=== PATIENT | female | born 1955 | race Caucasian/White ===

== ENCOUNTER → 2017-10-23 | Outpatient (CLI) | payer OTHER | LOC: CIMAGING 08:07 | PROVIDERS: ATTEND Internal Medicine Hematology & Oncology | DX: R63.4 Abnormal weight loss (principal); D64.9 Anemia, unspecified | CPT/HCPCS: 71020-PO; 76700-PO ==

== ENCOUNTER 2017-11-22 13:10 | Inpatient (IN) | payer OTHER ==
--- NOTE | 2017-11-22 13:22 | EDPHY ---
H & P Time Seen by Provider: 11/22/17 13:11 HPI/ROS: CHIEF COMPLAINT: Dizziness, vertigo, weight loss, bladder pain HISTORY OF PRESENT ILLNESS: Patient developed Lyme disease 4 years ago in [place]. She then moved into a house in [place] and felt like she got exposed to something in the air and has been sick since. Patient was diagnosed with anemia by Dr. Powell in January and referred to Dr. Jorge from [facility]. The patient is recently had ultrasound of her abdomen and chest x-ray and a CT scan 2 weeks ago that apparently showed some small intestine mass and she is supposed to get an MRCP for follow-up. She developed bladder pain over the past week but had a negative urinalysis at her primary care physician's office this past Monday. Today she presents with severe vertigo which started 4 days ago. She describes it as like "a ceiling fan "which is worse with movement and turning her head and better when she lies still in closes her eyes. It is not associated with headache or neck pain. Today she was having tachycardia and difficulty walking and severe vertigo so presents to the ED for evaluation. REVIEW OF SYSTEMS: Eye: no change in vision or double vision ENT: no sore throat Cardiac: no chest pain or syncope Pulmonary: Persistent cough but no hemoptysis Abdomen: Decreased oral intake but no vomiting or diarrhea, abdominal bloating. Musculoskeletal: no back pain or neck pain Skin: no rash Neuro: no headache Constitutional: Patient has had night sweats and 30 lb weight loss over the past year. She had TB testing a year and half ago which was negative. : no urinary symptoms A comprehensive 10 point review of systems is otherwise negative aside from elements mentioned in the history of present illness. PAST MEDICAL HISTORY: Anemia for which she saw Dr. Jorge recently Social history: , has been to [facility], no drugs General Appearance: Alert and conversant, cooperative. She is quite thin. Eyes: No scleral icterus. Pupils equal round reactive and extraocular motions intact. ENT, Mouth: Normal mucous membranes. Respiratory: Normal respiratory effort, breath sounds equal, lungs are clear to auscultation. Cardiovascular: Regular rate and rhythm. Gastrointestinal: Abdomen is soft and non tender. Neurological: Alert, face symmetric, normal motor and sensory in extremities. Normal [id number]-wert bilaterally and no pronator drift, speech is symmetric. Skin: Warm and dry, no rashes. Musculoskeletal: No peripheral edema. Psychiatric: Not agitated. Emergency Department course/MDM: Meclizine 25 mg, labs, discussion with [facility]. Admission for complicated patient with multiple worsening severe symptoms and vertigo which is disabling because she has trouble walking today secondary to symptoms. Appears to be peripheral vertigo, no headache, no neck pain, normal neurologic examination, extinguishes at rest. Chest x-ray and ultrasound reports dated October 23 show normal chest x-ray and possible gallstone. Discussed Viv Garcia who will consult, possibly continue Luisito's outpatient workup as inpatient. Constitutional: Initial Vital Signs Temperature (C) 37.2 C 11/22/17 13:19 Heart Rate 117 H 11/22/17 13:19 Respiratory Rate 16 11/22/17 13:19 Blood Pressure 126/84 H 11/22/17 13:19 O2 Sat (%) 96 11/22/17 13:19 O2 Delivery Mode Room Air Allergies/Adverse Reactions: Penicillins Allergy (Verified 11/22/17 13:19) Sulfa (Sulfonamide Antibiotics) Allergy (Verified 11/22/17 13:18) Home Medications: Medication Instructions Recorded NK [No Known Home Meds] 11/22/17 Medical Decision Making - Diagnostics EKG Interpretation: 12-lead EKG interpreted by me; official reading is in trace master. My interpretation is sinus tachycardia otherwise normal, normal intervals. Differential Diagnosis: Differential diagnosis considered for dizziness including but not limited to peripheral and central causes of vertigo, orthostatic causes including dehydration, and blood loss. Consult/Admit Bed Type: [facility], Viv Garcia for [place] [id number] - Data Points Laboratory Results: Laboratory Results 11/22/17 13:25 11/22/17 13:25 Medications Given: Ertapenem (Invanz) 1 gm IVP DAILY NETTIE PRN Reason: Protocol Stop: 12/22/17 20:59 Last Admin: 11/22/17 22:42 Dose: 1 gm Lactated Ringer's (Lr) 1,000 mls @ 100 mls/hr IV CONT NETTIE Stop: 05/21/18 15:29 Last Admin: 11/22/17 16:24 Dose: 1,000 mls Discontinued Medications Acetaminophen (Tylenol) 1,000 mg PO ONCE ONE Stop: 11/22/17 17:42 Last Admin: 11/23/17 04:11 Dose: Not Given Diphenhydramine HCl (Benadryl) 50 mg PO ONCE ONE Stop: 11/22/17 17:43 Last Admin: 11/23/17 00:57 Dose: 25 mg Levofloxacin (Levaquin) 750 mg PO DAILY AT 10AM NETTIE PRN Reason: Protocol Stop: 12/22/17 15:14 Last Admin: 11/23/17 04:11 Dose: Not Given Levofloxacin (Levaquin) 500 mg PO DAILY AT 10AM NETTIE PRN Reason: Protocol Stop: 12/22/17 15:14 Last Admin: 11/22/17 15:13 Dose: 500 mg Meclizine HCl (Meclizine Hcl) 25 mg PO EDNOW ONE Stop: 11/22/17 13:53 Last Admin: 11/22/17 14:11 Dose: 25 mg Departure - Departure Disposition: [facility] Acute Clinical Impression: Vertigo Anemia Qualifiers: Anemia type: unspecified type Qualified Code(s): D64.9 - Anemia, unspecified Condition: Good
[2017-11-22 13:42] LABS: PLATELET COUNT 492 10^3/uL (150-400)
[2017-11-22] MEDS ORDERED: MECLIZINE HCL 25 MG TAB PO ONE (13:52)
--- NOTE | 2017-11-22 14:42 | CPEKG ---
Heart Rate: 111 RR Interval: 541 P-R Interval: 136 QRSD Interval: 68 QT Interval: 340 QTC Interval: 462 P Roxbury: 59 QRS Roxbury: 12 T Wave Roxbury: 56 EKG Severity - OTHERWISE NORMAL ECG - EKG Impression: SINUS TACHYCARDIA Electronically Signed By: Barry Tavarez 22-Nov-2017 14:42:13
[2017-11-22] MEDS ORDERED: MECLIZINE HCL 25 MG TAB PO PRN (15:05)
[2017-11-22] MEDS ORDERED: levOFLOXACIN 500 MG/DEXTROSE/100 ML BAG IV ONE (15:05)
[2017-11-22] MEDS ORDERED: ONDANSETRON 4 MG/2 ML VIAL IVP PRN (15:25)
[2017-11-22] MEDS ORDERED: ACETAMINOPHEN 325 MG TAB PO PRN (15:25)
[2017-11-22] MEDS ORDERED: ONDANSETRON DISINTEGRATING 4 MG TAB PO PRN (15:25)
[2017-11-22] MEDS ORDERED: LR 1,000 ML IV SCH (15:30)
--- NOTE | 2017-11-22 16:07 | GHP ---
[f rep st] HISTORY AND PHYSICAL DATE OF ADMISSION: 11/22/2017 CHIEF COMPLAINT: Vertigo. HISTORY OF PRESENT ILLNESS: A 62-year-old female with a complicated recent history, presents with about 4 days of vertigo. Described as a sensation of the room spinning. She has felt nauseous, has had no vomiting, has not fallen, but has come close. This has been associated with some tachycardia. She does not have any real chest pain either. She has never had an episode of vertigo before. She has had a few episodes of tachycardia associated with hypotension, the last about 3 months ago when she was on an airplane. She has not fallen or had syncope, though she felt as though she were close. She has not had any significant workup for that. She has recently been seeing Dr. Jorge for workup of an intestinal mass. She had a CT scan done at [facility], which I reviewed with Dr. 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 She has leukocytosis, anemia, and significant thrombocytosis. She has an elevated alk phos, with a low LDH. She is quite iron deficient anemia, has received IV iron in Dr. Jorge's office. She also describes foul-smelling urine with a sense of dysuria and frequency. This has been going on for some time. She reports a negative urinalysis. She has not had any vomiting or nausea. She has had very strange bowel movements, which she describes as mucousy, nonbloody, nonbilious. They are mostly gas. She also notes that her abdomen has become more distended. She has lost 30 pounds over the last year unintentionally. She has had night sweats, which have been profound for about the last year. PAST MEDICAL/SURGICAL HISTORY: 1. Reported Lyme disease. 2. 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 MEDICATIONS: None. ALLERGIES: Penicillin and sulfa. FAMILY HISTORY: Reviewed and noncontributory. 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 REVIEW OF SYSTEMS: A 10-point review of systems is conducted, and is negative, except per HPI. PHYSICAL EXAM: VITAL SIGNS: Blood pressure 123/71, heart rate 112, respiration rate 18, saturating 97% on room air. Temperature is 37.2. GENERAL : The patient is a very pleasant female, who appears somewhat uncomfortable, in no acute distress. HEENT: Shows to be normocephalic, atraumatic. CARDIOVASCULAR: Shows a regular rate and rhythm. No murmurs, rubs, or gallops. PULMONARY: Shows lungs clear to auscultation bilaterally. ABDOMEN: Soft. She has mildly distended and somewhat tympanic. She is tender to palpation, somewhat diffusely. SKIN: Shows no rash. : Shows no Croft. NEUROLOGIC: Shows her to be alert and oriented x3. She is moving all extremities. PSYCHIATRIC: Shows normal mood and affect. LABS: White count 15.4, hemoglobin 8.4, platelets are 492. Sodium 132. Urinalysis shows 50-182 whites. There is 1+ bacteria. Some blood protein. DATA: 1. I discussed this with Dr. Walker. We will admit to med/surg. 2. I reviewed this with Dr. Gu. Summarized per HPI. 3. I personally viewed and interpreted her EKG, this shows sinus tachycardia. Nothing acutely ischemic. IMPRESSION AND PLAN: 1. 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 Garcia for some advice on further workup. The patient reports an MRCP had been ordered, though I am unsure exactly how this will help , I will hold off on ordering that for now. May be difficult to get to endoscopically. We will place further orders after discussing with Dr. Garcia. 2. Vertigo: Concerning in the setting of possible small bowel lymphoma. I have ordered a CT head, consider MRI. 3. Leukocytosis, anemia, thrombocytosis: Due to underlying process. She declined a bone marrow biopsy, this would be indicated. 4. Elevated alkaline phosphatase: No bone involvement seen on CT scan. I do note that she had a possible polyp on an ultrasound, with a recommended 6 month followup. 5. Iron deficiency anemia: She has received IV iron. She is still anemic, however, this has improved. 6. Code status: She would like to be full code, but would not want to be kept along in a prolonged fashion on machines. ADDENDUM: discussed with Lucy Garcia and Yue Plan: - MR enterography to help localize tumor - possible EGD/EUS with biopsy - check Lyme PCR as it can be associated with lymphoma - treat UTI /[id number]/MODL MTDD
[2017-11-22] MEDS ORDERED: ACETAMINOPHEN 500 MG TAB PO ONE (17:41)
[2017-11-22] MEDS ORDERED: diphenhydrAMINE 25 MG CAP PO ONE (17:42)
--- NOTE | 2017-11-22 20:29 | GCON ---
[f rep st] CONSULTATION NEW PATIENT CONSULT DATE OF CONSULTATION: 11/22/2017 REFERRING PHYSICIAN: Juan Antonio Frias MD REASON FOR CONSULTATION: Patient known to Dr. Jorge with ongoing workup of iron-deficiency anemia, presents with worsening symptoms including night sweats and vertigo. HISTORY OF PRESENT ILLNESS: The patient is a 62-year-old woman with microcytic anemia and thrombocytosis. She initially met with Dr. Jorge in January of 2016 for a diagnosis of microcytic, normochromic anemia. She reports she has had chronic health problems since 2013. She was initially diagnosed with Lyme disease and was being treated by an herbalist named Dr. Walker in [place]. She did not take any antibiotic therapy. She was also coincidentally diagnosed with babesiosis, also a tick-borne disease. She did a variety of complementary therapies, including liver cleanse and castor oil treatments. She lost about 30 pounds over this time. She has only received homeopathic regimens for Lyme disease and babesiosis. She was evaluated for celiac disease, but it appears her serologic testing has been negative. She did respond to 2 iron infusions and had evidence of iron deficiency anemia. She had 2 doses of Feraheme, and hemoglobin came up. Unfortunately, she states she did not tolerate this treatment well. She does take a minimal amount of oral iron but is unsure how much elemental iron she is actually getting on a day-to-day basis. She has had a colonoscopy in December [address] Jorge had recommended upper endoscopy and further evaluation, but patient has refused, fearing that she could not tolerate diagnostic test. For several months now, she continues to have weight loss, fatigue, and night sweats. Anemia continues to still be an issue. More recent iron studies show iron deficiency as well as chronic inflammation. Finally, patient was convinced to get a CT November 07. The CT scan was done at [facility], which was reviewed with Dr. 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 She has a very large mass in the center of her abdomen, and no other associated lymphadenopathy was described. Patient has had some leukocytosis, anemia, and significant thrombocytosis, some of which may be reactive. She has had an elevated alkaline phosphatase, but low LDH. She has not really had any further workup and presents acutely with vertigo over the past couple days. Notably, she has also had an ultrasound of the abdomen, 10/23/2017. Showed a nonmobile structure in the gallbladder measuring 1.5 cm, likely representing a stone, given subtle shadowing and nonpolypoid in shape. Polyp is felt to be much less likely. She showed hepatic steatosis and probably gallbladder sludge. She had a recent chest x-ray that showed no acute cardiopulmonary abnormality. REVIEW OF SYSTEMS: As per HPI. Otherwise, 14-point review of systems negative. She has multiple complaints. She denies any skin lesions, other than some macular-papular rash on her face, but no skin nodules. Denies nausea or vomiting, but poor p.o. intake. She has had more liquidy stools and some dysuria. PAST MEDICAL HISTORY: 1. Reported Lyme disease as well as babesiosis, neither of which were treated with antibiotics; rather, homeopathic regimens. 2. 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 MEDICATIONS: None. ALLERGIES: To penicillin and sulfa. FAMILY HISTORY: Noncontributory. 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 No smoking, alcohol, tobacco. PHYSICAL EXAM: VITAL SIGNS: Today show blood pressure 113/75, heart rate 115. She is saturating 97% on room air. Temp 37.2. GENERAL: She is a very pale, cachectic, chronically ill woman, not in acute distress HEENT: Anicteric. Oropharynx is clear, but mucous membranes are dry. NECK: Supple. No JVD. No cervical or supraclavicular lymphadenopathy. HEART: Tachycardic. LUNGS: Clear to auscultation bilaterally. ABDOMEN: She has some distention and very tender to palpation. I do feel a large midline mass. SKIN: Macular-papular changes on face, otherwise no changes. NEUROLOGIC: Alert and oriented x3. Moving all extremities. LABS: Today show a white blood cell count of 15.4, hemoglobin 8.4, hematocrit 27.1, MCV is 82, platelet count of 492,000, neutrophil percentage 80, lymphocytes 9, monos 8.5, eos 0.5, basos 0.5. BMP shows a sodium 132, glucose of 109, creatinine of 0.6, calcium of 8.6. Urine is 2+ blood, 3+ leukocyte esterase, 50-180 WBCs, 1+ bacteria. Culture is pending. ASSESSMENT AND PLAN: 62-year-old woman with the above-mentioned past medical history, who presents with vertigo, dizziness, anemia, and evidence of a large mass, possibly associated with the small bowel. 1. Vertigo could be multifactorial, but certainly agree with CT head. Possibly related to anemia or central nervous system involvement of something associated with the abdominal mass. Will follow up imaging. Hydrate. 2. Anemia. Iron studies more recently demonstrated a mixed picture. She had previous history of iron deficiency anemia with some response to Feraheme. TIBC is still low, suggesting some chronic inflammation. I think she would benefit clinically from 2 units of packed red blood cells, which will be given today. Patient agrees. She will be typed and crossed, and will follow. I think her thrombocytosis is partially reactive. Leukocytosis is less clear, but cultures are pending. 3. Leukocytosis. I think sending stool and urine for culture appropriate. I also feel that a history of Lyme disease and babesiosis needs to be further clarified with possible Infectious Disease consult, as she was never treated with antibiotics, and I have no idea if she has cleared these infections, and may be related to her underlying presentation. 4. Abnormality on CT demonstrating a large mass, possibly related to lymphoma. We will consult Dr. Turner for possible MR enterography + EGD with EUS. EGD would be indicated to evaluate a possible source of iron deficiency anemia, and possibly gain pathology for definitive diagnosis. Certainly a concern for lymphoma. Usually Lyme disease presents with a cutaneous lymphoma. I am unclear the species of Lyme that she was diagnosed with. She has no other autoimmune disease that I am aware of. Her LDH was actually low. We are sending immunoglobulins as well as SPEP and uric acid today to complete her workup. Further diagnostic tests will be driven by the results of pathology. She may also warrant further imaging. 5. Dysuria as well as diarrhea. Urine culture and stool culture appropriate to complete infectious workup, given leukocytosis. She is currently not on any antibiotics and does not appear to be septic. Over 45 minutes was spent with patient, more than 50% of time counseling and coordinating care. Case was discussed with Dr. Frias and patient. I reviewed her imaging and labs myself. /[id number]/MODL MTDD
[2017-11-22] MEDS: ERTAPENEM 1 GM VIAL IVP SCH (22:42)
[2017-11-23] MEDS ORDERED: diphenhydrAMINE 25 MG CAP PO ONE (00:54)
[2017-11-23] MEDS ORDERED: GADOBUTROL 10 ML VIAL IVP ONE (08:19)
[2017-11-23] MEDS ORDERED: GLUCAGON HCL 0.3 MG in SYRINGE 0.3 ML IVP ONE (08:30)
[2017-11-23] MEDS ORDERED: ENOXAPARIN 40 MG/0.4 ML SYR SC SCH (09:00)
[2017-11-23] MEDS: ERTAPENEM 1 GM VIAL IVP SCH (10:46)
[2017-11-23 11:27] LABS: PLATELET COUNT 401 10^3/uL (150-400)
--- NOTE | 2017-11-23 12:12 | ASMTCASEMG ---
Living Arrangements What is your living Answers: With Spouse arrangement? Who do you live with? Type Of Residence What kind of residence do Answers: House you live in? Discharge Plan Comments Coordination Status Comments Notes: Pt is a 62 y/o female admitted for vertigo. Pt will most likely d/c independent when medically stable. No therapies ordered at this time. CM available for changes. Plan: Independent Date Signed: 11/23/2017 12:11 PM Electronically Signed By:LEIGH Das
[2017-11-23] MEDS ORDERED: IOPAMIDOL (ISOVUE 370) 100 ML BTL IV ONE (13:32)
--- NOTE | 2017-11-23 14:28 | SOAPPROG ---
SOAP Progress Note Assessment/Plan: Assessment/Plan: 1. 62 yo woman w iron deficiency anemia admitted for vertigo, weakness, and B Sx w outpt imaging suggestive abnormality of small bowel (distal ileum) 1. Abnormality of small bowel - pronounced wall thickening of of distal ileum w associated mesenteric adenopathy workup has been delayed since 2016 due to pt preference Concern for lymphoma (MALT, NHL, etc) vs adenoca; other DDx includes GIST, neuroendocrine tumor (which I think are less likely) MR enterography confirms distal ileum abnormality may need repeat colonoscopy to reach for path vs EGD - GI aware LDH is low (120) uric acid ok SPEP, quant immunoglobins pending 2. WILDA - anemia multifactorial but definitely component of previous iron deficiency likely related to #1 Feraheme in past 2units of pRBCs overnight, Hgb improved 3. Vertigo - CT head negative Sx improved w blood 4. Low grade fever - may be related to #1 or UTI on Ertapenem Cx pending 5. Hx of Lyme Dz? - serologies pending Lyme associated w MALT lymphoma but usually cutaneous 6. tachycardia - elevated D-dimer CTA pending 7. Hepatic cysts - seen on imaging and unclear etiology pt not aware of cysts in past certainly concerned may be related to process #1 and may need further imaging to clarify 11/23/17 14:30 Subjective: Still weak and fatigued but vertigo better since blood Objective: Vital Signs Temp Pulse Resp BP Pulse Ox 36.6 C 115 H 20 107/82 H 93 11/23/17 08:00 11/23/17 08:30 11/23/17 08:00 11/23/17 08:00 11/23/17 08:00 Laboratory Results 11/23/17 11:00 Gen - thin appearing, fatigued, NAD HEENT - anicteric CV - tachy Resp - clear anteriorly Abd - TTP mid abdomen, exam limited by pain but feel a mass there Ext - no edema Neuro - nonfocal ICD10 Worksheet Patient Problems: Problems Problem Status Onset Anemia Acute Vertigo Acute
--- NOTE | 2017-11-23 15:58 | ECHO ---
[email or web address] [address] Main: [phone] Fax: [email or web address] Echocardiogram Name: HERMES SOTO MR#: [id number] Study Date: 11/23/2017 Study Time: 10:18 AM Date of : 1955 Age: 62 year(s) Height: 165.1 cm (65 in.) Weight: 42.64 kg (94 lb.) BSA: 1.44 m2 Gender: Female Examination: Echo Indication: tachycardia Image Quality: Contrast: Requested by: Juan Antonio Frias BP: 107 mmHg/82 mmHg Heart Rate: Rhythm: Indication: tachycardia Procedure Staff Properties Supervisor: Bri Anguiano Reading Physician: Devin Hleler Requesting Provider: Conclusions: Normal size left ventricle. No LV hypertrophy. Normal global systolic LV function. EF is 58 %. No regional wall motion abnormality. Normal size right ventricle. Mild mitral valve regurgitation is present. Mild tricuspid regurgitation is present. Measurements: Chambers Valvular Assessment AV/MV Valvular Assessment TV/PV Normal Normal Normal Name Value Range Name Value Range Name Value Range Ao Cydney (MM): 3.3 cm (2.2 cm-3.7 AV Vmax: 1.04 m/s (1 m/s-1.7 TR Vmax: 2.37 mm/s ( - ) cm) m/s) TR PGmax: 22 mmHg ( - ) IVSd (2D): 0.6 cm (0.6 cm-1.1 AV maxP mmHg ( - ) syst. PAP: 27 mmHg ( - ) cm) MV E Vmax: 0.46 m/s ( - ) LVDd (2D): 4.5 cm (3.9 cm-5.3 MV A Vmax: 0.76 m/s ( - ) cm) MV E/A: 0.61 ( - ) LVDs (2D): 3.2 cm (2.1 cm-4 cm) LVPWd (2D): 0.5 cm ( - ) LVEF (MOD4): 58 % (>=55 %) Continued Measurements: Chambers Valvular Assessment AV/MV Valvular Assessment TV/PV Name Value Name Value Name Value LADs: 2.9 cm MV E' Septal: 0.07 m/s CVP (est.): 5 mmHg Patient: HERMES SOTO Study Date: 11/23/2017 Page 1 of 2 10:18 AM LADs Lon.4 cm MV E/E' Septal: 7.10 LA Area: 9.3 cm2 MV E/E' Lateral: 5.60 Additional Vessels Name Value Ao Ascendin.3 cm Findings: Left Ventricle: Normal size left ventricle. No LV hypertrophy. Normal global systolic LV function. EF is 58 %. No regional wall motion abnormality. Right Ventricle: Normal size right ventricle. Left Atrium: The left atrium is normal in size. Right Atrium: The right atrium is normal in size. Mitral Valve: The mitral valve is normal in appearance and function. Mild mitral valve regurgitation is present. Aortic Valve: The aortic valve is normal in appearance and function. Tricuspid Valve: The tricuspid valve is normal in appearance and function. Mild tricuspid regurgitation is present. The pulmonary artery pressure is normal. Pulmonic Valve: The pulmonic valve is normal in appearance and function. Aorta: The aorta is normal. Normal size aortic root measuring 3.3 cm. Normal size ascending aorta measuring 3.3 cm. Pericardium: No pericardial effusion. (No Signature Object) Patient: HERMES SOTO Study Date: 11/23/2017 Page 2 of 2 10:18 AM [id number]
[2017-11-23] MEDS ORDERED: HEPARIN 10,000 UNIT/10 ML MDV (1,000 UNIT/ML) IVP PRN (16:49)
[2017-11-23] MEDS ORDERED: HEPARIN 10,000 UNIT/10 ML MDV (1,000 UNIT/ML) IVP ONE (16:49)
[2017-11-23] MEDS ORDERED: HEPARIN/DEXTROSE 500 ML IV SCH (17:00)
[2017-11-23 17:48] LABS: PLATELET COUNT 386 10^3/uL (150-400)
[2017-11-23 18:04] LABS: INR 1.1 (0.83-1.16); PROTIME(PATIENT) 14.4 SEC (12.0-15.0)
--- NOTE | 2017-11-23 18:08 | HOSPPROG ---
Hospitalist Progress Note Assessment/Plan: * SB thickening -differential SB lymphoma vs. SMA syndrome with chronic ischemia vs. infection -30 lb unintentional weight loss and night sweats for 2 years -check CTA abd in am -d/w Dr. Turner - attempt enteroscopy to reach distal ileum for biopsy -stool + Ecoli Shiga like toxin - unclear significance * Acute PE -IV heparin * Iron deficient anemia -s/p 2 units PRBC * UTI -Ertapenem * Protein calorie malnutrition BMI 16 -dietary consult * Reported h/o lyme and babesiosis s/p naturopathic tx Subjective: Extreme tachycardia up to > 200 when she gets out of bed. CTA showed acute PE. Objective: Vital Signs Temp Pulse Resp BP Pulse Ox 35.9 C L 107 H 17 104/70 100 11/23/17 15:30 11/23/17 15:30 11/23/17 15:30 11/23/17 15:30 11/23/17 15:30 Microbiology 11/23/17 15:35 Gastrointestinal Tract Panel (PCR) - Final Stool E.coli Shiga-Like Toxin Pos 11/22/17 11/23/17 11/24/17 05:59 05:59 05:59 Output Total 300 Balance -300 d/w Dr. Turner and Dr. Garcia regarding biopsy approach MRI enterography - SB abnormality same as recent CT Laboratory Tests 11/23/17 11/23/17 11/23/17 11:00 11:00 11:00 WBC 23.54 H D Hct 34.9 L Plt Count 401 H D D-Dimer 2.78 H VBG Lactic Acid 1.2 - Physical Exam Constitutional: no apparent distress, appears nourished, not in pain Cardiovascular: regular rate and rhythym, no murmur, rub, or gallop Respiratory: no respiratory distress, no rales or rhonchi, clear to auscultation Gastrointestinal: normoactive bowel sounds, soft, non-tender abdomen, no palpable masses Skin: no rashes or abrasions, no fluctuance, no induration Neurologic: AAOx3, sensation intact bilaterally Psychiatric: interacting appropriately, not anxious, not encephalopathic, thought process linear ICD10 Worksheet Patient Problems: Problems Problem Status Onset Anemia Acute Vertigo Acute
[2017-11-23] MEDS ORDERED: PEG 3350/NA SULF,BICARB,CL/KCL (GAVILYTE-G) 4000 ML BTL PO ONE ×2 (18:12→18:13)
--- NOTE | 2017-11-24 00:20 | GCON ---
[f rep st] CONSULTATION DATE OF CONSULTATION: 11/23/2017 REFERRING PHYSICIAN: Juan Antonio Frias MD REASON FOR CONSULTATION: Abnormal imaging. CHIEF COMPLAINT: Weight loss/anemia/abnormal imaging. HISTORY OF PRESENT ILLNESS: The patient is a 62-year-old female with history of Lyme disease, anemia of chronic disease/iron deficiency anemia, who presents to [facility] with complaints of dizziness/vertigo. The patient has had significant complaints of weakness as well as anemia of chronic disease for approximately 9 months. She had an extensive workup including imaging studies by Dr. Jorge at [facility] which did reveal a mass lesion in her small bowel. The patient has had significant complaints of having a very low appetite as well as weight loss. She has lost approximately 30 pounds in the last year. She also complains of significant fatigue. She does complain of night sweats at night and has developed a chronic cough. She denies any exacerbating or alleviating factors to her symptoms. During her workup, she had a CT scan and MRI enterography which does reveal a mass lesion in the distal ileum, suggestive of a possible lymphoma. She did have a colonoscopy done earlier this year. I am being asked by Dr. Frias to evaluate the patient in regard to her small bowel mass. PAST MEDICAL HISTORY: 1. Lyme disease. 2. Anemia of chronic disease. PAST SURGICAL HISTORY: Hernia repair. MEDICATIONS: None. ALLERGIES: Penicillin, sulfa, and NSAIDs. SOCIAL HISTORY: . No significant alcohol or tobacco use. FAMILY HISTORY: Two brothers with hemochromatosis. A sister with celiac disease. REVIEW OF SYSTEMS: A 12-point comprehensive review of systems was asked. Pertinent positives and negatives per HPI. PHYSICAL EXAM: VITAL SIGNS: Blood pressure 104/70, heart rate 107, temperature 35.9. GENERAL: Thin. In no acute distress. Awake and alert. HEENT: Anicteric sclerae, moist mucosa. NECK: No JVD. CARDIOVASCULAR: Regular rhythm. Positive S1 , S2. No murmurs or gallops are appreciated. LUNGS: Clear to auscultation bilaterally. No wheezes, rales or rhonchi. ABDOMEN: Soft, tender in the periumbilical area. Slight distention. No guarding or rebound. Positive bowel sounds. EXTREMITIES: No edema. NEUROLOGIC: 2 through 12 grossly intact. PSYCHIATRIC: Normal affect. SKIN: Nonicteric. Has a reddish rash on her cheek. MUSCULOSKELETAL: No joint effusions. BLOOD WORK: WBCs 11.01, hemoglobin 10.5, hematocrit 31.7. INR 1.1. TSH 3.7. Sodium 136, potassium 4.4, chloride 104, bicarb 21, BUN 10, creatinine 0.6, AST 15, ALT 28, alkaline phosphatase 199. IMAGING: MRI enterography with thickening/mass in the distal small bowel. ASSESSMENT AND PLAN: 1. Abnormal imaging- with weight loss and anemia of chronic disease/iron deficiency anemia. . Does have complaints of night sweats. Unsure what this mass lesion is? Crohn disease versus lymphoma versus other? At this time, I recommend to proceed with colonoscopy with intubation of the terminal ileum with possible biopsies of this area as well as EGD. The risks, benefits, and alternatives of the procedure were discussed in great detail with the patient. The risk of infection, bleeding, perforation, sedation were discussed. All questions answered. Informed consent obtained. If we cannot, reach the mass on colonoscopy may need surgical intervention. 2. History of Lyme disease. 3. History of anemia of chronic disease. Thank you very much for this consultation. /[id number]/MODL MTDD
[2017-11-24 04:43] LABS: PLATELET COUNT 375 10^3/uL (150-400)
--- NOTE | 2017-11-24 07:10 | PDMN ---
Medical Necessity Medical necessity: Pt meets INPT criteria per MD as of 11/23/17 and MCG M-290 Pulmonary Embolism (acute PE on CTA with extreme tachycardia - HR > 200 when gets out of bed, req. IV heparin; anemia s/p 2 units pRBCs, small bowel thickening req. further w/u, UTI req. IVABx).
[2017-11-24 07:24] LABS: HIV TYPE 1 AND 2 NEGATIVE (NEGATIVE)
[2017-11-24] MEDS: ERTAPENEM 1 GM VIAL IVP SCH (08:06)
[2017-11-24] MEDS ORDERED: LR 1,000 ML IV ONE (10:30)
[2017-11-24] MEDS ORDERED: PROPOFOL/EMULSION 500 MG/50 ML BOTTLE IV ONE (10:53)
--- NOTE | 2017-11-24 11:13 | PDANEPAE ---
ANE Past Medical History - Cardiovascular History Hx Hypertension: No Hx Arrhythmias: No Hx Chest Pain: No Hx Coronary Artery / Peripheral Vascular Disease: No Hx CHF / Valvular Disease: No Hx Palpitations: No - Pulmonary History Hx COPD: No Hx Asthma/Reactive Airway Disease: No Hx Recent Upper Respiratory Infection: No Hx Oxygen in Use at Home: No Hx Sleep Apnea: No Sleep Apnea Screening Result - Last Documented: Negative - Endocrine History Hx Diabetes: No Hypothyroid: No Hyperthyroid: No Obesity: no - GI History Gastrointestinal History Comment: recent CT revealed small bowel mass - Chronic Pain History Chronic Pain: No ANE Review of Systems Review of Systems: - Exercise capacity METS (RN): 4 METS - Systems Constitutional: Reports: weakness, weight loss Gastrointestinal: Reports: no symptoms ANE Patient History - Allergies Allergies/Adverse Reactions: Penicillins Allergy (Verified 11/23/17 16:08) Hives Sulfa (Sulfonamide Antibiotics) Allergy (Verified 11/23/17 16:08) Other-Enter Comments - Home Medications Home Medications: NK [No Known Home Meds] 11/22/17 [Last Taken Unknown] - NPO status NPO Since - Liquids (Date): 11/24/17 NPO Since - Liquids (Time): 00:00 NPO Since - Solids (Date): 11/24/17 NPO Since - Solids (Time): 00:00 - Anes Hx Anes Hx: no prior problems - Smoking Hx Smoking Status: Never smoked - Family Anes Hx Family Anes Hx: none ANE Labs/Vital Signs - Labs Result Diagrams: 11/24/17 03:26 11/24/17 03:26 - Vital Signs Blood Pressure: 102/60 Heart Rate: 93 Respiratory Rate: 20 O2 Sat (%): 94 Height: 165.1 cm Weight: 44.6 kg ANE Physical Exam - Airway Neck exam: FROM Mallampati Score: Class 2 Mouth exam: normal dental/mouth exam - Pulmonary Pulmonary: no respiratory distress, no rales or rhonchi, clear to auscultation - Cardiovascular Cardiovascular: regular rate and rhythym - ASA Status ASA Status: II ANE Anesthesia Plan Anesthesia Plan: MAC Total IV Anesthesia: Yes
[2017-11-24] MEDS ORDERED: LR 500 ML IV PRN (11:16)
[2017-11-24] MEDS ORDERED: ONDANSETRON 4 MG/2 ML VIAL IVP PRN (11:16)
[2017-11-24] MEDS ORDERED: NALOXONE HCL 0.4 MG/ML INJ IVP PRN ×2 (11:16→23:11)
[2017-11-24] MEDS ORDERED: ACETAMINOPHEN 500 MG TAB PO PRN (11:16)
--- NOTE | 2017-11-24 12:05 | POSTANESTH ---
Post Anesthetic Evaluation Cardiovascular Status: Normal, Stable Respiratory Status: Normal, Stable Level of Consciousness/Mental Status: Can Participate in Eval Pain Control: Adequate, Prn Tx Ordered Nausea/Vomiting Control: Adequate, Prn Tx Ordered Complications Possibly Related to Anesthesia: None Noted
--- NOTE | 2017-11-24 12:24 | SOAPPROG ---
SOAP Progress Note Assessment/Plan: Assessment/Plan: 1. 62 yo woman w iron deficiency anemia admitted for vertigo, weakness, and B Sx w outpt imaging suggestive abnormality of small bowel 1. Abnormality of small bowel - pronounced wall thickening of of distal ileum w associated mesenteric adenopathy workup has been delayed since 2016 due to pt preference Concern for lymphoma (MALT, NHL, etc) vs adenoca; other DDx includes GIST, neuroendocrine tumor (which I think are less likely) MR enterography confirmed distal ileum abnormality LDH is low uric acid nml, SPEP, quant immunoglobins not suggestive of heme malignancy Pt went for EGD/colonoscopy today - reviewed images w Dr Turner myself - shows large walled off perforation w associated exophytic mass in jejunum procedure was aborted and surgical consult called in to evaluate Recommend pt have surgical eval for resection; also a concern this has already spread but given perforation, surgery is recommended final plan will plan on pathology 2. WILDA - anemia multifactorial but definitely component of previous iron deficiency likely related to #1 2units of pRBCs this admission, Hgb improved 3. Vertigo - CT head negative Sx improved w blood 4. Low grade fever - may be related to #1 or UTI or on Ertapenem GI PCR w E. Coli Shiga toxin + blood cultures pending but NGTD 5. Hx of Lyme Dz? - serologies negative 6. Pulmonary embolus - on heparin gtt 7. Hepatic cysts - appear benign 11/24/17 12:25 11/24/17 12:27 Subjective: Saw pt while in endoscopy Objective: Vital Signs Temp Pulse Resp BP Pulse Ox 36.4 C 93 20 102/60 94 11/24/17 11:58 11/24/17 11:16 11/24/17 11:16 11/24/17 11:16 11/24/17 11:16 Microbiology 11/23/17 15:35 Gastrointestinal Tract Panel (PCR) - Final Stool E.coli Shiga-Like Toxin Pos Laboratory Results 11/24/17 03:26 11/24/17 03:26 11/23/17 11/24/17 11/25/17 05:59 05:59 05:59 Intake Total 200 Output Total 300 Balance -100 PT 14.4 SEC (12.0-15.0) 11/23/17 15:25 INR 1.10 (0.83-1.16) 11/23/17 15:25 Gen - sedated for procedure ICD10 Worksheet Patient Problems: Problems Problem Status Onset Anemia Acute Vertigo Acute
[2017-11-24] MEDS ORDERED: BUPIVACAINE 0.5% 30 ML SDV ONE ×2 (12:37→19:12)
--- NOTE | 2017-11-24 13:16 | SOAPPROG ---
SOAP Progress Note Assessment/Plan: Assessment: Plan: 11/24/17 13:14 GI S/p Enteroscopy and colonoscopy. See dictated enteroscopy note for details. Large exophytic mass in mid jejunum seen. A 2-3cm opening was seen in the bowel wall consistent with a contained perforation. Biopsies taken. Discussed case with surgery and oncology. Objective: Vital Signs Temp Pulse Resp BP Pulse Ox 36.2 C 72 15 104/59 L 98 11/24/17 13:00 11/24/17 13:00 11/24/17 13:00 11/24/17 13:00 11/24/17 13:00 Microbiology 11/23/17 15:35 Gastrointestinal Tract Panel (PCR) - Final Stool E.coli Shiga-Like Toxin Pos Laboratory Results 11/24/17 03:26 11/24/17 03:26 11/23/17 11/24/17 11/25/17 05:59 05:59 05:59 Intake Total 200 800 Output Total 300 3 Balance -100 797 PT 14.4 SEC (12.0-15.0) 11/23/17 15:25 INR 1.10 (0.83-1.16) 11/23/17 15:25 ICD10 Worksheet Patient Problems: Problems Problem Status Onset Vertigo Acute Anemia Acute
--- NOTE | 2017-11-24 13:27 | GPN ---
[f rep st] PROCEDURE NOTE DATE OF PROCEDURE: 11/24/2017 PROCEDURE: Enteroscopy/EGD COMMENT: An EGD was performed initially, but after the mass lesion could not be reached with colonoscopy with ileum intubation a enteroscopy was then performed. INDICATION: The patient is a 62-year-old female who presents for evaluation of iron deficiency anemia as well abnormal imaging where a mass was seen in the distal small bowel. She presents for further evaluation. CONSENT: Risks, benefits, and alternatives of the procedure were discussed in great detail with the patient. Risks of infection, bleeding, perforation, and sedation were discussed. All questions answered. Informed consent obtained. MEDICATIONS: Propofol. ESOPHAGOGASTRODUODENOSCOPY/ENTEROSCOPY: The proximal, mid, and distal esophagus were normal in appearance. The stomach was entered and closely examined. A hiatal hernia was noted. The duodenal bulb and 2nd and 3rd portion of the duodenum were normal in appearance. Biopsies were taken to rule out celiac sprue due to her anemia. After colonoscopic evaluation was done with intubation of the terminal ileum and advanced into the mid ileum with no mass found. A pediatric colonoscope was then introduced into the mouth and advanced to the mid/distal jejunum. It was advanced approximately 100 cm past the pylorus. A large exophytic ulcerated mass was seen in the suspected area of the midjejunum. There was a significant "defect"/opening in the mass lesion consistent with a contained perforation. The opening was at least 2-3 cms. Multiple biopsies were taken of the mass lesion. Biopsies were also taken for flow cytometry. Due to the size of this suspected contained perforation, it was suspected that she would need surgical evaluation. RECOMMENDATIONS: 1. Await biopsy results. 2. Surgical consultation. 3. Case discussed with surgery/oncology. /[id number]/MODL MTDD
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
[2017-11-24] MEDS ORDERED: HYDROmorphONE/DILAUDID 1 MG/ML INJ IVP PRN (18:03)
[2017-11-24] MEDS ORDERED: HYDROmorphONE/DILAUDID 2 MG TAB PO PRN (18:03)
[2017-11-24] MEDS ORDERED: BISACODYL 10 MG SUPP PR PRN (18:04)
[2017-11-24] MEDS ORDERED: LACTULOSE 20 GM/30 ML UDCUP PO PRN (18:04)
[2017-11-24] MEDS ORDERED: POLYETHYLENE GLYCOL 3350 17 GM PKT PO PRN (18:04)
[2017-11-24] MEDS ORDERED: MAGNESIUM HYDROXIDE 30 ML UDCUP PO PRN (18:04)
--- NOTE | 2017-11-24 18:09 | HOSPPROG ---
Hospitalist Progress Note Assessment/Plan: Assessment: 62-year-old female presents with a new diagnosis small-bowel mass complicated by small bowel perforation Plan: 1. Small bowel mass. 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 Toñito Turner, he reports biopsies taken, he has consulted with Dr. Rosen for consideration of surgery -discussed with Dr. Rosen, he plans to take the patient to the operating room for an open procedure, evaluation of whether the mass can actually be resected -IV and oral pain medications ordered, bowel regiment postoperatively, incentive spirometer -pathology is currently pending -discussed with Dr. Yvette Garcia, oncology ongoing consultation appreciated 2. Small bowel perforation. Acute, new problem this provider, further workup indicated. Most likely present on admission, the area was identified during the upper endoscopy but was not the result of the procedure, the 2-3 cm perforation was most likely encased in the tumor outlined above and is most likely the result of the tumor growth -continue IV antibiotics -OR emergently 3. Acute pulmonary embolism. Present on admission, identified by CT angiogram bilat lower lobes, most likely secondary to active malignancy -IV heparin drip given OR procedure, will discuss Lovenox with patient and surgery team following successful procedure 4. Iron deficient anemia. Chronic, status post 2 U of packed red blood cells, continue monitor hemoglobin level 5. Severe protein calorie malnutrition. Evidenced by low BMI of 16, evidence of proximal muscle wasting and general cachexia, most likely secondary to ongoing malignancy -get dietary consultation -Ensure supplements with meals once able to tolerate oral intake 6. Urinary tract infection. Evidenced by active urinary symptoms on presentation, potentially positive urinalysis, urine cultures currently no growth -continue IV antibiotics, primarily being used for perforated small bowel above 7. 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 It is unclear what methods patient's natural path used to make this diagnosis, her laboratory tests are negative -I suspect that the patient's current malignant condition has been misinterpreted as a chronic infection by these organisms, which is recognized in the literature to not be an actual chronic infection but rather misdiagnosis -appreciate Infectious Disease assistance with suggesting confirmatory methods to rule out these infections 8. Pulmonary nodule. Present on CT (personally interpreted), unclear if e/o extrapulm disease of above Diet. NPO Prophylaxis. High risk patient, SCDs, holding heparin drip Code. Full Disposition. Anticipated discharge uncertain, patient remains severely ill, requiring further workup as outlined above. Subjective: Patient reports urinary symptoms have significantly improved with antibiotics Objective: Vital Signs Temp Pulse Resp BP Pulse Ox 37.1 C 87 14 115/78 98 11/24/17 15:30 11/24/17 15:30 11/24/17 15:30 11/24/17 15:30 11/24/17 15:30 Microbiology 11/23/17 15:35 Gastrointestinal Tract Panel (PCR) - Final Stool E.coli Shiga-Like Toxin Pos Laboratory Results 11/24/17 03:26 11/24/17 03:26 11/23/17 11/24/17 11/25/17 05:59 05:59 05:59 Intake Total 200 800 Output Total 300 3 Balance -100 797 PT 14.4 SEC (12.0-15.0) 11/23/17 15:25 INR 1.10 (0.83-1.16) 11/23/17 15:25 - Physical Exam Constitutional: no apparent distress, chronically ill appearing, uncomfortable, cachectic Cardiovascular: regular rate and rhythym, no murmur, rub, or gallop, No edema Respiratory: other (Poor inspiratory effort), No expiratory wheeze, No inspiratory crackles, No bronchial breath sounds, No respiratory distress Gastrointestinal: normoactive bowel sounds, tenderness (Moderate to mild palpation), distension, No no palpable masses (Palpable mass from midline to left lower quadrant), No guarding Skin: other (Erythematous patches on bilateral cheeks) Musculoskeletal: other (Proximal muscle wasting) Neurologic: AAOx3, sensation intact bilaterally, No facial droop Psychiatric: interacting appropriately, not anxious, not encephalopathic, thought process linear ICD10 Worksheet Patient Problems: Problems Problem Status Onset Anemia Acute Vertigo Acute
--- NOTE | 2017-11-24 19:33 | PDANEPAE ---
ANE History of Present Illness Patient presents for Ex Lap, bowel resection ANE Past Medical History - Cardiovascular History Hx Hypertension: No Hx Arrhythmias: No Hx Chest Pain: No Hx Coronary Artery / Peripheral Vascular Disease: No Hx CHF / Valvular Disease: No Hx Palpitations: No - Pulmonary History Hx COPD: No Hx Asthma/Reactive Airway Disease: No Hx Recent Upper Respiratory Infection: No Hx Oxygen in Use at Home: No Hx Sleep Apnea: No Sleep Apnea Screening Result - Last Documented: Negative - Endocrine History Hx Diabetes: No Hypothyroid: No Hyperthyroid: No Obesity: no - GI History Gastrointestinal History Comment: recent CT revealed small bowel mass - Chronic Pain History Chronic Pain: No ANE Review of Systems Review of Systems: - Exercise capacity METS (RN): 4 METS ANE Patient History - Allergies Allergies/Adverse Reactions: Penicillins Allergy (Verified 11/23/17 16:08) Hives Sulfa (Sulfonamide Antibiotics) Allergy (Verified 11/23/17 16:08) Other-Enter Comments - Home Medications Home medications: home medication list seen and reviewed Home Medications: NK [No Known Home Meds] 11/22/17 [Last Taken Unknown] - NPO status NPO Status: no food or drink >8 hours NPO Since - Liquids (Date): 11/24/17 NPO Since - Liquids (Time): 00:00 NPO Since - Solids (Date): 11/24/17 NPO Since - Solids (Time): 00:00 - Smoking Hx Smoking Status: Never smoked ANE Labs/Vital Signs - Labs Result Diagrams: 11/24/17 03:26 11/24/17 03:26 - Vital Signs Blood Pressure: 115/78 Heart Rate: 87 Respiratory Rate: 14 O2 Sat (%): 98 Height: 165.1 cm Weight: 44.6 kg ANE Physical Exam - Airway Neck exam: FROM Mallampati Score: Class 2 Mouth exam: normal dental/mouth exam, small mouth opening - Pulmonary Pulmonary: no respiratory distress - Cardiovascular Cardiovascular: regular rate and rhythym - ASA Status ASA Status: III, E ANE Anesthesia Plan Anesthesia Plan: general endotracheal anesthesia (RBA discussed)
[2017-11-24] MEDS ORDERED: PROPOFOL 200 MG/20 ML VIAL ONE (19:36)
[2017-11-24] MEDS ORDERED: fentaNYL 100 MCG/2 ML INJ ONE (19:36)
[2017-11-24] MEDS ORDERED: SUCCINYLCHOLINE CHLORIDE 200 MG/10 ML SYR IVP ONE (19:37)
[2017-11-24] MEDS ORDERED: LIDOCAINE 2% 5 ML SDV ONE (19:37)
[2017-11-24] MEDS ORDERED: DEXAMETHASONE 4 MG/ML VIAL ONE (19:55)
[2017-11-24] MEDS ORDERED: ROCURONIUM 50 MG/5 ML VIAL ONE ×2 (19:55→21:56)
[2017-11-24] MEDS ORDERED: ONDANSETRON 4 MG/2 ML VIAL ONE (19:55)
[2017-11-24] MEDS ORDERED: HYDROmorphONE/DILAUDID 2 MG/ML INJ ONE (20:17)
[2017-11-24 21:34] LABS: PLATELET COUNT 339 10^3/uL (150-400)
[2017-11-24] MEDS ORDERED: THROMBIN (BOVINE) 20,000 UNIT SPRAY TP ONE (21:58)
[2017-11-24] MEDS ORDERED: THROMBIN (BOVINE) 20,000 UNIT VIAL TP ONE (21:58)
[2017-11-24 22:05] LABS: INR 1.2 (0.83-1.16); PROTIME(PATIENT) 15.4 SEC (12.0-15.0)
[2017-11-24] MEDS ORDERED: ALBUMIN 5% 250 ML BOTTLE IV ONE (22:10)
--- NOTE | 2017-11-24 22:55 | POSTOPPROG ---
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
[2017-11-24] MEDS ORDERED: SUGAMMADEX SODIUM 200 MG/2 ML VIAL IVP ONE (23:04)
[2017-11-24] MEDS ORDERED: HYDROmorphONE/DILAUDID 6 MG/30 ML PCA IV PRN (23:11)
--- NOTE | 2017-11-24 23:39 | POSTANESTH ---
Post Anesthetic Evaluation Cardiovascular Status: Similar to Pre-Op Cond Respiratory Status: Similar to Pre-op Cond. Level of Consciousness/Mental Status: Alert and Oriented Pain Control: Adequate, Prn Tx Ordered Nausea/Vomiting Control: Adequate, Prn Tx Ordered Complications Possibly Related to Anesthesia: None Noted
[2017-11-24] MEDS: D5W 1/2 NS W/ 20 KCl/L 1,000 ML IV SCH (23:42)
[2017-11-25] MEDS: SENNOSIDES/DOCUSATE SODIUM TAB PO SCH ×2 (00:29→11:15)
[2017-11-25 05:10] LABS: PLATELET COUNT 294 10^3/uL (150-400)
[2017-11-25] MEDS: D5W 1/2 NS W/ 20 KCl/L 1,000 ML IV SCH ×2 (07:51→15:43)
[2017-11-25] MEDS: ERTAPENEM 1 GM VIAL IVP SCH (08:31)
[2017-11-25] MEDS ORDERED: D10W 1,000 ML IV PRN (10:31)
[2017-11-25 11:03] LABS: PLATELET COUNT 280 10^3/uL (150-400)
[2017-11-25 11:13] LABS: INR 1.2 (0.83-1.16); PROTIME(PATIENT) 15.4 SEC (12.0-15.0)
--- NOTE | 2017-11-25 11:52 | SOAPPROG ---
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 OK for sips and chips - starting PPI proph - hold heparin, maybe start proph SQ tomorrow - keep ICU 11/25/17 11:50 Subjective: doing well, pain controlled. Objective: Vital Signs Temp Pulse Resp BP Pulse Ox 36 C 103 H 14 107/76 100 11/25/17 10:00 11/25/17 10:00 11/25/17 10:00 11/25/17 10:00 11/25/17 10:00 Microbiology 11/24/17 20:30 Gram Stain - Final Other - Eswab 11/24/17 20:30 Mycobacterial Smear (SOLIS) - Final Other - Eswab Mycobacterial Culture - Final Laboratory Results 11/25/17 10:50 11/25/17 10:50 11/24/17 11/25/17 11/26/17 05:59 05:59 05:59 Intake Total 200 1667 Output Total 300 353 Balance -100 1314 PT 15.4 SEC (12.0-15.0) H 11/25/17 10:50 INR 1.20 (0.83-1.16) H 11/25/17 10:50 ICD10 Worksheet Patient Problems: Problems Problem Status Onset Anemia Acute Vertigo Acute
[2017-11-25] MEDS: PANTOPRAZOLE SODIUM 40 MG VIAL IVP SCH (12:04)
[2017-11-25] MEDS ORDERED: MAGNESIUM SULF 1 GM/DEXTROSE 100 ML IV ONE (15:30)
--- NOTE | 2017-11-25 16:27 | SOAPPROG ---
SOAP Progress Note Assessment/Plan: E&M abd mass * Large jejunal mass with perforation: POD #1. Awaiting path although preliminary could be GIST. * Anemia probably due to chronic blood loss +/- chronic disease: h/h stable; when taking PO can start oral iron. Hopefully removing the tumor will help some of this as well. * PE: when cleared by surgery, restart heparin Subjective: Patient sitting in chair. with patient. No acute complaints. Objective: Vital Signs Temp Pulse Resp BP Pulse Ox 36 C 87 15 105/57 L 100 11/25/17 10:00 11/25/17 15:02 11/25/17 15:02 11/25/17 15:02 11/25/17 15:02 Microbiology 11/24/17 20:30 Gram Stain - Final Other - Eswab 11/24/17 20:30 Mycobacterial Smear (SOLIS) - Final Other - Eswab Mycobacterial Culture - Final Laboratory Results 11/25/17 10:50 11/25/17 10:50 11/24/17 11/25/17 11/26/17 05:59 05:59 05:59 Intake Total 200 1667 Output Total 300 353 Balance -100 1314 PT 15.4 SEC (12.0-15.0) H 11/25/17 10:50 INR 1.20 (0.83-1.16) H 11/25/17 10:50 Physical Exam - Physical Exam General Appearance: no apparent distress Respiratory: lungs clear Cardiac/Chest: regular rate, rhythm Abdomen: soft, No normal bowel sounds ICD10 Worksheet Patient Problems: Problems Problem Status Onset Anemia Acute Vertigo Acute
--- NOTE | 2017-11-25 16:51 | PCMIDPN ---
Assessment/Plan: Assessment/Plan: * Contained bowel perforation/abscess related to large intra-abdominal tumor with small bowel involvement: Gram stain negative for organisms. White blood cell count decreased postoperatively. Given presence of perforation, continue ertapenem. Await cultures to further define antibiotic choice and duration. * Stool PCR positive for shiga like toxin producing E coli: No preceding diarrhea/bloody diarrhea. Suspect test results may represent false positive. No findings to suggest invasive gastroenteritis related to E coli or presence of H U.S.. Doubt this is of clinical significance. * History of Lyme disease and Babesiosis diagnosed by naturopathic methods: Plan standard Lyme testing once clinically stable. 11/25/17 16:47 Subjective: Patient status post laparotomy with findings of abdominal mass (suspicious for GIST) with jejunal perforation/abscess. Objective: Vital Signs Temp Pulse Resp BP Pulse Ox 36 C 87 15 105/57 L 100 11/25/17 10:00 11/25/17 15:02 11/25/17 15:02 11/25/17 15:02 11/25/17 15:02 Microbiology 11/24/17 20:30 Gram Stain - Final Other - Eswab 11/24/17 20:30 Mycobacterial Smear (SOLIS) - Final Other - Eswab Mycobacterial Culture - Final Laboratory Results 11/25/17 10:50 11/25/17 10:50 11/24/17 11/25/17 11/26/17 05:59 05:59 05:59 Intake Total 200 1667 Output Total 300 353 Balance -100 1314 ESR 57 MM/HR (0-30) H 11/24/17 03:26 C-Reactive Protein 169.6 mg/L (<10.0) H 11/24/17 03:26 Ertapenem # 4 Operative Gram stain 2+ white blood cells, no organisms seen, culture pending - Physical Exam General Appearance: alert, no apparent distress, non-toxic EENT: No thrush, No conjunctival petechiae Respiratory: lungs clear, No respiratory distress Cardiac/Chest: regular rate, rhythm Abdomen: tender (Diffusely), other (Midline incision dressed postoperatively) ICD10 Worksheet Patient Problems: Problems Problem Status Onset Anemia Acute Vertigo Acute
[2017-11-25] MEDS ORDERED: D5W 1/2 NS 1,000 ML IV SCH (17:00)
--- NOTE | 2017-11-25 17:46 | HOSPPROG ---
Hospitalist Progress Note Assessment/Plan: Assessment: 62-year-old female presents with a new diagnosis small-bowel mass ( suspected GIST) complicated by small bowel perforation Plan: 1. Small bowel mass, suspected GIST. POD#1, d/w Dr. Rosen, there were some small areas which were unresectable, so may need further consideration by Onc for systemic tx if patient chooses to pursue further aggressive care -IV and oral pain medications ordered, bowel regiment postoperatively, incentive spirometer -pathology is currently pending -onc/surg appreciated -sips/chips 2. Small bowel perforation. Acute, most likely present on admission, the area was identified during the upper endoscopy but was not the result of the procedure, the 2-3 cm perforation was most likely encased in the tumor outlined above and is most likely the result of the tumor growth -continue IV antibiotics (invanz per Dr. Gorman), no cx data to guide additional narrowing 3. Acute pulmonary embolism. Present on admission, identified by CT angiogram bilat lower lobes, most likely secondary to active malignancy -IV heparin drip off effie/postop, plan to restart ppx Hep SC tomorrow if no bleeding 4. Iron deficient anemia and acute blood loss anemia. Initially chronic w/ chronic inflammation/slow blood loss from tumor, status post 2 U of packed red blood cells, EBL from surgery 500-1000 w/ drop in Hgb to 9.8 from 11 -hold further transfusion -holding hep -monitor Hgb 5. Severe protein calorie malnutrition. Evidenced by low BMI of 16, evidence of proximal muscle wasting and general cachexia, most likely secondary to ongoing malignancy -get dietary consultation -Ensure supplements with meals once able to tolerate oral intake -TPN per Dr. Espinoza given anticipated protracted recovery of bowel 6. Urinary tract infection. Evidenced by active urinary symptoms on presentation, potentially positive urinalysis, urine cultures currently no growth -continue IV antibiotics, primarily being used for perforated small bowel above 7. 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 It is unclear what methods patient's natural path used to make this diagnosis, her laboratory tests are negative -I suspect that the patient's current malignant condition has been misinterpreted as a chronic infection by these organisms, which is recognized in the literature to not be an actual chronic infection but rather misdiagnosis -appreciate Infectious Disease assistance with suggesting confirmatory methods to rule out these infections 8. Pulmonary nodule. Present on CT (personally interpreted), unclear if e/o extrapulm disease of above Diet. Sips/Chips Prophylaxis. High risk patient, SCDs, holding heparin drip Code. Full Disposition. Anticipated discharge uncertain, patient remains severely ill with high level of medical complexity, high risk of worsening morbidity/ mortality, requiring further workup as outlined above. Subjective: pain w/ coughing, no flatus Objective: Vital Signs Temp Pulse Resp BP Pulse Ox 36.2 C 71 16 100/60 99 11/25/17 16:00 11/25/17 16:00 11/25/17 16:00 11/25/17 16:00 11/25/17 16:00 Microbiology 11/24/17 20:30 Gram Stain - Final Other - Eswab 11/24/17 20:30 Mycobacterial Smear (SOLIS) - Final Other - Eswab Mycobacterial Culture - Final Laboratory Results 11/25/17 10:50 11/25/17 10:50 11/24/17 11/25/17 11/26/17 05:59 05:59 05:59 Intake Total 200 1667 Output Total 300 353 Balance -100 1314 PT 15.4 SEC (12.0-15.0) H 11/25/17 10:50 INR 1.20 (0.83-1.16) H 11/25/17 10:50 - Physical Exam Constitutional: no apparent distress, chronically ill appearing, uncomfortable, No not in pain (mild) Cardiovascular: systolic murmur (II/ at apex), tachycardia, No irregularly irregular, No edema Respiratory: other (poor insp effort), No expiratory wheeze, No inspiratory crackles, No bronchial breath sounds, No respiratory distress Gastrointestinal: tenderness (diffusely throughout w/ mild depth palp), distension (mild), other (central incision), No normoactive bowel sounds ( hypoactive), No guarding Skin: other (no erythema around surg site), No abrasion, No induration, No fluctuance Neurologic: AAOx3, No facial droop Psychiatric: interacting appropriately, not anxious, not encephalopathic, thought process linear ICD10 Worksheet Patient Problems: Problems Problem Status Onset Vertigo Acute Anemia Acute
--- NOTE | 2017-11-25 18:12 | ASMTCMCOM ---
CM Note CM Note Notes: Per ICU rounds, pt s/p enteroscopy and colonoscopy, large mass seen, biopsies obtained. Surgery and oncology to consult. Pt may require additional surgery. NG tube in place. Discharge plan/needs remain to be determined at this time as they await pathology reports. CM will cont to follow. Current Discharge Plan: To be determined Date Signed: 11/25/2017 06:11 PM Electronically Signed By:Mary Kay Joseph RN
[2017-11-25] MEDS: TPN 1 EA BAG IV SCH (21:00)
--- NOTE | 2017-11-25 22:04 | GCON ---
[f rep st] CONSULTATION DATE OF CONSULTATION: 11/25/2017 HISTORY OF PRESENT ILLNESS: The patient is a 62-year-old female with long-standing abdominal mass. She has been followed by Dr. Jorge in the past, but has elected for nontraditional treatment. Rec ently, she is having a large amount of abdominal pain and significant weight loss of approximately 30 pounds. I was consulted when the patient was undergoing endoscopy, which demonstrated a perforation of the proximal jejunum. This perforation was quite large. However, there was no free air or free fluid in the abdomen, appeared to be perforated into a necrotic tumor. I was asked to consult for hel p with definitive therapy. CT scans revealed a large pelvic mass involving multiple loops of bowel w ith some question of compromise of the distal SMA artery, but no evidence of any real metastatic dise ase. PAST MEDICAL HISTORY: Possibility of Lyme disease and some IBS. She has had no previous abdominal s urgery. MEDICATIONS: None. ALLERGIES: Sulfa and penicillin. FAMILY HISTORY: Noncontributory. REVIEW OF SYSTEMS: No major problems on a full 10-point review of systems, except for the 30 pound w eight loss and abdominal pain. She has had no nausea or vomiting. She does not smoke. PHYSICAL EXAMINATION: GENERAL: An alert, but slightly uncomfortable 62-year-old female, who appears to have had recent weight loss. She is afebrile. HEENT: No adenopathy, no icterus, no oral lesion s. NECK: Supple, nontender. CHEST: Clear and symmetric. COR: Regular rhythm without murmurs. A BDOMEN: Soft, slightly distended with a large palpable mass in the suprapubic area in the lower abdo men just extending up to the umbilicus. There are no obvious hernias. EXTREMITIES: Full range of mo tion, full pulses. There is no swelling. PELVIC: Reveals the labia to be not inflamed, not edemato us. RECTAL: Exam was negative for masses. IMPRESSION: A giant abdominal mass involving the small bowel mesentery. Would favor possible gastro intestinal stromal tumor, but there is a possibility of lymphoma. Her lab tests do not suggest lymph zan with a normal LDH, however. Of course, she could have a sarcoma or an adenocarcinoma as well, bu t I would recommend laparotomy with attempt for resection, but at least for biopsy and possible resec tion of the perforated segment of jejunum if the whole tumor could not be removed. Risks and options have been fully discussed with the patient and her , who wished to proceed. /[id number]/MODL
--- NOTE | 2017-11-25 23:58 | GOP ---
[f rep st] OPERATIVE REPORT DATE OF OPERATION: SURGEON: Devin Rosen MD POP SINGER: Bertram Christian PA-C. ANESTHESIOLOGIST: PREOPERATIVE DIAGNOSIS: Giant pelvic mass with perforated jejunum. POSTOPERATIVE DIAGNOSIS: Giant pelvic mass with perforated jejunum, with gastrointestinal stromal tu mor. PROCEDURE PERFORMED: Patient was taken to the operating room where she received satisfactory general endotracheal anesthesia by , placed in supine position, and prepped and draped in usua l sterile fashion. Midline abdominal incision was made and carried carefully through the linea alba with the findings of a large fixed mass in the pelvis. Incision was opened carefully above the umbil icus and down to the pubis. The mass was then carefully teased and mobilized, freeing up any adhesio ns and delineating the bowel going in and out of the tumor. The colon was identified completely sepa rately from the tumor. The proximal jejunum came down, and it was adherent to the tumor, then turned around and left with several feet of small bowel being uninvolved. The bowel then returned to the t umor and was encased in this tumorous mass, almost resulting in an internal hernia. The bowel then l eft the tumor mass for 2 or 3 feet and returned again, and then the terminal ileum exited the mass an d was intact. All these loops of bowel were freed up away from the mass. The most difficult part wa s getting the mass off the anterior abdominal wall and the dome of the bladder. Mobilizing it there, we encountered an abscess. This was cultured and irrigated clear. The abscess appeared to be withi n the necrotic tumor. The tumor was dissected off the abdominal wall and off the dome of the bladder , however leaving a small area of tumor still in the dome of the bladder. Once it was totally free from the pelvis, the entire tumor and small bowel could be elevated up, and the retroperitoneum was completely freed. At that point, we were able to delineate the anatomy as de scribed above and determined that the tumor was resectable. We had to follow the course of the super ior mesenteric artery and be sure that we could preserve the blood flow. The proximal jejunum was di vided with a SARAY stapler and then its exit from the tumor was divided with a SARAY stapler. The termin al ileum was divided with a SARAY stapler. A segment of the tumor abutting the sigmoid colon was divid ed tangentially with a SARAY stapler. A second loop of small bowel entering the tumor was also divided with a SARAY stapler proximally and distally. That allowed the tumor to be completely isolated away f rom all other loops of bowel, and the Harmonic Scalpel was then used to slowly divide the mesentery, essentially skeletonizing along the course of the superior mesenteric artery but preserving the flow to the remaining segments of the bowel. This was slowly and carefully done until the mass could be r emoved from the abdominal cavity and sent to Pathology. It should be noted that biopsies from the abscess cavity had been sent out earlier and were consisten t with a GIST tumor. After the tumor was removed, the wound was copiously irrigated. Hemostasis was assured. There were some tumor fragments adherent to the dome of the bladder and it was not felt ap propriate to resect the bladder at this point with this extensive disease, but all tissue possible wa s removed from the anterior abdominal wall and the dome of the bladder, and what was remaining was ca uterized. Hemostasis was obtained with 3-0 Vicryl suture ligatures. So, the 1st anastomosis was cre ated approximately 1 foot into the jejunum. This was done in a [id number]-bwcl manner with a SARAY staple r by cross application of the SARAY stapler. Suture lines were reinforced with interrupted 3-0 silk wi th 3-0 Vicryl sutures, and the mesentery was closed with a running 3-0 Vicryl suture. A 2nd small madi wel anastomosis was made in a similar manner. A final small bowel anastomosis was then made to the r ight colon. It was felt that the blood supply to the cecum and the appendix area was somewhat tenuou s, so the anastomosis was made to the ascending portion of the colon, again in a [id number] manner with a SARAY stapler and a cross application of the stapler for closing the insertion sites. The conne cting mesentery was divided with the Harmonic Scalpel, and the cecum and appendix were removed as a s eparate specimen. Suture line was reinforced with 3-0 silk interrupted sutures. Attention was then turned to the area of the sigmoid colon. It was felt that that was a less than ad equate resection at that point, and the splenic flexure of the colon and the lateral reflection of th e descending colon and sigmoid colon were divided, decreasing the tension on the sigmoid colon. Then , a jgtt-uh-aoyc anastomosis was made with a SARAY stapler; cross application of the stapler was used t o resect short segment of the sigmoid colon that had previously been involved. That was removed, and that suture line, again, was reinforced in a similar manner with interrupted 3-0 silk sutures, the m esentery being closed with a running 3-0 Vicryl suture. The wound was then copiously irrigated with water to kill any remaining tumor floating cells in the area and then irrigated thoroughly with salin e, as well. Abdomen was then closed using a #1 PDS suture for the linea alba and skin monica for th e skin. performed a tap block for postoperative pain relief. She tolerated the proce dure well. She was taken to the recovery room in satisfactory condition. FINDINGS: Patient was found to have a volley-ball size mass in the pelvis involving multiple loops o f small bowel as well as a portion of the sigmoid colon. It was affixed to the anterior abdominal wa ll and the dome of the bladder in the pelvis, but no evidence of any metastatic disease. There were multiple cyst in the liver but no other separate masses. ESTIMATED BLOOD LOSS: Approximately 600 cc. There were no complications. She was taken to the recovery room in good condition. DESCRIPTION OF PROCEDURE: /[id number]/MODL
[2017-11-26 05:09] LABS: PLATELET COUNT 219 10^3/uL (150-400)
[2017-11-26 05:23] LABS: INR 1.1 (0.83-1.16); PROTIME(PATIENT) 14.4 SEC (12.0-15.0)
[2017-11-26] MEDS: SENNOSIDES/DOCUSATE SODIUM TAB PO SCH ×3 (05:28→21:00)
[2017-11-26] MEDS ORDERED: ALBUMIN 5% 500 ML IV ONE (07:55)
--- NOTE | 2017-11-26 09:36 | SOAPPROG ---
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 On TPN anticipating prolonged ileus. Final path pending - UOP has been marginal, will see how she responds to gentle fluid bolus. Has some pink tinge to it from tumor debulking off bladder, leave morfin at least 5 days 2/2 this - Hb stable, holding heparin at least until tomorrow and then will start SQ. Will wait at least another 2-3 days before restarting hep gtt given large surgery, blood loss and high risk for bleeding given large tumor debulking - Dispo: ok to Tx out of ICU, dc a-line. OOBTC, ambulate 11/25/17 11:50 11/26/17 09:33 Subjective: pain controlled, very worried she is going to hurt her abdominal sutures with activity Objective: Vital Signs Temp Pulse Resp BP Pulse Ox 35.6 C L 83 14 116/59 L 99 11/26/17 08:00 11/26/17 09:11 11/26/17 09:11 11/26/17 09:11 11/26/17 09:11 Microbiology 11/24/17 20:30 Gram Stain - Final Other - Eswab Laboratory Results 11/26/17 05:00 11/26/17 05:00 11/25/17 11/26/17 11/27/17 05:59 05:59 05:59 Intake Total 1667 2729 Output Total 353 600 Balance 1314 2129 PT 14.4 SEC (12.0-15.0) 11/26/17 05:00 INR 1.10 (0.83-1.16) 11/26/17 05:00 ICD10 Worksheet Patient Problems: Problems Problem Status Onset Anemia Acute Vertigo Acute
[2017-11-26] MEDS: PANTOPRAZOLE SODIUM 40 MG VIAL IVP SCH (10:10)
[2017-11-26] MEDS: ERTAPENEM 1 GM VIAL IVP SCH (10:10)
--- NOTE | 2017-11-26 10:36 | PCMIDPN ---
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 Preliminary suggestive of streptococcal species although Enterococcus also consideration. Given clinical improvement/debility, will continue with ertapenem pending formal identification. * Stool PCR positive for shiga like toxin producing E coli: See prior discussion. Doubt related to current clinical presentation or of ongoing clinical significance. * History of Lyme disease and Babesiosis diagnosed by naturopathic methods: Plan standard Lyme testing once clinically stable. 11/26/17 10:33 Subjective: Patient complains of postoperative abdominal pain. Overall however feels improved. Objective: Vital Signs Temp Pulse Resp BP Pulse Ox 35.6 C L 83 14 116/59 L 99 11/26/17 08:00 11/26/17 09:11 11/26/17 09:11 11/26/17 09:11 11/26/17 09:11 Microbiology 11/24/17 20:30 Gram Stain - Final Other - Eswab Laboratory Results 11/26/17 05:00 11/26/17 05:00 11/25/17 11/26/17 11/27/17 05:59 05:59 05:59 Intake Total 1667 2729 Output Total 353 600 Balance 1314 2129 ESR 57 MM/HR (0-30) H 11/24/17 03:26 C-Reactive Protein 169.6 mg/L (<10.0) H 11/24/17 03:26 Ertapenem # 5 Operative culture with growth of gram-positive cocci pending identification - Physical Exam General Appearance: alert, no apparent distress EENT: NG Tube, No thrush Respiratory: lungs clear (Anterolaterally), No respiratory distress Cardiac/Chest: regular rate, rhythm, systolic murmur (2/6 left upper sternal border) Abdomen: tender (Diffusely with postoperative dressing in place) Skin: rash (Facial rash without change) ICD10 Worksheet Patient Problems: Problems Problem Status Onset Anemia Acute Vertigo Acute
--- NOTE | 2017-11-26 13:28 | PDINTPN ---
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 On Invanz. WBC down. PE: Incidental on CT at admission. Anticoagulation currently held due to post- operative state. Lung nodule: Small, indeterminate. Anemia: H/H down a bit. Vertigo: Resolved. Plan: Check US legs. Hopefully resume anticoagulation tomorrow. Will need CT Chest in 6 months to F/U nodule. Follow H/H. 11/26/17 13:24 Subjective: Vertigo resolved, has some lightheadedness when sitting up/standing. Abdominal pain fairly well controlled. Objective: Vital Signs Temp Pulse Resp BP Pulse Ox 35.8 C L 80 17 119/64 98 11/26/17 10:00 11/26/17 11:24 11/26/17 11:24 11/26/17 11:24 11/26/17 11:24 Microbiology 11/24/17 20:30 Gram Stain - Final Other - Eswab Laboratory Results 11/26/17 05:00 11/26/17 05:00 11/25/17 11/26/17 11/27/17 05:59 05:59 05:59 Intake Total 1667 2729 500 Output Total 353 600 Balance 1314 2129 500 PT 14.4 SEC (12.0-15.0) 11/26/17 05:00 INR 1.10 (0.83-1.16) 11/26/17 05:00 Physical Exam - Physical Exam General Appearance: alert, no apparent distress EENT: normal ENT inspection Neck: normal inspection Respiratory: lungs clear, normal breath sounds Cardiac/Chest: normal peripheral pulses, regular rate, rhythm Abdomen: soft, No normal bowel sounds (absent), No non-tender (tender to soft palpation) Skin: normal color, warm/dry Extremities: normal inspection Neuro/Psych: alert, normal mood/affect, oriented x 3 ICD10 Worksheet Patient Problems: Problems Problem Status Onset Anemia Acute Vertigo Acute
--- NOTE | 2017-11-26 14:12 | GCON ---
[f rep st] CONSULTATION PULMONARY/CRITICAL CARE CONSULTATION DATE OF CONSULTATION: 11/25/2017 REFERRING PHYSICIAN: Rc Abrams MD REASON FOR REFERRAL: Evaluation and management of pulmonary embolism, lung nodule, and anemia, statu s post laparotomy. HISTORY: The patient is a 62-year-old woman with a longstanding history of abdominal mass. She was followed by Dr. Jorge, but has elected nontraditional treatment. She had been having increasing a bdominal pain and weight loss, which in conjunction with vertigo prompted hospital admission on . She was seen by Gastroenterology, who performed an endoscopy, which demonstrated an abdomina l perforation. She also had a CT scan of the chest, which showed pulmonary emboli and a small pulmon debbie nodule. She underwent a laparotomy, which demonstrated a perforated large GIST tumor involving m ultiple loops of small bowel, as well as an abscess. She went for extensive resection with a partial left sigmoid colectomy and partial right colectomy. There was some residual tumor. Estimated blood loss was 500 to 1000 cc. She currently reports that she has significant abdominal pain, but it is f airly well controlled. Her vertigo has resolved, but she does feel a bit lightheaded when she tries to stand. She denies shortness of breath, but does have abdominal pain with coughing. PAST MEDICAL HISTORY: Lyme disease and babesiosis, diagnosed by naturopaths. MEDICATIONS: At the time of admission: None. Here in the hospital, she is on ertapenem, meclizine, and pantoprazole. ALLERGIES: Penicillin and sulfa. 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 Denies smoking. FAMILY HISTORY: Family history is unremarkable. REVIEW OF SYSTEMS: A 10-point review of systems adds nothing to the history of present illness. PHYSICAL EXAMINATION: GENERAL: The patient is alert and oriented. She is somewhat uncomfortable du e to pain when she tries to move, but is comfortable at rest, albeit weak. VITAL SIGNS: Blood press ure is 100/60, with a heart rate of 71. She is afebrile. Oxygen saturations are 99% on room air. H EENT: Normocephalic and atraumatic. No icterus. NECK: No adenopathy. Trachea is midline. CHEST: She has decreased breath sounds in the bases. CARDIAC: Regular rate and rhythm without murmur. A BDOMEN: Flat and tender to light palpation. Bowel sounds are absent. EXTREMITIES: No clubbing, cy anosis, or edema. LABORATORY: A chemistry group is remarkable for a carbon dioxide of 19. The anion gap is 9. Glucos e is 179. An arterial blood gas yesterday shows a pH of 7.26, with a pO2 of 249, a CO2 of 50, and a bicarbonate of 22. A hemoglobin is 9.6, down from 11.3 at admission. Her MCV is 86.3. Her platelet count is 280. She has 25% bands, with a white blood count of 12.4. An INR is 1.2. Urinalysis show s greater than 50 red blood cells and greater than 50 white blood cells. serologies are n egative. HIV is negative. A CT scan of the chest shows small bilateral pulmonary emboli. There is a 4 mm nodule near the left lateral pleural surface. It is indeterminate. Images reviewed by me. ASSESSMENT: 1. Status post a for a large gastrointestinal stromal tumor. The patient is hemodynamica lly stable and is recovering as expected after the surgery. There was also apparently an abscess, an d she is being treated with ertapenem. 2. Pulmonary embolism. These are small in size and are unlikely to be causing significant hemodynam ic compromise. She is currently off anticoagulation due to her postoperative state. 3. Pulmonary nodule. This is small. The patient does not have a smoking history. This is likely b enign, although given her history of extensive GIST abdominal tumor should be followed. 4. Anemia. Her hemoglobin level has drifted down a bit since surgery as expected. RECOMMENDATIONS: 1. Check ultrasound of the lower extremities to ensure there are no significant DVTs. 2. Repeat CT scan of the chest in 6 months to follow a nodule. /[id number]/MODL
[2017-11-26] MEDS ORDERED: HEPARIN 10,000 UNIT/10 ML MDV (1,000 UNIT/ML) IVP PRN (15:15)
[2017-11-26] MEDS: HEPARIN/DEXTROSE 500 ML IV SCH (16:00)
--- NOTE | 2017-11-26 16:46 | HOSPPROG ---
Hospitalist Progress Note Assessment/Plan: Assessment: 62-year-old female presents with a new diagnosis small-bowel mass ( suspected GIST) complicated by small bowel perforation Plan: 1. Small bowel mass, suspected GIST. POD#2, small areas which were unresectable, so may need further consideration by Onc for systemic tx if patient chooses to pursue further aggressive care -IV and oral pain medications ordered, bowel regiment postoperatively, incentive spirometer -pathology is currently pending -onc/surg appreciated -sips/chips w/ NGT 2. Small bowel perforation. Acute, most likely present on admission, the area was identified during the upper endoscopy but was not the result of the procedure, the 2-3 cm perforation was most likely encased in the tumor outlined above and is most likely the result of the tumor growth -continue IV antibiotics (invanz per Dr. Gorman), no cx data to guide additional narrowing 3. Acute pulmonary embolism and DVT. Present on admission, identified by CT angiogram bilat lower lobes, most likely secondary to active malignancy, DVT noted on subsequent US but I suspect that this was the original source of PE and was therefore present prior to admission -d/w Dr. Dimitri Kelley, he recommends restarting hep gtt today and monitoring for bleeding 4. Iron deficient anemia and acute blood loss anemia. Initially chronic w/ chronic inflammation/slow blood loss from tumor, status post 2 U of packed red blood cells, EBL from surgery 500-1000 w/ drop in Hgb to 8 from 11 -hold further transfusion -monitor Hgb 5. Severe protein calorie malnutrition. Evidenced by low BMI of 16, evidence of proximal muscle wasting and general cachexia, most likely secondary to ongoing malignancy -get dietary consultation -Ensure supplements with meals once able to tolerate oral intake -TPN per Dr. Espinoza given anticipated protracted recovery of bowel -resulting in low albumin, low oncotic pressure, lower ext edema -counseled patient that she will naturese, getting one dose albumin today to increase intravascular return 6. Urinary tract infection. Evidenced by active urinary symptoms on presentation, potentially positive urinalysis, urine cultures currently no growth -continue IV antibiotics, primarily being used for perforated small bowel above 7. 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 It is unclear what methods patient's natural path used to make this diagnosis, her laboratory tests are negative -I suspect that the patient's current malignant condition has been misinterpreted as a chronic infection by these organisms, which is recognized in the literature to not be an actual chronic infection but rather misdiagnosis -appreciate Infectious Disease assistance with suggesting confirmatory methods to rule out these infections 8. Pulmonary nodule. Present on CT, unclear if e/o extrapulm disease of above Diet. Sips/Chips Prophylaxis. High risk patient, hep gtt Code. Full Disposition. Anticipated discharge uncertain, patient remains severely ill with high level of medical complexity, high risk of worsening morbidity/ mortality, requiring further workup as outlined above. Subjective: managing pain well, no BM, tolerating ice chips Objective: Vital Signs Temp Pulse Resp BP Pulse Ox 35.8 C L 92 18 130/75 H 97 11/26/17 10:00 11/26/17 14:00 11/26/17 14:00 11/26/17 14:00 11/26/17 14:00 Microbiology 11/24/17 20:30 Gram Stain - Final Other - Eswab Laboratory Results 11/26/17 05:00 11/25/17 11/26/17 11/27/17 05:59 05:59 05:59 Intake Total 1667 2729 500 Output Total 353 600 Balance 1314 2129 500 PT 14.4 SEC (12.0-15.0) 11/26/17 05:00 INR 1.10 (0.83-1.16) 11/26/17 05:00 - Physical Exam Constitutional: no apparent distress, not in pain, chronically ill appearing, uncomfortable Ears, Nose, Mouth, Throat: other (NGT in place) Cardiovascular: regular rate and rhythym, no murmur, rub, or gallop, edema ( trace bilat LE) Respiratory: reduced air movement (bilat bases), inspiratory crackles, No expiratory wheeze, No bronchial breath sounds Gastrointestinal: tenderness (mild to mod depth palpation), distension (mild), No normoactive bowel sounds (hypoactive bowel sounds), No guarding Skin: other (no erythema around surg site) Neurologic: AAOx3, sensation intact bilaterally, weakness (motor 4/5 bilat LE) Psychiatric: interacting appropriately, not anxious, not encephalopathic, thought process linear ICD10 Worksheet Patient Problems: Problems Problem Status Onset Vertigo Acute Anemia Acute
[2017-11-26 16:52] LABS: PLATELET COUNT 217 10^3/uL (150-400)
[2017-11-26 16:59] LABS: INR 1.03 (0.83-1.16); PROTIME(PATIENT) 13.7 SEC (12.0-15.0)
[2017-11-26] MEDS: TPN 1 EA BAG IV SCH (21:39)
[2017-11-26] MEDS: D5W 1/2 NS 1,000 ML IV SCH (23:10)
[2017-11-27 05:56] LABS: PLATELET COUNT 207 10^3/uL (150-400)
[2017-11-27 06:01] LABS: INR 1.16 (0.83-1.16)
[2017-11-27] MEDS ORDERED: D50W 25 GM/50 ML SYR IVP PRN (08:22)
[2017-11-27] MEDS ORDERED: PARAMETERS MISC PRN (08:22)
[2017-11-27] MEDS: ERTAPENEM 1 GM VIAL IVP SCH (10:09)
[2017-11-27] MEDS: PANTOPRAZOLE SODIUM 40 MG VIAL IVP SCH (10:11)
[2017-11-27] MEDS: SENNOSIDES/DOCUSATE SODIUM TAB PO SCH (10:13)
[2017-11-27] MEDS: PHENAZOPYRIDINE HCL 100 MG TAB PO SCH ×2 (10:14→19:38)
[2017-11-27] MEDS: INSULIN REGULAR, HUMAN 100 UNIT/1 ML VIAL STANDARD SC SCH ×4 (10:50→23:50)
--- NOTE | 2017-11-27 10:57 | PCMIDPN ---
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 Continue ertapenem as may have component of anaerobic contribution and with ongoing abdominal cramping may not tolerate addition of metronidazole as well. Anticipate 10-14 days of therapy postoperatively. * Stool PCR positive for shiga like toxin producing E coli: See prior discussion. Doubt related to current clinical presentation or of ongoing clinical significance. * History of Lyme disease and Babesiosis diagnosed by naturopathic methods: Will check Lyme antibody. 11/27/17 10:55 Subjective: Patient complains of short duration abdominal cramping after taking pain medications. Objective: Vital Signs Temp Pulse Resp BP Pulse Ox 35.9 C L 92 18 100/60 100 11/27/17 08:00 11/27/17 08:00 11/27/17 08:00 11/27/17 08:00 11/27/17 08:00 Microbiology 11/24/17 20:30 Gram Stain - Final Other - Eswab Laboratory Results 11/27/17 05:30 11/27/17 05:30 11/26/17 11/27/17 11/28/17 05:59 05:59 05:59 Intake Total 2729 3831 Output Total 600 3825 Balance 2129 6 ESR 57 MM/HR (0-30) H 11/24/17 03:26 C-Reactive Protein 169.6 mg/L (<10.0) H 11/24/17 03:26 Ertapenem # 6 Abdominal abscess cultures with growth of Streptococcus anginosus - Physical Exam General Appearance: alert, no apparent distress, non-toxic EENT: No scleral icterus, No conjunctival petechiae Respiratory: lungs clear (Anterolaterally), No respiratory distress Cardiac/Chest: regular rate, rhythm, systolic murmur (2/6 right upper sternal border) Extremities: pedal edema Abdomen: tender (Lucy-incisional) - Line/s other Lines: other (Right IJ triple-lumen catheter), No drainage, No erythema ICD10 Worksheet Patient Problems: Problems Problem Status Onset Anemia Acute Vertigo Acute
[2017-11-27] MEDS: POTASSIUM Cl (KCl) 20 MEQ in NS 50 ML IV SCH ×2 (11:33→13:30)
--- NOTE | 2017-11-27 12:38 | SOAPPROG ---
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 PE on admit, now documented DVTs. Acute post op blood loss anemia. H&H trending down. Consider pRBCs. D/w'ed Jeannine and she would like input from heme/onc. Discussed with Dr. Prakash. Ileus and multiple bowel resections. Continue NGT and TPN. HUMANITIES COORDINATOR for pain control. PE, DVT. Slow titration of heparin gtt (without bolus). Poor effort on IS. Decreased BSs at base, per IM. CXR today. Encourage deep breathing. Seen and discussed on ICU rounds today. S: pain controlled. Some dizziness. no N/V. no flatus. getting tired from sitting in chair. O: alert, nad, oob in chair mmm, ng in place ctab anteriorly, no w/r/r abd hypoactive BS 11/27/17 12:29 Objective: Vital Signs Temp Pulse Resp BP Pulse Ox 35.9 C L 92 18 100/60 100 11/27/17 08:00 11/27/17 08:00 11/27/17 08:00 11/27/17 08:00 11/27/17 08:00 Microbiology 11/24/17 20:30 Gram Stain - Final Other - Eswab Laboratory Results 11/27/17 05:30 11/27/17 05:30 11/26/17 11/27/17 11/28/17 05:59 05:59 05:59 Intake Total 0349 3831 Output Total 600 3825 Balance 2129 6 PT 15.0 SEC (12.0-15.0) 11/27/17 05:30 INR 1.16 (0.83-1.16) 11/27/17 05:30 ICD10 Worksheet Patient Problems: Problems Problem Status Onset Anemia Acute Vertigo Acute
--- NOTE | 2017-11-27 14:28 | PDINTPN ---
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 On Invanz. WBC down. Being followed by Infectious Disease as well as Oncology. PE: Incidental on CT at admission. Associated with bilateral deep venous thrombosis lower extremities. On full-dose heparin anticoagulation but in light of recent extensive surgery and anemia we are going slowly with this. Lung nodule: Small, indeterminate. She will need a a repeat CT scan of the chest in 6 months. She likely will be getting surveillance CT scans anyway per oncology. Anemia: Hematocrit 22, stable. Blood may be of benefit for her as she is quite weak. Nutrition: On TPN GI prophylaxis: On pantoprazole. Vertigo: Resolved. Weakness: Multifactorial. Plan: Continue antibiotics. Continue supportive care. Increase activity as tolerated. Continue heparin intravenously and increase drip rate until she is low therapeutic. Follow laboratory. 1 U of packed red blood cells is recommended but she would like to defer the order to Oncology. 35 min of critical care time spent directly with the patient. Discussed with the patient, surgery, nursing, and the ICU multi disciplinary team. Subjective: She feels very weak. Denies significant pain. She did ambulate in the halls with a walker and assistance earlier. Objective: Vital Signs Temp Pulse Resp BP Pulse Ox 36.4 C 93 17 123/75 H 99 11/27/17 12:44 11/27/17 12:44 11/27/17 12:44 11/27/17 12:44 11/27/17 12:44 Microbiology 11/24/17 20:30 Gram Stain - Final Other - Eswab Laboratory Results 11/27/17 05:30 11/27/17 05:30 11/26/17 11/27/17 11/28/17 05:59 05:59 05:59 Intake Total 2729 3831 Output Total 600 3825 Balance 2129 6 PT 15.0 SEC (12.0-15.0) 11/27/17 05:30 INR 1.16 (0.83-1.16) 11/27/17 05:30 Physical Exam - Physical Exam General Appearance: alert, no apparent distress, thin, other (Appears weak) EENT: PERRL/EOMI, other (Nasal cannula is in place. Nasogastric tube in place to suction) Neck: normal inspection Respiratory: lungs clear (Anteriorly), decreased breath sounds (At bases), No rhonchi, No wheezing Cardiac/Chest: regular rate, rhythm Abdomen: other (Postoperative changes present, bowel sounds are present.) Pelvic Exam: other (Croft catheter in place, good urine output) Skin: warm/dry, pallor Extremities: No pedal edema Neuro/Psych: no motor/sensory deficits, No cognition abnormalities ICD10 Worksheet Patient Problems: Problems Problem Status Onset Anemia Acute Vertigo Acute
[2017-11-27] MEDS: D5W 1/2 NS 1,000 ML IV SCH (18:08)
[2017-11-27] MEDS: HEPARIN/DEXTROSE 500 ML IV SCH (18:10)
--- NOTE | 2017-11-27 18:36 | HOSPPROG ---
Hospitalist Progress Note Assessment/Plan: Assessment: 62-year-old female presents with a new diagnosis small-bowel mass ( suspected GIST) complicated by small bowel perforation and post-op ileus Plan: 1. Small bowel mass, suspected GIST. POD#3, small areas which were unresectable, so may need further consideration by Onc for systemic tx if patient chooses to pursue further aggressive care -IV and oral pain medications ordered, bowel regiment postoperatively, incentive spirometer -pathology is currently pending -onc/surg appreciated -sips/chips w/ NGT 2. Small bowel perforation. Acute, most likely present on admission, the area was identified during the upper endoscopy but was not the result of the procedure, the 2-3 cm perforation was most likely encased in the tumor outlined above and is most likely the result of the tumor growth -continue IV antibiotics (invanz per Dr. Gorman), no cx data to guide additional narrowing, so will likely require full course of invanz 3. Acute pulmonary embolism and DVT. Present on admission, identified by CT angiogram bilat lower lobes, most likely secondary to active malignancy, DVT noted on subsequent US but I suspect that this was the original source of PE and was therefore present prior to admission -restarted hep gtt 11/26 w/o bleeding, continue 4. Iron deficient anemia and acute blood loss anemia. Initially chronic w/ chronic inflammation/slow blood loss from tumor, status post 2 U of packed red blood cells pre-op, EBL from surgery 500-1000 w/ drop in Hgb to 7.4 from 11 -recommended transfusion w/ lasix, patient considering and awaiting recommendation from Onc -monitor Hgb 5. Severe protein calorie malnutrition. Evidenced by low BMI of 16, evidence of proximal muscle wasting and general cachexia, most likely secondary to ongoing malignancy -get dietary consultation -Ensure supplements with meals once able to tolerate oral intake -TPN per Dr. Espinoza given anticipated protracted recovery of bowel -resulting in low albumin (1.9) and pre-albumin (6.4), low oncotic pressure, lower ext edema 6. Urinary tract infection. Evidenced by active urinary symptoms on presentation, potentially positive urinalysis, urine cultures currently no growth -continue IV antibiotics, primarily being used for perforated small bowel above 7. 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 It is unclear what methods patient's natural path used to make this diagnosis, her laboratory tests are negative -I suspect that the patient's current malignant condition has been misinterpreted as a chronic infection by these organisms, which is recognized in the literature to not be an actual chronic infection but rather misdiagnosis -appreciate Infectious Disease assistance with suggesting confirmatory methods to rule out these infections 8. Pulmonary nodule. Present on CT, unclear if e/o extrapulm disease of above, outpt CT per Dr. Palma 9. Pleural effusion. Acute, 2/2 volume, increasing on left side per CXR ( personally interpreted) -not resulting in hypoxia (yet), patient is actively naturesing, so she wants to hold off on lasix, can be used PRN 10. Post-op ileus. No BMs as yet, large bowel surg, anticipate protracted recovery, per surg remain sips/chips only w/ ongoing NGT -check NGT placement w/ CXR, adjust PRN Diet. Sips/Chips Prophylaxis. High risk patient, hep gtt Code. Full Disposition. Anticipated discharge uncertain, patient remains severely ill with high level of medical complexity, high risk of worsening morbidity/ mortality, requiring further workup as outlined above. Subjective: patient w/ polyuria, edema and weighty legs Objective: Vital Signs Temp Pulse Resp BP Pulse Ox 36.5 C 103 H 14 126/79 H 98 11/27/17 16:06 11/27/17 16:06 11/27/17 16:06 11/27/17 16:06 11/27/17 16:06 Microbiology 11/24/17 20:30 Gram Stain - Final Other - Eswab Laboratory Results 11/27/17 05:30 11/27/17 05:30 11/26/17 11/27/17 11/28/17 05:59 05:59 05:59 Intake Total 2729 3831 1490 Output Total 600 3825 1350 Balance 2129 6 140 PT 15.0 SEC (12.0-15.0) 11/27/17 05:30 INR 1.16 (0.83-1.16) 11/27/17 05:30 - Physical Exam Constitutional: no apparent distress, not in pain, chronically ill appearing, uncomfortable Cardiovascular: systolic murmur (I/ at apex), tachycardia, edema (trace bilat LE), No irregularly irregular Respiratory: reduced air movement (left base laterally), No expiratory wheeze, No inspiratory crackles, No bronchial breath sounds, No respiratory distress Gastrointestinal: tenderness (mild to mod depth palpation), distension (mild), No normoactive bowel sounds (hypoactive bowel sounds), No guarding Skin: other (no induration/ecchymoses/erythema/fluctuance at incision site) Neurologic: AAOx3, No weakness Psychiatric: not encephalopathic, anxious, flat affect, No agitated ICD10 Worksheet Patient Problems: Problems Problem Status Onset Vertigo Acute Anemia Acute
[2017-11-27] MEDS: TPN 1 EA BAG IV SCH (22:09)
[2017-11-28 05:31] LABS: PLATELET COUNT 193 10^3/uL (150-400)
[2017-11-28 05:42] LABS: INR 1.03 (0.83-1.16); PROTIME(PATIENT) 13.7 SEC (12.0-15.0)
[2017-11-28] MEDS: INSULIN REGULAR, HUMAN 100 UNIT/1 ML VIAL STANDARD SC SCH ×3 (06:02→18:33)
[2017-11-28] MEDS: PANTOPRAZOLE SODIUM 40 MG VIAL IVP SCH (08:39)
[2017-11-28] MEDS: ERTAPENEM 1 GM VIAL IVP SCH (08:39)
--- NOTE | 2017-11-28 10:25 | PCMIDPN ---
Assessment/Plan: Assessment/Plan: 1. 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 -Abdominal cultures with STrep anginosus and Anaerobic GPR. -currenlty on invanz - wbc has improved since admit -afebrile - Reviewed labs/cultures with pateint. REviewed plan of care with patient. - PLan for at least 10-14 days of atbx - care coordinated with CARLITOS. Jayden invanz 1g daily- 11/22/17 Subjective: Afebrile. Sitting in chair. has abdominal pain. Having difficulty with pain meds as she feels it is causing her nausea. Has not had BM yet. on TPN. NGT in place. Denies sob. Objective: Vital Signs Temp Pulse Resp BP Pulse Ox 36.6 C 90 14 134/81 H 97 11/28/17 07:45 11/28/17 07:45 11/28/17 07:45 11/28/17 07:45 11/28/17 07:45 Microbiology 11/24/17 20:30 Gram Stain - Final Other - Eswab Laboratory Results 11/28/17 05:15 11/28/17 05:15 11/27/17 11/28/17 11/29/17 05:59 05:59 05:59 Intake Total 3831 2890 Output Total 3825 3850 Balance 6 -960 ESR 57 MM/HR (0-30) H 11/24/17 03:26 C-Reactive Protein 169.6 mg/L (<10.0) H 11/24/17 03:26 - Physical Exam General Appearance: alert, no apparent distress Respiratory: lungs clear Cardiac/Chest: regular rate, rhythm Extremities: No swelling Abdomen: soft, distended, tender, other (midline abdomen dressing noted. ) Skin: No erythema ICD10 Worksheet Patient Problems: Problems Problem Status Onset Anemia Acute Vertigo Acute
--- NOTE | 2017-11-28 10:46 | PDINTPN ---
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 On Invanz. WBC down. Being followed by Infectious Disease as well as Oncology. PE: Incidental on CT at admission. Associated with bilateral deep venous thrombosis lower extremities. On full-dose heparin anticoagulation but in light of recent extensive surgery and anemia we are going slowly with this. Unfractionated heparin coming up. Lung nodule: Small, indeterminate. She will need a a repeat CT scan of the chest in 6 months. She likely will be getting surveillance CT scans anyway per oncology. Anemia: Hematocrit 23, stable. Consider transfusion of 1 U of packed cells. Nutrition: On TPN GI prophylaxis: On pantoprazole. Vertigo: Resolved. Weakness: Multifactorial. Plan: Continue antibiotics. Continue supportive care. Increase activity as tolerated. Continue heparin intravenously aiming for low therapeutic unfractionated heparin levels. Follow laboratory, H/H. Can transfer to medical -surgical bed/status today. 25 min of critical care time spent directly with the patient. Discussed with the patient, hospitalist, nursing, and the ICU multi disciplinary team. Subjective: No specific complaints this a.m.. Was up in the chair earlier, now back in bed. Some abdominal discomfort. No gas. Objective: Vital Signs Temp Pulse Resp BP Pulse Ox 36.6 C 90 14 134/81 H 97 11/28/17 07:45 11/28/17 07:45 11/28/17 07:45 11/28/17 07:45 11/28/17 07:45 Microbiology 11/24/17 20:30 Gram Stain - Final Other - Eswab Laboratory Results 11/28/17 05:15 11/28/17 05:15 11/27/17 11/28/17 11/29/17 05:59 05:59 05:59 Intake Total 3831 2890 Output Total 3825 3850 Balance 6 -960 PT 13.7 SEC (12.0-15.0) 11/28/17 05:15 INR 1.03 (0.83-1.16) 11/28/17 05:15 CXR yesterday: Basilar atelectasis on the left with probable small effusion. Otherwise clear. Physical Exam - Physical Exam General Appearance: alert, no apparent distress, thin EENT: other (Nasogastric tube in place to suction) Neck: normal inspection Respiratory: lungs clear (Anteriorly), decreased breath sounds (At bases, no rales, no rhonchi) Cardiac/Chest: regular rate, rhythm Abdomen: distended, No normal bowel sounds (No bowel sounds), No non-tender ( Postoperative tenderness), No soft Pelvic Exam: other (Croft catheter in place, good urine output) Skin: warm/dry, pallor Extremities: No pedal edema Neuro/Psych: no motor/sensory deficits, No cognition abnormalities ICD10 Worksheet Patient Problems: Problems Problem Status Onset Anemia Acute Vertigo Acute
[2017-11-28] MEDS: HEPARIN/DEXTROSE 500 ML IV SCH (12:16)
[2017-11-28] MEDS ORDERED: KETOROLAC 15 MG/1 ML SDV IVP PRN (13:02)
--- NOTE | 2017-11-28 14:07 | HOSPPROG ---
Hospitalist Progress Note Assessment/Plan: 62-year-old female presents with a new diagnosis small-bowel mass (suspected GIST) complicated by small bowel perforation and post-op ileus 1. Small bowel mass, suspected GIST. POD#4, small areas which were unresectable, so may need further consideration by Onc for systemic tx if patient chooses to pursue further aggressive care -IV and oral pain medications ordered, bowel regiment postoperatively, incentive spirometer -pathology is currently pending -onc/surg appreciated -sips/chips w/ NGT 2. Small bowel perforation. Acute, most likely present on admission, the area was identified during the upper endoscopy but was not the result of the procedure, the 2-3 cm perforation was most likely encased in the tumor outlined above and is most likely the result of the tumor growth -continue IV antibiotics (invanz per Dr. Gorman), no cx data to guide additional narrowing, so will likely require full course of invanz 3. Acute pulmonary embolism and DVT. Present on admission, identified by CT angiogram bilat lower lobes, most likely secondary to active malignancy, DVT noted on subsequent US but I suspect that this was the original source of PE and was therefore present prior to admission -continue heparin gtt and consider to transitioning to LMWH soon 4. Iron deficient anemia and acute blood loss anemia. Initially chronic w/ chronic inflammation/slow blood loss from tumor, status post 2 U of packed red blood cells pre-op, EBL from surgery 500-1000 w/ drop in Hgb to 7.4 from 11 -monitor Hgb -consider transfusion for hbg<7 5. Severe protein calorie malnutrition. Evidenced by low BMI of 16, evidence of proximal muscle wasting and general cachexia, most likely secondary to ongoing malignancy -get dietary consultation -Ensure supplements with meals once able to tolerate oral intake -TPN per Dr. Espinoza given anticipated protracted recovery of bowel -resulting in low albumin (1.9) and pre-albumin (6.4), low oncotic pressure, lower ext edema 6. Urinary tract infection. Evidenced by active urinary symptoms on presentation, potentially positive urinalysis, urine cultures currently no growth -continue IV antibiotics, primarily being used for perforated small bowel above 7. 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 It is unclear what methods patient's natural path used to make this diagnosis, her laboratory tests are negative -I suspect that the patient's current malignant condition has been misinterpreted as a chronic infection by these organisms, which is recognized in the literature to not be an actual chronic infection but rather misdiagnosis -appreciate Infectious Disease assistance with suggesting confirmatory methods to rule out these infections 8. Pulmonary nodule. Present on CT, unclear if e/o extrapulm disease of above, outpt CT per Dr. Palma 9. Pleural effusion. Acute, 2/2 volume, increasing on left side per CXR ( personally interpreted) -not resulting in hypoxia (yet), patient is actively naturesing, so she wants to hold off on lasix, can be used PRN 10. Post-op ileus. No BMs as yet, large bowel surg, anticipate protracted recovery, per surg remain sips/chips only w/ ongoing NGT -dc apartment coordinator Diet. Sips/Chips Prophylaxis. High risk patient, hep gtt Code. Full Disposition. Anticipated discharge uncertain, patient remains severely ill with high level of medical complexity, high risk of worsening morbidity/ mortality, requiring further workup as outlined above. Will transfer to med/ surg status Subjective: no flatus. has intermittent abd pain. apartment coordinator not helping. still npo. getting out of chair Objective: Vital Signs Temp Pulse Resp BP Pulse Ox 36.9 C 106 H 11 L 121/79 H 98 11/28/17 11:57 11/28/17 11:57 11/28/17 11:57 11/28/17 11:57 11/28/17 11:57 Microbiology 11/24/17 20:30 Gram Stain - Final Other - Eswab Laboratory Results 11/28/17 05:15 11/28/17 05:15 11/27/17 11/28/17 11/29/17 05:59 05:59 05:59 Intake Total 3831 2890 Output Total 3825 3850 600 Balance 6 -960 -600 PT 13.7 SEC (12.0-15.0) 11/28/17 05:15 INR 1.03 (0.83-1.16) 11/28/17 05:15 gen nad ngt in place abd soft distended hypoactive bowel sounds ext no edema ICD10 Worksheet Patient Problems: Problems Problem Status Onset Vertigo Acute Anemia Acute
--- NOTE | 2017-11-28 14:16 | SOAPPROG ---
SOAP Progress Note Assessment/Plan: Assessment: 1.) Presumed GI Stomal Tumor- S/P emergent resection- now post-op awaiting full pathology report. Perforation at tumor mass noted, with antibiotics aimed at polymicrobial peritonitis/sepsis being treated. 2.) Anemia- multifactorial- related to underlying malignancy (presumptive) and GI blood loss at erosion of gut wall and post-op. Agree with blood product support and judicious anticoagulation 3.) Incidental PE- see above. Plan: 1.) Await Path report from surgical resection. If this is GIST, would advise medical therapy with Imatinib ( Gleevec), an oral agent , when sufficiently recovered, following discharge, as outpatient. Our service will follow as inpatient and outpatient. 11/28/17 14:07 Subjective: Pt soundly asleep, at 2 PM when I came by to assess patient Objective: VSS noted here. Pt has remained afebrile Pt not examined, given that she was comfortably soundly asleep. Vital Signs Temp Pulse Resp BP Pulse Ox 36.9 C 106 H 11 L 121/79 H 98 11/28/17 11:57 11/28/17 11:57 11/28/17 11:57 11/28/17 11:57 11/28/17 11:57 Microbiology 11/24/17 20:30 Gram Stain - Final Other - Eswab Laboratory Results 11/28/17 05:15 11/28/17 05:15 11/27/17 11/28/17 11/29/17 05:59 05:59 05:59 Intake Total 3831 2890 Output Total 3825 3850 600 Balance 6 -960 -600 PT 13.7 SEC (12.0-15.0) 11/28/17 05:15 INR 1.03 (0.83-1.16) 11/28/17 05:15 ICD10 Worksheet Patient Problems: Problems Problem Status Onset Anemia Acute Vertigo Acute
--- NOTE | 2017-11-28 14:26 | SOAPPROG ---
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 PE on admit, now documented DVTs. Overall doing well with slow steady progress after big surgery. Acute post op blood loss anemia. H&H stable. No transfusion given. Continue to monitor, especially in light of heparin and potentially toradol. Ileus and multiple bowel resections. Continue NGT and TPN. Getting insulin as needed. 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 Added toradol PRN--pt hesitant to use this 2/2 hx of gastric irritation with NSAIDS. We had a long conversation about it. PE, DVT. Slow titration of heparin gtt (without bolus). Level rising. Poor effort on IS. Encourage deep breathing. Appreciated yesterday's CXR. IV abx per ID. +purulence associated with necrotic tumor. D/w airport operations specialist. Patient stable and ok for txr to med surg status. Also, ok to have acupuncture if desired. Patient assumes tiny risk while on blood thinners. 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 S: thinks she had cramps from dilaudid and not sure morphine is helping. No flatus. Has walked. Is OOB in chair. O: alert, nad, oob in chair mmm, ng in place ctab anteriorly, no w/r/r abd hypoactive BS, inc well dressed with silver dressing 11/28/17 14:26 Objective: Vital Signs Temp Pulse Resp BP Pulse Ox 36.9 C 106 H 11 L 121/79 H 98 11/28/17 11:57 11/28/17 11:57 11/28/17 11:57 11/28/17 11:57 11/28/17 11:57 Microbiology 11/24/17 20:30 Gram Stain - Final Other - Eswab Laboratory Results 11/28/17 05:15 11/28/17 05:15 11/27/17 11/28/17 11/29/17 05:59 05:59 05:59 Intake Total 3831 2890 Output Total 3825 3850 600 Balance 6 -960 -600 PT 13.7 SEC (12.0-15.0) 11/28/17 05:15 INR 1.03 (0.83-1.16) 11/28/17 05:15 ICD10 Worksheet Patient Problems: Problems Problem Status Onset Anemia Acute Vertigo Acute
--- NOTE | 2017-11-28 16:22 | ASMTCMCOM ---
CM Note CM Note Notes: Therapies recommending SNF at this time. Still very sick, up with walker. Date Signed: 11/28/2017 04:22 PM Electronically Signed By:Marialuisa Nowak LCSW
[2017-11-28] MEDS ORDERED: KETOROLAC 15 MG/1 ML SDV IVP SCH (18:00)
[2017-11-28] MEDS: TPN W/ FAMOTIDINE 1 EA BAG IV SCH (21:05)
[2017-11-29] MEDS: INSULIN REGULAR, HUMAN 100 UNIT/1 ML VIAL STANDARD SC SCH ×2 (00:53→06:27)
[2017-11-29] MEDS: ERTAPENEM 1 GM VIAL IVP SCH (09:33)
[2017-11-29] MEDS: INSULIN REGULAR HUMAN 100 UNIT/ML UNIT SC SCH ×3 (12:08→23:55)
--- NOTE | 2017-11-29 13:33 | HOSPPROG ---
Hospitalist Progress Note Assessment/Plan: 62-year-old female presents with a new diagnosis small-bowel mass (suspected GIST) complicated by small bowel perforation and post-op ileus new to my care on 11/28/2017 #. Acute pulmonary embolism and DVT. Present on admission, identified by CT angiogram bilat lower lobes, most likely secondary to active malignancy, DVT noted on subsequent US but I suspect that this was the original source of PE and was therefore present prior to admission -heparin is currently on hold see below # acute on chronic iron deficiency anemia with suspected acute blood loss -will transfuse 2 U of packed red blood cells today and closely monitor H&H. I discussed the situation with General surgery who will closely monitor. The surgery team did not feel like a CT was needed at this time. #. Small bowel mass, suspected GIST. POD#5, small areas which were unresectable, so may need further consideration by Onc for systemic tx if patient chooses to pursue further aggressive care -IV and oral pain medications ordered, bowel regiment postoperatively, incentive spirometer -pathology is consistent with GIST -onc/surg appreciated -sips/chips w/ NGT #. Small bowel perforation. Acute, most likely present on admission, the area was identified during the upper endoscopy but was not the result of the procedure, the 2-3 cm perforation was most likely encased in the tumor outlined above and is most likely the result of the tumor growth -continue IV antibiotics (invanz per Dr. Gorman), no cx data to guide additional narrowing, so will likely require full course of invanz 5. Severe protein calorie malnutrition. Evidenced by low BMI of 16, evidence of proximal muscle wasting and general cachexia, most likely secondary to ongoing malignancy -get dietary consultation -Ensure supplements with meals once able to tolerate oral intake -TPN per Dr. Espinoza given anticipated protracted recovery of bowel -resulting in low albumin (1.9) and pre-albumin (6.4), low oncotic pressure, lower ext edema 6. Urinary tract infection. Evidenced by active urinary symptoms on presentation, potentially positive urinalysis, urine cultures currently no growth -continue IV antibiotics, primarily being used for perforated small bowel above 7. 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 It is unclear what methods patient's natural path used to make this diagnosis, her laboratory tests are negative -I suspect that the patient's current malignant condition has been misinterpreted as a chronic infection by these organisms, which is recognized in the literature to not be an actual chronic infection but rather misdiagnosis -appreciate Infectious Disease assistance with suggesting confirmatory methods to rule out these infections 8. Pulmonary nodule. Present on CT, unclear if e/o extrapulm disease of above, outpt CT per Dr. Palma 9. Pleural effusion. Acute, 2/2 volume, increasing on left side per CXR ( personally interpreted) -not resulting in hypoxia (yet), patient is actively naturesing, so she wants to hold off on lasix, can be used PRN 10. Post-op ileus. No BMs as yet, large bowel surg, anticipate protracted recovery, per surg remain sips/chips only w/ ongoing NGT -dc bow maker custom Diet. Sips/Chips Prophylaxis. High risk patient, hep gtt Code. Full Disposition. Anticipated discharge uncertain, patient remains severely ill with high level of medical complexity, high risk of worsening morbidity/ mortality, requiring further workup as outlined above. Subjective: She denies any active bleeding. She continues to have some abdominal distention and bloating. She denies any flatus. She still NPO status. Objective: Vital Signs Temp Pulse Resp BP Pulse Ox 36.5 C 101 H 16 103/73 99 11/29/17 12:00 11/29/17 12:00 11/29/17 12:00 11/29/17 12:00 11/29/17 12:00 Microbiology 11/24/17 20:30 Gram Stain - Final Other - Eswab Laboratory Results 11/29/17 06:00 11/29/17 06:00 11/28/17 11/29/17 11/30/17 05:59 05:59 05:59 Intake Total 2890 7 Output Total 3850 2000 Balance -960 57 PT 13.7 SEC (12.0-15.0) 11/28/17 05:15 INR 1.03 (0.83-1.16) 11/28/17 05:15 - Physical Exam Constitutional: no apparent distress, appears nourished, not in pain Cardiovascular: regular rate and rhythym, no murmur, rub, or gallop Respiratory: no respiratory distress, no rales or rhonchi, clear to auscultation Gastrointestinal: tenderness, distension, other (Hypoactive bowel sounds), No guarding, No rebound Neurologic: AAOx3, sensation intact bilaterally, CN II-XII Intact, No facial droop ICD10 Worksheet Patient Problems: Problems Problem Status Onset Vertigo Acute Anemia Acute
--- NOTE | 2017-11-29 13:35 | SOAPPROG ---
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 PE on admit, now documented DVTs. H&H down today. pRBCs ordered--has antibodies. Awaiting blood. Heparin gtt held. Suspect oozing with rising unfractionated heparin level. Pt afebrile. Still, question of melena (I viewed stool, not bing blood) and decreased bowel sounds today. Discussed with Dr. Lopez who also saw patient. Will hold off on idea of CT scan today. Reconsider tomorrow or if increased pain, fever, distention, bleeding. Continue NGT and TPN. Getting insulin as needed. IV abx per ID. +purulence associated with necrotic tumor. S: very tired today. no flatus. no n/v. dark liquid stool. O: somnolent but easily arousable and appropriate mmm, ng in place ctab anteriorly, no w/r/r abd no bowel sounds, inc well dressed with silver dressing, softly bloated-- difficult for me to tell if this is increased since the last two days I've seen patient she was sitting oob in chair and is now in bed. 11/29/17 13:27 Objective: Vital Signs Temp Pulse Resp BP Pulse Ox 36.5 C 101 H 16 103/73 99 11/29/17 12:00 11/29/17 12:00 11/29/17 12:00 11/29/17 12:00 11/29/17 12:00 Microbiology 11/24/17 20:30 Gram Stain - Final Other - Eswab Laboratory Results 11/29/17 06:00 11/29/17 06:00 11/28/17 11/29/17 11/30/17 05:59 05:59 05:59 Intake Total 2890 7 Output Total 3850 2000 Balance -960 57 PT 13.7 SEC (12.0-15.0) 11/28/17 05:15 INR 1.03 (0.83-1.16) 11/28/17 05:15 ICD10 Worksheet Patient Problems: Problems Problem Status Onset Anemia Acute Vertigo Acute
--- NOTE | 2017-11-29 14:35 | SOAPPROG ---
SOAP Progress Note Assessment/Plan: Assessment: 1.) GI Stomal Tumor- S/P emergent resection- now post-op , day 4. Perforation at tumor mass noted, with antibiotics aimed at polymicrobial peritonitis/sepsis being treated. 2.) Anemia- multifactorial- related to underlying malignancy (presumptive) and GI blood loss at erosion of gut wall and post-op. Agree with blood product support, which patient is now accepting. Melena noted. Will need to withhold AC in face of Melanotic output. 3.) Incidental PE/ DVT. Hemodynamically stable, with compromised Tx given extent of GIB. 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 Her primary Oncologist in our group, Dr. Jorge is aware of surgery/findings. Our service will follow as inpatient and outpatient. Agree with blood product support, which will be continued. Hold full dose AC. 11/29/17 14:38 Subjective: Fairly exhausted , but having no pain. Objective: In NAD, flat in bed, with low flow O2. HEENT- NGT in place, pale, anicteric, no oral lesions Neck- supple, no JVD Chest- clear breath sounds anteriorly CVS- RR, S1S2 normal ABD- moderately distended, BS barely (+), EXT- w/out edema, warm well perfused Labs- Hgb 6.1 BUN/Cr 15/0.51 Blood Cx: S. Sanginosis Path report noted: GIST, G2 with high mitotic index. Soft Tissue margin (+) on path specimen. Vital Signs Temp Pulse Resp BP Pulse Ox 36.5 C 101 H 16 103/73 99 11/29/17 12:00 11/29/17 12:00 11/29/17 12:00 11/29/17 12:00 11/29/17 12:00 Microbiology 11/24/17 20:30 Gram Stain - Final Other - Eswab Laboratory Results 11/29/17 06:00 11/29/17 06:00 11/28/17 11/29/17 11/30/17 05:59 05:59 05:59 Intake Total 2890 2057 Output Total 3850 2000 Balance -960 57 PT 13.7 SEC (12.0-15.0) 11/28/17 05:15 INR 1.03 (0.83-1.16) 11/28/17 05:15 ICD10 Worksheet Patient Problems: Problems Problem Status Onset Anemia Acute Vertigo Acute
--- NOTE | 2017-11-29 18:01 | PCMIDPN ---
Assessment/Plan: Assessment/Plan: * Contained bowel perforation/abscess related to large intra-abdominal tumor with small bowel involvement: Cultures with growth of Streptococcus anginosus and anaerobic gram-negative jessica. Continue ertapenem which will cover both organisms. Patient with history of hives to penicillin so will not change to ceftriaxone and metronidazole given tolerating ertapenem well. Plan 10 days of therapy postoperatively which will make stop date 12/04/17. * Stool PCR positive for shiga like toxin producing E coli: See prior discussion. Doubt related to current clinical presentation or of ongoing clinical significance. * History of Lyme disease and Babesiosis diagnosed by naturopathic methods: Lyme antibody is negative. This was discussed with patient today. 11/29/17 17:59 Subjective: Patient complains of abdominal pain. Objective: Vital Signs Temp Pulse Resp BP Pulse Ox 36.6 C 84 12 128/88 H 99 11/29/17 16:00 11/29/17 16:00 11/29/17 16:00 11/29/17 16:00 11/29/17 16:00 Microbiology 11/24/17 20:30 Gram Stain - Final Other - Eswab Laboratory Results 11/29/17 06:00 11/29/17 06:00 11/28/17 11/29/17 11/30/17 05:59 05:59 05:59 Intake Total 2890 2057 1000 Output Total 3850 2000 Balance -840 86 1422 ESR 57 MM/HR (0-30) H 11/24/17 03:26 C-Reactive Protein 169.6 mg/L (<10.0) H 11/24/17 03:26 Ertapenem # 8 (stop date 12/04/2017) Abdominal abscess cultures with growth of Streptococcus anginosus and anaerobic gram-negative jessica - Physical Exam General Appearance: alert, no apparent distress EENT: other (Facial rash less prominent), No scleral icterus Cardiac/Chest: regular rate, rhythm Abdomen: tender (Diffusely), No distended - Line/s other Lines: other (Right IJ triple-lumen catheter), No drainage, No erythema ICD10 Worksheet Patient Problems: Problems Problem Status Onset Anemia Acute Vertigo Acute
[2017-11-29] MEDS: TPN W/ FAMOTIDINE 1 EA BAG IV SCH (21:20)
[2017-11-30] MEDS: INSULIN REGULAR HUMAN 100 UNIT/ML UNIT SC SCH ×4 (05:27→18:33)
[2017-11-30 06:22] LABS: PLATELET COUNT 232 10^3/uL (150-400)
[2017-11-30] MEDS: ERTAPENEM 1 GM VIAL IVP SCH (09:46)
--- NOTE | 2017-11-30 11:01 | PCMIDPN ---
Assessment/Plan: Assessment: abdominal abscess/infection - polymicrobial following leak in small bowel due to a GIST tumor. Now s/p resection and washout. Cultures of infected area show streptococcus anginosus, a gram positive jessica and a gram negative anaerobe. Covered well with ertapenem at this point - will follow up on GPR identification. Plan: 1. Continue ertapenem monotherapy. 2. Follow up with culture data and clinical course. Subjective: Patient is resting in her hospital bed. Still feels somewhat poorly but no worse than the last couple of days. No fevers or chills. Postoperative abdominal pain is her biggest complaint. Objective: Ertapenem # 9 Vital Signs Temp Pulse Resp BP Pulse Ox 36.6 C 107 H 14 127/85 H 98 11/30/17 08:49 11/30/17 08:49 11/30/17 08:49 11/30/17 08:49 11/30/17 08:49 Microbiology 11/24/17 20:30 Gram Stain - Final Other - Eswab Laboratory Results 11/30/17 06:12 11/30/17 06:12 11/29/17 11/30/17 12/01/17 05:59 05:59 05:59 Intake Total 2056 219 Output Total 1999 2119 Balance 57 73 ESR 57 MM/HR (0-30) H 11/24/17 03:26 C-Reactive Protein 169.6 mg/L (<10.0) H 11/24/17 03:26 - Physical Exam General Appearance: WD/WN, alert, no apparent distress, non-toxic Respiratory: lungs clear, normal breath sounds, No respiratory distress Cardiac/Chest: regular rate, rhythm, No tachycardia Abdomen: soft, other (postoperative discomfort to palpation), No non-tender Skin: normal color, warm/dry, rash Neuro/Psych: alert, normal mood/affect, oriented x 3 ICD10 Worksheet Patient Problems: Problems Problem Status Onset Anemia Acute Vertigo Acute
--- NOTE | 2017-11-30 12:30 | SOAPPROG ---
SOAP Progress Note Assessment/Plan: Assessment: 1.) GI Stomal Tumor- S/P emergent resection- now post-op , day 5. Perforation at tumor mass noted, with antibiotics aimed at polymicrobial peritonitis/sepsis being treated. On Ertapenem. 2.) Anemia- multifactorial- related to underlying malignancy (presumptive) and GI blood loss at erosion of gut wall and post-op. Agree with blood product support, which patient is now accepting. Melena noted. Will need to withhold AC in face of Melanotic output. 3.) Incidental PE/ DVT. Hemodynamically stable, with compromised Tx given extent of GIB. 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 Her primary Oncologist in our group, Dr. Jorge is aware of surgery/findings. Our service will follow as inpatient and outpatient. Agree with blood product support, which will be continued. Hold full dose AC. I again reviewed her malignancy finding and course leading up to her locally advanced disease needing emergency surgical intervention. I did discuss that oral therapy with Imatinib is generally first line therapy once patient fully recovers and is discharged. Imatinib is a TKI ( Tyrosine Kinase Inhibitor). We will continue to assess and discuss with patient and follow as inpt. and outpt. 11/30/17 12:30 Subjective: Feeling much better after transfusion yesterday. Now sitting up in chair and states she walked the jenkins comfortably Objective: VSS, Afebrile as noted here HEENT- anicteric, no oral lesions Neck- supple, R IJ line intact, NT Chest- clear anteriorly CVS- RSR, no extra HS ABD- BS+ but diminished, nondistended EXT- minimal leg edema bilaterally Path report - GIST tumor noted. Vital Signs Temp Pulse Resp BP Pulse Ox 36.6 C 107 H 14 127/85 H 98 11/30/17 08:49 11/30/17 08:49 11/30/17 08:49 11/30/17 08:49 11/30/17 08:49 Microbiology 11/24/17 20:30 Gram Stain - Final Other - Eswab Laboratory Results 11/30/17 06:12 11/30/17 06:12 11/29/17 11/30/17 12/01/17 05:59 05:59 05:59 Intake Total 2056 2192 Output Total 1999 2119 Balance 57 73 PT 13.7 SEC (12.0-15.0) 11/28/17 05:15 INR 1.03 (0.83-1.16) 11/28/17 05:15 ICD10 Worksheet Patient Problems: Problems Problem Status Onset Anemia Acute Vertigo Acute
--- NOTE | 2017-11-30 13:39 | HOSPPROG ---
Hospitalist Progress Note Assessment/Plan: 62-year-old female presents with a new diagnosis small-bowel mass (suspected GIST) complicated by small bowel perforation and post-op ileus new to my care on 11/28/2017 #. Acute pulmonary embolism and DVT. Present on admission, identified by CT angiogram bilat lower lobes, most likely secondary to active malignancy, DVT noted on subsequent US but I suspect that this was the original source of PE and was therefore present prior to admission -heparin is currently on hold see below -pt is at risk for bleeding with resuming anticoagulation. The patient would prefer to not resume anticoagulation today which seems reasonable given the risks and benefits. -will consult interventional Radiology for IVC filter placement. I did discuss this with Dr. Orta who is in agreement with this decision # acute on chronic iron deficiency anemia with suspected acute blood loss ( improved status post 2 U of PRBCs on 11/29/2017) -continue to monitor #. 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 Small bowel perforation. Acute, most likely present on admission, the area was identified during the upper endoscopy but was not the result of the procedure, the 2-3 cm perforation was most likely encased in the tumor outlined above and is most likely the result of the tumor growth -continue IV antibiotics (invanz per Dr. Gorman), no cx data to guide additional narrowing, so will likely require full course of invanz 5. Severe protein calorie malnutrition. Evidenced by low BMI of 16, evidence of proximal muscle wasting and general cachexia, most likely secondary to ongoing malignancy -get dietary consultation -Ensure supplements with meals once able to tolerate oral intake -TPN per Dr. Espinoza given anticipated protracted recovery of bowel -resulting in low albumin (1.9) and pre-albumin (6.4), low oncotic pressure, lower ext edema 6. Urinary tract infection. Evidenced by active urinary symptoms on presentation, potentially positive urinalysis, urine cultures currently no growth -continue IV antibiotics, primarily being used for perforated small bowel above 7. 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 It is unclear what methods patient's natural path used to make this diagnosis, her laboratory tests are negative -I suspect that the patient's current malignant condition has been misinterpreted as a chronic infection by these organisms, which is recognized in the literature to not be an actual chronic infection but rather misdiagnosis -appreciate Infectious Disease assistance with suggesting confirmatory methods to rule out these infections 8. Pulmonary nodule. Present on CT, unclear if e/o extrapulm disease of above, outpt CT per Dr. Palma 9. Pleural effusion. Acute, 2/2 volume, increasing on left side per CXR ( personally interpreted) -not resulting in hypoxia (yet), patient is actively naturesing, so she wants to hold off on lasix, can be used PRN 10. Post-op ileus. No BMs as yet, large bowel surg, anticipate protracted recovery, per surg remain sips/chips only w/ ongoing NGT -dc mason liner Diet. Sips/Chips Prophylaxis. High risk patient, hep gtt Code. Full Disposition. Anticipated discharge uncertain, patient remains severely ill with high level of medical complexity, high risk of worsening morbidity/ mortality, requiring further workup as outlined above. Subjective: Feels much better today. Improved abdominal pain. Denies any fevers or chills. Still not passing flatus. Objective: Vital Signs Temp Pulse Resp BP Pulse Ox 36.3 C 89 19 121/75 H 98 11/30/17 12:45 11/30/17 12:45 11/30/17 12:45 11/30/17 12:45 11/30/17 12:45 Microbiology 11/24/17 20:30 Gram Stain - Final Other - Eswab Laboratory Results 11/30/17 06:12 11/30/17 06:12 11/29/17 11/30/17 12/01/17 05:59 05:59 05:59 Intake Total 2056 2192 Output Total 1999 2119 Balance 57 73 PT 13.7 SEC (12.0-15.0) 11/28/17 05:15 INR 1.03 (0.83-1.16) 11/28/17 05:15 - Physical Exam Constitutional: chronically ill appearing Cardiovascular: regular rate and rhythym, no murmur, rub, or gallop Respiratory: no respiratory distress, reduced air movement, No expiratory wheeze , No rhonchi Gastrointestinal: soft, non-tender abdomen, no palpable masses, distension, other (Diminished bowel sounds) Genitourinary: no bladder fullness, no bladder tenderness, no renal bruits Neurologic: AAOx3, sensation intact bilaterally, CN II-XII Intact, No facial droop ICD10 Worksheet Patient Problems: Problems Problem Status Onset Vertigo Acute Anemia Acute
--- NOTE | 2017-11-30 16:13 | ASMTCMCOM ---
CM Note CM Note Notes: Pt now on 1N. Pt's outpt treatment plan for her likely GIST tumor not clear yet. RN discussed with possible inpt rehab referral. CM will follow for DC plan and support. Date Signed: 11/30/2017 04:12 PM Electronically Signed By:Joan Gaytan LCSW
--- NOTE | 2017-11-30 16:14 | SOAPPROG ---
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 PE on admit, now documented DVTs. Seen and examined with Dr. Espinoza earlier today and d/w'ed Dr. Corrigan. Anemia. H&H with good response to pRBC's. Continue to hold heparin gtt. IVC filter to be placed per IM orders. Ileus, nutrition. NGT out today. Output down, better bowel sounds today. Continue TPN and ice chips. Sips of clears possibly tomorrow. Croft catheter. In place for bladder decompression due to involvement on tumor with bladder wall. Likely remove tomorrow. Removed silver dressing today. Leave incision to air if dry. Ok to shower. IV abx per ID. +purulence associated with necrotic tumor. Appreciated cultures and ID input. Appreciate onc input. Pt's primary oncologist aware of dx of GIST. S: Less tired. A little nervous to move bc of pain--provided encouragement and stressed importance of working with PT and OT. No N/V. O: alert, nad mmm, ng in place no wob abd softly bloated. inc cdi c monica. no erythema, +hypoactive BS--improved from yesterday. 11/30/17 16:08 Objective: Vital Signs Temp Pulse Resp BP Pulse Ox 36.3 C 89 19 121/75 H 98 11/30/17 12:45 11/30/17 12:45 11/30/17 12:45 11/30/17 12:45 11/30/17 12:45 Microbiology 11/24/17 20:30 Gram Stain - Final Other - Eswab Laboratory Results 11/30/17 06:12 11/30/17 06:12 11/29/17 11/30/17 12/01/17 05:59 05:59 05:59 Intake Total 2056 2192 Output Total 1999 2119 Balance 57 73 PT 13.7 SEC (12.0-15.0) 11/28/17 05:15 INR 1.03 (0.83-1.16) 11/28/17 05:15 ICD10 Worksheet Patient Problems: Problems Problem Status Onset Anemia Acute Vertigo Acute
[2017-11-30] MEDS: ENOXAPARIN 40 MG/0.4 ML SYR SC SCH (17:15)
[2017-11-30] MEDS: TPN W/ FAMOTIDINE 1 EA BAG IV SCH (21:24)
[2017-12-01] MEDS: INSULIN REGULAR HUMAN 100 UNIT/ML UNIT SC SCH ×4 (00:56→19:17)
[2017-12-01] MEDS: ERTAPENEM 1 GM VIAL IVP SCH (08:32)
[2017-12-01] MEDS: ENOXAPARIN 40 MG/0.4 ML SYR SC SCH (10:30)
--- NOTE | 2017-12-01 10:46 | SOAPPROG ---
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 PE on admit, now documented DVTs. Anemia. H&H with good response to pRBC's yesterday. Continue to hold heparin gtt. IVC filter to be placed today. Ileus, nutrition. Tolerating ice chips and NG removal. Continue TPN. NPO until procedure, then sips clears. D/w'ed CARLITOS Butts. Croft catheter. In place for bladder decompression due to involvement on tumor with bladder wall. D/c today. Leave incision to air if dry. Ok to shower. IV abx per ID. +purulence associated with necrotic tumor. Appreciated cultures and ID input. Appreciate onc input. Pt's primary oncologist aware of dx of GIST. S: No n/v. pain better. nervous about IVC filter. many questions answered. pt also had long discussion with IM and about it. ok moving fwd with filter. O: alert, nad mmm, ng in place no wob abd softly bloated, unchanged. inc cdi c monica. no erythema. 12/01/17 10:43 Objective: Vital Signs Temp Pulse Resp BP Pulse Ox 36.2 C 80 15 117/77 96 12/01/17 09:45 12/01/17 09:45 12/01/17 09:45 12/01/17 09:45 12/01/17 09:45 Microbiology 11/24/17 20:30 Gram Stain - Final Other - Eswab Laboratory Results 11/30/17 06:12 12/01/17 05:40 11/30/17 12/01/17 12/02/17 05:59 05:59 05:59 Intake Total 2193 863 Output Total 2120 1800 550 Balance 73 -937 -550 PT 13.7 SEC (12.0-15.0) 11/28/17 05:15 INR 1.03 (0.83-1.16) 11/28/17 05:15 ICD10 Worksheet Patient Problems: Problems Problem Status Onset Anemia Acute Vertigo Acute
--- NOTE | 2017-12-01 13:06 | PCMIDPN ---
Assessment/Plan: 1. Contained bowel perforation/abscess secondary to large intra-abdominal tumor : She is covered appropriately with ertapenem. As outlined by Dr. Gorman, plan is for 10 days of antibiotic therapy postoperatively; stop date December 04, or this coming Monday. Subjective: Has many questions about her convalescence moving forward. Otherwise tolerating the ertapenem. Tolerating TPN. Objective: Ertapenem 1 g IV daily day 10 Afebrile Temp Pulse Resp BP Pulse Ox 36.6 C 94 15 123/85 H 98 12/01/17 12:30 12/01/17 12:30 12/01/17 12:30 12/01/17 12:30 12/01/17 12:30 Microbiology 11/24/17 20:30 Gram Stain - Final Other - Eswab Laboratory Results 11/30/17 06:12 12/01/17 05:40 11/30/17 12/01/17 12/02/17 05:59 05:59 05:59 Intake Total 2193 863 Output Total 2120 1800 550 Balance 73 -937 -550 ESR 57 MM/HR (0-30) H 11/24/17 03:26 C-Reactive Protein 169.6 mg/L (<10.0) H 11/24/17 03:26 Cultures with strep anginosus and eggerthia, he Gram-positive anaerobe - Physical Exam General Appearance: no apparent distress, cachetic EENT: pharynx normal, No thrush Respiratory: lungs clear Cardiac/Chest: regular rate, rhythm, No tachycardia Abdomen: other (Abdominal incision looks excellent. Danay in place, no erythema or discharge.) Skin: No rash ICD10 Worksheet Patient Problems: Problems Problem Status Onset Anemia Acute Vertigo Acute
[2017-12-01] MEDS ORDERED: NALOXONE HCL 0.4 MG/ML INJ IVP PRN (15:04)
[2017-12-01] MEDS ORDERED: fentaNYL 100 MCG/2 ML INJ IVP PRN (15:04)
[2017-12-01] MEDS ORDERED: MIDAZOLAM 2 MG/2 ML VIAL IVP PRN (15:04)
[2017-12-01] MEDS ORDERED: FLUMAZENIL 0.5 MG/5 ML MDV IVP PRN (15:04)
[2017-12-01] MEDS ORDERED: MEPERIDINE 25 MG/ML SYR IVP PRN (15:04)
[2017-12-01] MEDS ORDERED: NS 1,000 ML IV SCH (15:15)
[2017-12-01 15:25] LABS: INR 0.99 (0.83-1.16); PROTIME(PATIENT) 13.3 SEC (12.0-15.0)
--- NOTE | 2017-12-01 15:55 | PDPROPOC ---
Sedation Plan of Care Sedation Plan of Care: vital signs stable, mental status noted, patient educated of risks, benefits, alternatives, patient can tolerate sedation ASA Classification: ASA 4 Planned drugs: fentanyl, midazolam Mallampati Score: Class 1 Mallampati Reference Image: Patient passed 3-3-2 rule?: Yes
[2017-12-01] MEDS ORDERED: IOPAMIDOL (ISOVUE-370) 150 ML BTL IV ONE (16:37)
--- NOTE | 2017-12-01 16:37 | PDRADPN ---
Radiology Procedure Note Date of Procedure: 12/01/17 Radiologist: Devin Roberts Anesthesia: Other (Specify) (Fentanyl 50 mcg IV) Pre-op Diagnosis: DVT, PE, GI bleed Post-op Diagnosis: Same Indication: Anticoagulation contraindicated. Procedure: IVC gram. Retrievable IVC filter Finding(s): Normal IVC. Cook Celect retrievable IVC filter deployed at level of L2-3. Inf/Abcess present in the surg proc area at time of surgery?: No EBL: Minimal Complications: 0. (Transjugular filter retrieval is most successful when performed within 6 months of filter placement.)
--- NOTE | 2017-12-01 17:07 | ASMTCMCOM ---
CM Note CM Note Notes: Pt to have IVC filter placed. She will be on IV ertapenem until at least 12/04. Pt should have an inpt rehabe eval on Monday. Date Signed: 12/01/2017 05:07 PM Electronically Signed By:Joan Gaytan LCSW
--- NOTE | 2017-12-01 18:08 | HOSPPROG ---
Hospitalist Progress Note Assessment/Plan: DIAGNOSES: # Acute pulmonary embolism and DVT. Present on admission, identified by CT angiogram bilat lower lobes -initially on heparin but that is currently held as she has had recurrent GI bleeding requiring transfusion -after significant discussion with Dr. Lopez and Yuniel, it is felt there is still some risk of bleeding with anticoagulation and so we are Recommending placement of IVC filter for the moment, resume anticoagulation once bleeding risk appears resolved sufficiently # acute post hemorrhagic anemia from GI bleeding while on heparin, likely anastomotic source but could consider ulcer as well; 5 U red cells transfused to date -will add proton pump inhibitor today -continue to avoid anticoagulation until bleeding risk seems abated # Small bowel mass/GIST complicated by small bowel perforation and abscess -status post tumor resection, small areas which were unresectable, so may need further consideration by Onc for systemic tx if patient chooses to pursue further aggressive care -ongoing antibiotic therapy at this time for the abscess and duration # persisting postoperative ileus # Severe protein calorie malnutrition. Evidenced by low BMI of 16, evidence of proximal muscle wasting and general cachexia, most likely secondary to ongoing malignancy -ongoing TPN at present # Reported history of Lyme Disease and Babesiosis. It is unclear what methods patient's natural path used to make this diagnosis, her laboratory tests are negative -? if the patient's current malignant condition has been misinterpreted as a chronic infection by these organisms, which is recognized in the literature to not be an actual chronic infection but rather misdiagnosis I spent approximately 45 min discussing the patient's current situation with her and with her this morning. The patient had been declining recommendations for vena cava filter placement which was recommended due to recurrent GI bleeding a requirement for transfusions while receiving heparin for her PE. They had many very good questions and I answered all these questions for her. I reviewed the situation with Dr. Lopez from surgery today as well. At this point the patient is now agreeable to a IVC placement and this has been arranged PLANS: --Placement of IVC filter today -Avoid anticoagulant until she is clearly stable without further bleeding; follow blood counts closely -At that time Resume IV heparin and watch for any signs of recurrent bleeding and if remains stable couple days consider changing Lovenox which she shortly be discharged on due to her malignancy -continue current antibiotics -continue TPN -continue physical occupational therapy -could routine measures for postop ileus -oncology consultation when she is stable enough for discharge or for beginning other therapies SUBJECTIVE: Patient at this time still feels extremely weak. She has ongoing symptoms of ileus. There are no symptoms of fevers no respiratory symptoms no new chest pains or leg pains She has not had any vomiting but no flatus or bowel movement OBJECTIVE Vitals reviewed: Stable without fever Third Mate, my review: Exam: alert oriented , mildly anxious skin warm dry color ok resps not labored lungs clear BSs heart regular abd soft but distended and tender, minimal bowel sounds present limbs warm, no edema iv site ok Objective: Vital Signs Temp Pulse Resp BP Pulse Ox 36.6 C 74 15 132/75 H 98 12/01/17 16:00 12/01/17 18:00 12/01/17 18:00 12/01/17 18:00 12/01/17 18:00 Microbiology 11/24/17 20:30 Gram Stain - Final Other - Eswab Anaerobic Culture - Final Streptococcus Anginosus Eggerthia Species Eggerthella Lenta Laboratory Results 11/30/17 06:12 12/01/17 05:40 11/30/17 12/01/17 12/02/17 06:59 06:59 06:59 Intake Total 2193 863 150 Output Total 2120 1800 950 Balance 73 -937 -800 PT 13.3 SEC (12.0-15.0) 12/01/17 15:10 INR 0.99 (0.83-1.16) 12/01/17 15:10 - Time Spent With Patient Time Spent with Patient: greater than 35 minutes Time Spent with Patient: Greater than 35 minutes spent on this patients care, greater than 50% of time spent counseling, educating, and coordinating care regarding the above mentioned plan. ICD10 Worksheet Patient Problems: Problems Problem Status Onset Anemia Acute Vertigo Acute
[2017-12-01] MEDS: PANTOPRAZOLE SODIUM 40 MG VIAL IVP SCH (22:20)
[2017-12-01] MEDS: TPN 1 EA BAG IV SCH (22:20)
[2017-12-02] MEDS: INSULIN REGULAR HUMAN 100 UNIT/ML UNIT SC SCH ×4 (01:57→18:44)
[2017-12-02 05:53] LABS: PLATELET COUNT 246 10^3/uL (150-400)
--- NOTE | 2017-12-02 08:16 | SOAPPROG ---
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 PE on admit, now documented DVTs. Bled on Heparin drip s/p IVC filter. No bleeding overnight. H/H down slightly , will trend Clears Leave incision to air if dry. Ok to shower. IV abx per ID. +purulence associated with necrotic tumor. Appreciated cultures and ID input. Appreciate onc input. Pt's primary oncologist aware of dx of GIST. S: No flatus yet this am. Still with pain LLQ O: alert, nad CTAB no increased work of breathing Regular rate BS present, slight distension, soft, incision cdi R groin with scant stain on dressing Plan: 12/02/17 08:14 Objective: Vital Signs Temp Pulse Resp BP Pulse Ox 36.8 C 75 14 106/75 98 12/02/17 00:00 12/02/17 04:00 12/02/17 04:00 12/02/17 04:00 12/02/17 04:00 Microbiology 11/24/17 20:30 Gram Stain - Final Other - Eswab Anaerobic Culture - Final Streptococcus Anginosus Eggerthia Species Eggerthella Lenta Laboratory Results 12/02/17 05:40 12/02/17 05:40 12/01/17 12/02/17 12/03/17 05:59 05:59 05:59 Intake Total 863 2275 Output Total 1800 1850 Balance -937 425 PT 13.3 SEC (12.0-15.0) 12/01/17 15:10 INR 0.99 (0.83-1.16) 12/01/17 15:10 ICD10 Worksheet Patient Problems: Problems Problem Status Onset Anemia Acute Vertigo Acute
[2017-12-02] MEDS: PANTOPRAZOLE SODIUM 40 MG VIAL IVP SCH ×2 (08:44→21:52)
[2017-12-02] MEDS: ERTAPENEM 1 GM VIAL IVP SCH (08:48)
[2017-12-02] MEDS: ENOXAPARIN 40 MG/0.4 ML SYR SC SCH (09:03)
--- NOTE | 2017-12-02 12:02 | SOAPPROG ---
[facility] Progress Note Assessment/Plan: Assessment: 1) Gastric GIST with perforation s/p surgery 2) DVT/ PE s/p IVC filter placement 12/01 3) GI bleeding secondary to #1 (anticoagulation current;y being held) Plan: Patient continues to recover from her surgery. Her pathology is c/w a gastric GIST. PDGFRA and KIT results pending. If positive , would plan Imatanib in the outpatient setting once she is well enough to go home. I discussed Imatanib therapy with her today. She will follow up with Dr. Jorge at discharge Anticoagulation currently being held due to GI bleeding. An IVC filter was placed yesterday. Patient's questions answered. 12/02/17 11:57 Subjective: IVC filer placed yesterday. She has had no further episodes of melena. Passing flatus. Reports minimal abdominal pain. Objective: Vital Signs Temp Pulse Resp BP Pulse Ox 36.4 C 83 19 118/84 H 97 12/02/17 08:33 12/02/17 08:33 12/02/17 08:33 12/02/17 08:33 12/02/17 08:33 Microbiology 11/24/17 20:30 Gram Stain - Final Other - Eswab Anaerobic Culture - Final Streptococcus Anginosus Eggerthia Species Eggerthella Lenta Laboratory Results 12/02/17 05:40 12/02/17 05:40 12/01/17 12/02/17 12/03/17 05:59 05:59 05:59 Intake Total 863 2275 Output Total 1800 1850 300 Balance -937 425 -300 PT 13.3 SEC (12.0-15.0) 12/01/17 15:10 INR 0.99 (0.83-1.16) 12/01/17 15:10 - Time Spent With Patient Time Spent With Patient: 20 minutes Physical Exam - Physical Exam General Appearance: alert, other (sitting in chair) EENT: PERRL/EOMI Abdomen: non-tender, soft, other (hypoactive BS) Neuro/Psych: alert, normal mood/affect ICD10 Worksheet Patient Problems: Problems Problem Status Onset Anemia Acute Vertigo Acute
--- NOTE | 2017-12-02 12:19 | HOSPPROG ---
Hospitalist Progress Note Assessment/Plan: 62-year-old initially admitted with vertigo, however had worked up for a intestinal mass by Dr. 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 She underwent resection on 11/24. # Complicated resection of GIST tumor. Complicated by small bowel perforation and abscess. * Continue Invanz LOT per ID * Appreciate on his surgical follow-up * Patient take sips of ice day. * Defer to Oncology regarding chemotherapy in the future. # bilateral pulmonary emboli diagnosed on 11/23 because of tachycardia. She was unable to tolerate anticoagulation due to GI bleeding likely anastomosis. * Anticoagulation on hold * IVC filter placed * Resume anticoagulation okay per surgery. # acute post hemorrhagic anemia from GI bleeding while on heparin. See above. * Status post 5 years of packed red cells * PPI added # persistent. Ileus # severe protein calorie malnutrition, on TPN # reported history of Lyme disease and Babesiosis treated by a curtain cutter in [place]. Unclear if this is an actual pathogen. # Subjective: Patient new to me and chart reviewed. She is doing pretty well today still has some pain in her abdomen. No significant chest pain. She still not able to eat much and has no appetite. Objective: Vital Signs Temp Pulse Resp BP Pulse Ox 36.4 C 83 19 118/84 H 97 12/02/17 08:33 12/02/17 08:33 12/02/17 08:33 12/02/17 08:33 12/02/17 08:33 Microbiology 11/24/17 20:30 Gram Stain - Final Other - Eswab Anaerobic Culture - Final Streptococcus Anginosus Eggerthia Species Eggerthella Lenta Laboratory Results 12/02/17 05:40 12/02/17 05:40 12/01/17 12/02/17 12/03/17 05:59 05:59 05:59 Intake Total 863 2275 Output Total 1800 1850 300 Balance -937 425 -300 PT 13.3 SEC (12.0-15.0) 12/01/17 15:10 INR 0.99 (0.83-1.16) 12/01/17 15:10 - Physical Exam Constitutional: chronically ill appearing, uncomfortable Eyes: PERRL, anicteric sclera, EOMI Ears, Nose, Mouth, Throat: dry mucous membranes Cardiovascular: regular rate and rhythym Respiratory: no respiratory distress, reduced air movement Gastrointestinal: tenderness, No normoactive bowel sounds Skin: warm, No normal color (Pale) Musculoskeletal: generalized weakness Neurologic: AAOx3 Psychiatric: interacting appropriately ICD10 Worksheet Patient Problems: Problems Problem Status Onset Anemia Acute Vertigo Acute
[2017-12-02] MEDS: TPN 1 EA BAG IV SCH (21:52)
[2017-12-03] MEDS: INSULIN REGULAR HUMAN 100 UNIT/ML UNIT SC SCH ×3 (00:59→13:39)
[2017-12-03 03:24] LABS: PLATELET COUNT 255 10^3/uL (150-400)
[2017-12-03] MEDS: PANTOPRAZOLE SODIUM 40 MG VIAL IVP SCH ×2 (08:05→21:14)
[2017-12-03] MEDS: ERTAPENEM 1 GM VIAL IVP SCH (08:08)
--- NOTE | 2017-12-03 12:03 | SOAPPROG ---
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 PE on admit, now documented DVTs. Bled on Heparin drip s/p IVC filter. No bleeding overnight. H/H stable. If continues to be stable, can move towards trying Heparin drip again in a few days Clears - advance diet - anticipate it will be several days before can dc tpn Leave incision to air if dry. Ok to shower. IV abx per ID. +purulence associated with necrotic tumor. Appreciated cultures and ID input. Appreciate onc input. Pt's primary oncologist aware of dx of GIST. S: Flatus and BM. tolerating clears O: alert, nad CTAB no increased work of breathing Regular rate BS present, slight distension, soft, incision cdi Plan: 12/02/17 08:14 12/03/17 12:03 12/03/17 12:04 12/03/17 12:06 Objective: Vital Signs Temp Pulse Resp BP Pulse Ox 36.6 C 80 18 114/72 96 12/03/17 08:38 12/03/17 08:38 12/03/17 08:38 12/03/17 08:38 12/03/17 08:38 Laboratory Results 12/03/17 03:15 12/03/17 03:15 12/02/17 12/03/17 12/04/17 05:59 05:59 05:59 Intake Total 2275 1738 Output Total 1850 2550 Balance 425 -812 PT 13.3 SEC (12.0-15.0) 12/01/17 15:10 INR 0.99 (0.83-1.16) 12/01/17 15:10 ICD10 Worksheet Patient Problems: Problems Problem Status Onset Anemia Acute Vertigo Acute
--- NOTE | 2017-12-03 13:01 | HOSPPROG ---
Hospitalist Progress Note Assessment/Plan: 62-year-old initially admitted with vertigo, however had worked up for a intestinal mass by Dr. 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 She underwent resection on 11/24. # Complicated resection of GIST tumor. Complicated by small bowel perforation and abscess. * Continue Invanz LOT per ID * Appreciate surgical follow-up * Patient diet advanced to soft diet * Will follow up with Dr. Jorge and start imatanib as outpatient. # bilateral pulmonary emboli diagnosed on 11/23 because of tachycardia. She was unable to tolerate anticoagulation due to GI bleeding likely anastomosis. * Anticoagulation on hold * IVC filter placed * Heparin drip trial if continues to be stable in a few days. # acute post hemorrhagic anemia from GI bleeding while on heparin. See above. * Status post 5 years of packed red cells * PPI added # persistent. Ileus # severe protein calorie malnutrition, on TPN # reported history of Lyme disease and Babesiosis treated by a repair servicer in [place]. Unclear if this is an actual pathogen. # Subjective: feeling better, still having some night sweats intermittantly but overall looking better. no sob Objective: Vital Signs Temp Pulse Resp BP Pulse Ox 36.6 C 80 18 114/72 96 12/03/17 08:38 12/03/17 08:38 12/03/17 08:38 12/03/17 08:38 12/03/17 08:38 Laboratory Results 12/03/17 03:15 12/03/17 03:15 12/02/17 12/03/17 12/04/17 05:59 05:59 05:59 Intake Total 2275 1738 Output Total 1850 2550 Balance 425 -812 PT 13.3 SEC (12.0-15.0) 12/01/17 15:10 INR 0.99 (0.83-1.16) 12/01/17 15:10 - Physical Exam Constitutional: chronically ill appearing Eyes: PERRL, EOMI Ears, Nose, Mouth, Throat: moist mucous membranes, hearing normal Cardiovascular: regular rate and rhythym Respiratory: no respiratory distress, clear to auscultation Gastrointestinal: tenderness (mild), No normoactive bowel sounds (present but decreased) Genitourinary: no bladder fullness Skin: warm Musculoskeletal: generalized weakness Neurologic: AAOx3 Psychiatric: interacting appropriately, anxious ICD10 Worksheet Patient Problems: Problems Problem Status Onset Vertigo Acute Anemia Acute
--- NOTE | 2017-12-03 13:34 | ASMTCMCOM ---
CM Note CM Note Notes: Spoke with patient about discharge planning. Current PT/OT recommendations are SNF. Patient feels that she cannot return home - she is very weak, has little endurance, and her works and is not readily available. I explained differences between SNF and home care and private duty caregivers. She wondered what her insurance would cover, and I explained that we would have to call them ([employer]) and see who they are in network with. We will follow up with [employer] tomorrow and also continue to assess patient's discharge needs. Date Signed: 12/03/2017 01:33 PM Electronically Signed By:Whit Busch RN
[2017-12-03] MEDS: TPN 1 EA BAG IV SCH (21:14)
[2017-12-04 06:51] LABS: PLATELET COUNT 258 10^3/uL (150-400)
[2017-12-04 07:27] LABS: PROTIME(PATIENT) 13.4 SEC (12.0-15.0)
--- NOTE | 2017-12-04 08:16 | SOAPPROG ---
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 PE on admit, now documented DVTs. Bled on Heparin drip s/p IVC filter. Dr. Rosen to see patient today--defer to his judgement regarding time frame for anticoagulating again, probably over next few days. Regular diet, still not taking in much PO - anticipate it will be several days before can dc tpn. Leave incision to air if dry. Ok to shower. Bladder spasm. Sometimes feels she has to urinate but doesn't--similar to when morfin was in place. Doesn't want meds for this. Probably 2/2 irritation and spasm. Continue to monitor. Doubt bladder leak. IV abx per ID. +purulence associated with necrotic tumor. Appreciated cultures and ID input. Appreciate onc input. Pt's primary oncologist aware of dx of GIST. S: some gas pains after eating. has had cream of wheat and mashed potatoes. no n /v. feels weak--walking, but "endurance" a problem she says. O: alert, nad mmm ctab anteriorly abd softer, appropriately ttp. inc cdi c monica. no erythema. 12/04/17 08:11 Objective: Vital Signs Temp Pulse Resp BP Pulse Ox 36.7 C 77 16 123/76 H 96 12/04/17 04:00 12/04/17 04:00 12/04/17 04:00 12/04/17 04:00 12/04/17 04:00 Laboratory Results 12/04/17 06:30 12/04/17 06:30 12/03/17 12/04/17 12/05/17 05:59 05:59 05:59 Intake Total 1738 2406 Output Total 2550 650 Balance -812 1756 PT 13.4 SEC (12.0-15.0) 12/04/17 06:30 INR 1.00 (0.83-1.16) 12/04/17 06:30 ICD10 Worksheet Patient Problems: Problems Problem Status Onset Anemia Acute Vertigo Acute
[2017-12-04] MEDS ORDERED: HYDROmorphONE/DILAUDID 2 MG TAB PO PRN (09:45)
[2017-12-04] MEDS: ERTAPENEM 1 GM VIAL IVP SCH (09:49)
[2017-12-04] MEDS: PANTOPRAZOLE SODIUM 40 MG VIAL IVP SCH ×2 (10:08→21:48)
--- NOTE | 2017-12-04 13:31 | HOSPPROG ---
Hospitalist Progress Note Assessment/Plan: 62-year-old initially admitted with vertigo, however had worked up for a intestinal mass by Dr. 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 She underwent resection on 11/24. # Complicated resection of GIST tumor. Complicated by small bowel perforation and abscess. * Continue Invanz LOT per ID * Appreciate surgical follow-up * Patient is slowly advancing diet but not tolerating much food * Will follow up with Dr. Jorge and start imatanib as outpatient. # bilateral pulmonary emboli diagnosed on 11/23 because of tachycardia. She was unable to tolerate anticoagulation due to GI bleeding likely anastomosis. * Anticoagulation on hold * IVC filter placed * Heparin drip trial if continues to be stable in a few days. Spent > 50% of visit discussing anticoag, filter, plan. # acute post hemorrhagic anemia from GI bleeding while on heparin. See above. * Status post 5 years of packed red cells * PPI added # persistent. Ileus # severe protein calorie malnutrition, on TPN, will continue until she is able to tolerate sufficient PO nutrition # reported history of Lyme disease and Babesiosis treated by a casino banker in [place]. Unclear if this is an actual pathogen. # Subjective: having some gas with eating Objective: Vital Signs Temp Pulse Resp BP Pulse Ox 36.2 C 84 15 108/68 96 12/04/17 11:39 12/04/17 11:39 12/04/17 11:39 12/04/17 11:39 12/04/17 11:39 Laboratory Results 12/04/17 06:30 12/04/17 06:30 12/03/17 12/04/17 12/05/17 05:59 05:59 05:59 Intake Total 1738 2406 Output Total 2550 650 Balance -812 1756 PT 13.4 SEC (12.0-15.0) 12/04/17 06:30 INR 1.00 (0.83-1.16) 12/04/17 06:30 - Time Spent With Patient Time Spent with Patient: greater than 25 minutes Time Spent with Patient: Greater than 25 minutes spent on this patients care, greater than 50% of time spent counseling, educating, and coordinating care regarding the above mentioned plan. - Physical Exam Constitutional: chronically ill appearing Eyes: EOMI Ears, Nose, Mouth, Throat: hearing normal Cardiovascular: regular rate and rhythym Respiratory: no respiratory distress, clear to auscultation Gastrointestinal: normoactive bowel sounds, tenderness Skin: normal color Neurologic: AAOx3 Psychiatric: interacting appropriately ICD10 Worksheet Patient Problems: Problems Problem Status Onset Vertigo Acute Anemia Acute
--- NOTE | 2017-12-04 15:06 | ASMTCMCOM ---
CM Note CM Note Notes: Spoke with pt re SNF options. She is agreeable to sending referrals to SNFs in [place] and [facility] as her works in [place].PASRR done. Referrals sent to [facility] (accepted), [facility] (pending cost of TPN, if needed), [facility] (no), [facility] (no), [facility] (yes), [facility] (no answer yet). [facility] stated pt has a $5,500 deductible and 30% copay - [employer] is closed today so we are unable to determine if she has met her deductible. Pt currently on TPN - unsure if she will need it at d/c. Date Signed: 12/04/2017 03:06 PM Electronically Signed By:DIANE Hugo
[2017-12-04] MEDS: TPN 1 EA BAG IV SCH (21:48)
[2017-12-05] MEDS: PANTOPRAZOLE SODIUM 40 MG VIAL IVP SCH ×2 (08:14→21:25)
--- NOTE | 2017-12-05 11:31 | HOSPPROG ---
Hospitalist Progress Note Assessment/Plan: 62-year-old initially admitted with vertigo, however had worked up for a intestinal mass by Dr. 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 She underwent resection on 11/24. # Complicated resection of GIST tumor. Complicated by small bowel perforation and abscess. * Continue Invanz LOT per ID * Appreciate surgical follow-up * Patient is slowly advancing diet but not tolerating much food * Will follow up with Dr. Jorge and start imatanib as outpatient. # bilateral pulmonary emboli diagnosed on 11/23 because of tachycardia. She was unable to tolerate anticoagulation due to GI bleeding likely anastomosis. * Anticoagulation on hold * IVC filter placed * Heparin drip trial if continues to be stable in a few days. # acute post hemorrhagic anemia from GI bleeding while on heparin. See above. * Status post 5 units of packed red cells * PPI added # persistent. Ileus # severe protein calorie malnutrition, on TPN, will continue until she is able to tolerate sufficient PO nutrition # reported history of Lyme disease and Babesiosis treated by a actuarial consultant in [place]. Unclear if this is an actual pathogen. Disposition: Patient will likely be here several more days. She needs a resumption of IV heparin to see if she tolerates anticoagulation. She also needs to improve her p. o. intake and discontinue TPN prior to discharge # Subjective: No new complaints, ambulating yesterday. Tolerating some food but still gets quite gassy. Objective: Vital Signs Temp Pulse Resp BP Pulse Ox 36.6 C 82 15 119/72 96 12/05/17 07:58 12/05/17 07:58 12/05/17 07:58 12/05/17 07:58 12/05/17 07:58 Laboratory Results 12/04/17 06:30 12/04/17 06:30 12/04/17 12/05/17 12/06/17 05:59 05:59 05:59 Intake Total 2406 1274 635 Output Total 650 Balance 1756 1274 635 PT 13.4 SEC (12.0-15.0) 12/04/17 06:30 INR 1.00 (0.83-1.16) 12/04/17 06:30 - Physical Exam Constitutional: no apparent distress, chronically ill appearing Cardiovascular: regular rate and rhythym Respiratory: no respiratory distress Gastrointestinal: tenderness (Mild), No distension ICD10 Worksheet Patient Problems: Problems Problem Status Onset Vertigo Acute Anemia Acute
--- NOTE | 2017-12-05 12:07 | SOAPPROG ---
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 PE on admit, now documented DVTs. Restart heparin gtt tomorrow. Patient refusing SC routine lovenox and heparin. Bled on Heparin drip, s/p IVC filter. Gas pains with eating. R/o ileus vs. SBO. Will get AXR. May still have AUNG. Continue TPN. IV abx per ID. +purulence associated with necrotic tumor. Appreciated cultures and ID input. Appreciate onc input. Pt's primary oncologist aware of dx of GIST. Seen and examined with Dr. Rosen. S: continued gas pains after eating. no n/v. not passing gas right now she says , although did over the last few days. O: alert, nad mmm no wob abd softly bloated, appropriately ttp. inc cdi c monica. no erythema. 12/05/17 12:04 Objective: Vital Signs Temp Pulse Resp BP Pulse Ox 36.3 C 76 13 102/61 98 12/05/17 11:42 12/05/17 11:42 12/05/17 11:42 12/05/17 11:42 12/05/17 11:42 Laboratory Results 12/04/17 06:30 12/04/17 06:30 12/04/17 12/05/17 12/06/17 05:59 05:59 05:59 Intake Total 2406 1274 635 Output Total 650 Balance 1756 1274 635 PT 13.4 SEC (12.0-15.0) 12/04/17 06:30 INR 1.00 (0.83-1.16) 12/04/17 06:30 ICD10 Worksheet Patient Problems: Problems Problem Status Onset Anemia Acute Vertigo Acute
--- NOTE | 2017-12-05 15:59 | ASMTCMCOM ---
CM Note CM Note Notes: Leila from [facility] in to see pt and answer any questions she might have had. Leif from [facility] also here today. Both SNFs able to accept pt. Pt's TPN is paid for by her insurance. Pt leaning toward [facility] as it will be more convienent for her . Pt somewhat tearful today as she doesn't want to be a burden to her . We discussed the advantages of her having SNF rehab stay before going home. [facility] to follow up with CM tomorrow re possible d/c date and hopefully start insurance authorization before the weekend. Date Signed: 12/05/2017 03:58 PM Electronically Signed By:DIANE Hugo
[2017-12-05] MEDS: TPN 1 EA BAG IV SCH (21:25)
[2017-12-06] MEDS ORDERED: HEPARIN 10,000 UNIT/10 ML MDV (1,000 UNIT/ML) IVP ONE (07:28)
[2017-12-06] MEDS ORDERED: BISACODYL 10 MG SUPP PR ONE (07:30)
[2017-12-06 08:23] LABS: PLATELET COUNT 337 10^3/uL (150-400)
[2017-12-06 08:32] LABS: INR 0.98 (0.83-1.16); PROTIME(PATIENT) 13.2 SEC (12.0-15.0)
[2017-12-06] MEDS: HEPARIN/DEXTROSE 500 ML IV SCH (09:35)
[2017-12-06] MEDS: PANTOPRAZOLE SODIUM 40 MG VIAL IVP SCH ×2 (09:35→20:31)
--- NOTE | 2017-12-06 09:59 | SOAPPROG ---
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 PE on admit, now documented DVTs. Restart heparin gtt today. Follow H&H. S/p IVC filter. Plan for PO anticoagulation if does well with heparin. Consider Eliquis--pt would like to avoid bridging/lovenox. Gas pains. Passed a large amount of flatus yesterday. AXR with constipation, no SBO. Offered dulcolax [place]. AUNG. May start to wean from TPN vs calorie count. D/c monica. IV abx per ID. +purulence associated with necrotic tumor. Appreciated cultures and ID input. Appreciate onc input. Pt's primary oncologist aware of dx of GIST. S: no BM. +flatus. gas pains better. O: alert, nad mmm no wob abd softly bloated, appropriately ttp. inc cdi c monica. no erythema. 12/06/17 09:56 Objective: Vital Signs Temp Pulse Resp BP Pulse Ox 36.4 C 89 18 117/74 97 12/06/17 09:22 12/06/17 09:22 12/06/17 09:22 12/06/17 09:22 12/06/17 09:22 Laboratory Results 12/06/17 08:12 12/06/17 04:30 12/05/17 12/06/17 12/07/17 05:59 05:59 05:59 Intake Total 1274 1935 Balance 1274 1935 PT 13.2 SEC (12.0-15.0) 12/06/17 08:12 INR 0.98 (0.83-1.16) 12/06/17 08:12 ICD10 Worksheet Patient Problems: Problems Problem Status Onset Anemia Acute Vertigo Acute
--- NOTE | 2017-12-06 12:59 | HOSPPROG ---
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 - check UA # PE/DVT - s/p IVC filter placement - heparin gtt started today, follow closely given previous hemorrhage # ABLA, post-op s/p 5U PRBC, occurred on heparin - follow closely # severe protein calorie malnutrition - TPN, try to transition to PO # reported hx Lyme disease - ab negative # pulm nodule - outpatient f/u Subjective: complains of dysuria; had a BM today Objective: Vital Signs Temp Pulse Resp BP Pulse Ox 36.2 C 93 18 116/67 98 12/06/17 12:30 12/06/17 12:30 12/06/17 12:30 12/06/17 12:30 12/06/17 12:30 Laboratory Results 12/06/17 08:12 12/06/17 04:30 12/05/17 12/06/17 12/07/17 05:59 05:59 05:59 Intake Total 1274 1935 Balance 1274 1935 PT 13.2 SEC (12.0-15.0) 12/06/17 08:12 INR 0.98 (0.83-1.16) 12/06/17 08:12 chart reviewed CTA reviewed op note reviewed - Physical Exam Constitutional: no apparent distress, appears nourished Cardiovascular: regular rate and rhythym, no murmur, rub, or gallop Respiratory: no respiratory distress, no rales or rhonchi, clear to auscultation Gastrointestinal: normoactive bowel sounds, other (soft, TP; surgical monica present) ICD10 Worksheet Patient Problems: Problems Problem Status Onset Vertigo Acute Anemia Acute
--- NOTE | 2017-12-06 17:01 | ASMTCMCOM ---
CM Note CM Note Notes: Spoke with pt today about SNF choice. Pt's had just called pt after visiting [facility] and wanted to visit [facility] and [facility] before making his choice. Discussed pt's new cancer dx with her. Pt wanted to process her feelings. 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 She talked a lot about western vs eastern medicine and how issues with her ins. co prevented her from getting a dx sooner. Pt would also benefit from a visit from Fernando Fierro. Trevor. Left her a message. Cm will continue to follow pt and provide support and resources. Date Signed: 12/06/2017 05:00 PM Electronically Signed By:Joan Gaytan LCSW
[2017-12-06] MEDS: TPN 1 EA BAG IV SCH (20:31)
[2017-12-07] MEDS: PANTOPRAZOLE SODIUM 40 MG VIAL IVP SCH (07:58)
--- NOTE | 2017-12-07 11:16 | HOSPPROG ---
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; should improve with treatment # PE/DVT - s/p IVC filter placement - heparin gtt started yesterday, follow closely given previous hemorrhage # ABLA, post-op s/p 5U PRBC, occurred on heparin - follow closely # severe protein calorie malnutrition - TPN, cut rate to 1/2 today; continue to transition to PO # reported hx Lyme disease - ab negative # pulm nodule - outpatient f/u Subjective: dysuria was better yesterday afternoon, worse today Objective: Vital Signs Temp Pulse Resp BP Pulse Ox 36.4 C 93 16 114/73 96 12/07/17 08:55 12/07/17 08:55 12/07/17 08:55 12/07/17 08:55 12/07/17 08:55 Laboratory Results 12/07/17 06:00 12/06/17 04:30 12/06/17 12/07/17 12/08/17 05:59 05:59 05:59 Intake Total 1935 1150 990 Output Total 350 Balance 1935 800 990 PT 13.2 SEC (12.0-15.0) 12/06/17 08:12 INR 0.98 (0.83-1.16) 12/06/17 08:[address] Hall - Physical Exam Constitutional: no apparent distress, cachectic Ears, Nose, Mouth, Throat: hearing normal Cardiovascular: No edema Respiratory: no respiratory distress Gastrointestinal: distension (mild) Genitourinary: No morfin in urethra Skin: warm Musculoskeletal: full muscle strength Neurologic: AAOx3 Psychiatric: interacting appropriately ICD10 Worksheet Patient Problems: Problems Problem Status Onset Vertigo Acute Anemia Acute
--- NOTE | 2017-12-07 15:55 | ASMTCMCOM ---
CM Note CM Note Notes: Met with pt today who stated that [facility] is their first choice. Becki at has started the insurance process. faxed updated JAN. DC unknown. CM to follow. Date Signed: 12/07/2017 03:54 PM Electronically Signed By:Joan Gaytan LCSW
[2017-12-07] MEDS: HEPARIN 10,000 UNIT/10 ML MDV (1,000 UNIT/ML) IVP PRN (17:41)
[2017-12-07] MEDS: TPN 1 EA BAG IV SCH (21:35)
--- NOTE | 2017-12-07 23:54 | SOAPPROG ---
SOAP Progress Note Assessment/Plan: Assessment: AFEBRILE/WOUND OKAY/LISA OUT/ABDOMEN SOFT POSITIVE BOWEL SOUNDS AND POSITIVE BOWEL MOVEMENT Plan: WEAN OFF TPN 12/07/17 23:54 Objective: Vital Signs Temp Pulse Resp BP Pulse Ox 36.4 C 85 16 106/92 H 96 12/07/17 23:45 12/07/17 23:45 12/07/17 23:45 12/07/17 23:45 12/07/17 23:45 Laboratory Results 12/07/17 06:00 12/06/17 04:30 12/06/17 12/07/17 12/08/17 05:59 05:59 05:59 Intake Total 1935 1150 2059 Output Total 350 500 Balance 4746 873 7695 PT 13.2 SEC (12.0-15.0) 12/06/17 08:12 INR 0.98 (0.83-1.16) 12/06/17 08:12 ICD10 Worksheet Patient Problems: Problems Problem Status Onset Anemia Acute Vertigo Acute
[2017-12-08] MEDS: HEPARIN 10,000 UNIT/10 ML MDV (1,000 UNIT/ML) IVP PRN (00:01)
[2017-12-08] MEDS: HEPARIN/DEXTROSE 500 ML IV SCH (10:09)
--- NOTE | 2017-12-08 15:44 | ASMTCMCOM ---
CM Note CM Note Notes: Becki from [facility] called to say that they had obtained insurance auth and it is good from 7 days from 12/07. DC unclear. CM to follow. Date Signed: 12/08/2017 03:43 PM Electronically Signed By:Joan Gaytan LCSW
--- NOTE | 2017-12-08 16:41 | HOSPPROG ---
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; should improve with treatment # PE/DVT - s/p IVC filter placement - heparin gtt started 12/06, follow closely given previous hemorrhage - consider NOAC tomorrow # ABLA, post-op s/p 5U PRBC, occurred on heparin - follow closely # severe protein calorie malnutrition - stop TPN today # reported hx Lyme disease - ab negative # pulm nodule - outpatient f/u Subjective: feeling well, tolerating PO Objective: Vital Signs Temp Pulse Resp BP Pulse Ox 36.5 C 81 16 105/67 96 12/08/17 12:00 12/08/17 12:00 12/08/17 12:00 12/08/17 12:00 12/08/17 12:00 Laboratory Results 12/08/17 04:18 12/06/17 04:30 12/07/17 12/08/17 12/09/17 05:59 05:59 05:59 Intake Total 1150 2931 Output Total 350 1300 Balance 800 1631 PT 13.2 SEC (12.0-15.0) 12/06/17 08:12 INR 0.98 (0.83-1.16) 12/06/17 08:12 - Time Spent With Patient Time Spent with Patient: greater than 25 minutes Time Spent with Patient: Greater than 25 minutes spent on this patients care, greater than 50% of time spent counseling, educating, and coordinating care regarding the above mentioned plan. - Physical Exam Constitutional: no apparent distress, appears nourished ICD10 Worksheet Patient Problems: Problems Problem Status Onset Vertigo Acute Anemia Acute
[2017-12-09] MEDS: HEPARIN/DEXTROSE 500 ML IV SCH (04:25)
--- NOTE | 2017-12-09 14:37 | HOSPPROG ---
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; should improve with treatment # PE/DVT - s/p IVC filter placement - heparin gtt started 12/06, transition to pradaxa tonight # ABLA, post-op s/p 5U PRBC, occurred on heparin - follow closely # severe protein calorie malnutrition - stop TPN today # reported hx Lyme disease - ab negative # pulm nodule - outpatient f/u Subjective: no dysuria today; having BMs; discused Pradaxa at length Objective: Vital Signs Temp Pulse Resp BP Pulse Ox 36.7 C 82 17 118/83 H 94 12/09/17 11:31 12/09/17 11:31 12/09/17 11:31 12/09/17 11:31 12/09/17 11:31 Laboratory Results 12/09/17 04:35 12/06/17 04:30 12/08/17 12/09/17 12/10/17 05:59 05:59 05:59 Intake Total 2931 520 Output Total 1300 Balance 1631 520 PT 13.2 SEC (12.0-15.0) 12/06/17 08:12 INR 0.98 (0.83-1.16) 12/06/17 08:12 - Time Spent With Patient Time Spent with Patient: greater than 25 minutes Time Spent with Patient: Greater than 25 minutes spent on this patients care, greater than 50% of time spent counseling, educating, and coordinating care regarding the above mentioned plan. - Physical Exam Constitutional: no apparent distress, appears nourished Eyes: anicteric sclera Ears, Nose, Mouth, Throat: hearing normal Cardiovascular: No edema Respiratory: no respiratory distress Gastrointestinal: No distension Genitourinary: No morfin in urethra Skin: warm Neurologic: AAOx3 Psychiatric: not anxious ICD10 Worksheet Patient Problems: Problems Problem Status Onset Vertigo Acute Anemia Acute
--- NOTE | 2017-12-09 14:44 | SOAPPROG ---
SOAP Progress Note Assessment/Plan: Assessment: AFEBRILE/WOUND OKAY/LISA OUT/ABDOMEN SOFT POSITIVE BOWEL SOUNDS AND POSITIVE BOWEL MOVEMENT Plan: WEAN OFF TPN 12/07/17 23:54 12/09/17 14:43 AFEBRILE/ABDOMEN SOFT NONTENDER/WOUND OKAY/EATING BETTER/POSITIVE BOWEL MOVEMENTS/ PLAN WILL BE HOME SOON Objective: Vital Signs Temp Pulse Resp BP Pulse Ox 36.7 C 82 17 118/83 H 94 12/09/17 11:31 12/09/17 11:31 12/09/17 11:31 12/09/17 11:31 12/09/17 11:31 Laboratory Results 12/09/17 04:35 12/06/17 04:30 12/08/17 12/09/17 12/10/17 05:59 05:59 05:59 Intake Total 2931 520 Output Total 1300 Balance 1631 520 PT 13.2 SEC (12.0-15.0) 12/06/17 08:12 INR 0.98 (0.83-1.16) 12/06/17 08:12 ICD10 Worksheet Patient Problems: Problems Problem Status Onset Anemia Acute Vertigo Acute
[2017-12-09] MEDS: HEPARIN 10,000 UNIT/10 ML MDV (1,000 UNIT/ML) IVP PRN (15:51)
--- NOTE | 2017-12-09 16:23 | ASMTCMCOM ---
CM Note CM Note Notes: Pt's TPN dc'ed. Currently on heparin drip. D/C plan has been SNF ([facility]) however PT now recommending home vs. home care. OT still recommending SNF as of 12/08/17. Date Signed: 12/09/2017 04:22 PM Electronically Signed By:DIANE Hugo
[2017-12-09] MEDS: DABIGATRAN ETEXILATE MESYL 150 MG CAP PO SCH (20:25)
[2017-12-10 05:43] LABS: PLATELET COUNT 301 10^3/uL (150-400)
[2017-12-10] MEDS: DABIGATRAN ETEXILATE MESYL 150 MG CAP PO SCH ×2 (10:43→20:32)
--- NOTE | 2017-12-10 11:58 | ASMTCMCOM ---
CM Note CM Note Notes: 12/10/2017 Case Management Note Met w/pt to discuss need for home care services. Pt expressed concerns re: being a burden to and wanting to be independent in ADL's. Pt is fearful stamina will impede ability to be completely independent at home. Discussed resources home care provides including RN PT and FORM WORKER. If possible pt would like daily PT for 5 days and then decrease to 3 x /week. FORM WORKER will be necessary for housekeeping and meal prep. Pt wanted time to discuss with . Case management to meet w/pt tomorrow. Case Management d/c poc: Home Care after pt discusses with and choses agency. Likely [facility]. Case Management to follow. Date Signed: 12/10/2017 11:58 AM Electronically Signed By:Vandana Jaramillo RN
--- NOTE | 2017-12-10 14:03 | HOSPPROG ---
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; should improve with treatment # PE/DVT - s/p IVC filter placement - heparin gtt transitioned to pradaxa yesterday # ABLA, post-op s/p 5U PRBC, occurred on heparin - follow closely # severe protein calorie malnutrition - TPN stopped today # reported hx Lyme disease - ab negative # pulm nodule - outpatient f/u # dispo - PT to re-eval; was set on SNF but PT rec'd home yesterday; consider home with HC Subjective: frustrated as PT now rec's home with HC Objective: Vital Signs Temp Pulse Resp BP Pulse Ox 36.2 C 76 15 108/60 98 12/10/17 10:26 12/10/17 11:19 12/10/17 11:19 12/10/17 11:19 12/10/17 11:19 Laboratory Results 12/10/17 05:30 12/10/17 05:30 12/09/17 12/10/17 12/11/17 05:59 05:59 05:59 Intake Total 520 300 Output Total 1200 Balance 520 -900 PT 13.2 SEC (12.0-15.0) 12/06/17 08:12 INR 0.98 (0.83-1.16) 12/06/17 08:12 - Time Spent With Patient Time Spent with Patient: greater than 25 minutes Time Spent with Patient: Greater than 25 minutes spent on this patients care, greater than 50% of time spent counseling, educating, and coordinating care regarding the above mentioned plan. - Physical Exam Constitutional: no apparent distress, appears nourished, cachectic ICD10 Worksheet Patient Problems: Problems Problem Status Onset Vertigo Acute Anemia Acute
--- NOTE | 2017-12-10 15:45 | SOAPPROG ---
SOAP Progress Note Assessment/Plan: Assessment: AFEBRILE/WOUND OKAY/LISA OUT/ABDOMEN SOFT POSITIVE BOWEL SOUNDS AND POSITIVE BOWEL MOVEMENT Plan: WEAN OFF TPN 12/07/17 23:54 12/09/17 14:43 AFEBRILE/ABDOMEN SOFT NONTENDER/WOUND OKAY/EATING BETTER/POSITIVE BOWEL MOVEMENTS/ PLAN WILL BE HOME SOON 12/10/17 15:44 WOUND OKAY/EATING /POSITIVE BOWEL MOVEMENT/ AFEBRILE/ NO NEW PROBLEMS HOME TODAY OR REHAB Objective: Vital Signs Temp Pulse Resp BP Pulse Ox 36.7 C 95 18 111/67 97 12/10/17 15:10 12/10/17 15:10 12/10/17 15:10 12/10/17 15:10 12/10/17 15:10 Laboratory Results 12/10/17 05:30 12/10/17 05:30 12/09/17 12/10/17 12/11/17 05:59 05:59 05:59 Intake Total 520 300 Output Total 1200 Balance 520 -900 PT 13.2 SEC (12.0-15.0) 12/06/17 08:12 INR 0.98 (0.83-1.16) 12/06/17 08:12 ICD10 Worksheet Patient Problems: Problems Problem Status Onset Anemia Acute Vertigo Acute
[2017-12-11] MEDS: DABIGATRAN ETEXILATE MESYL 150 MG CAP PO SCH (10:08)
--- NOTE | 2017-12-11 10:36 | PDIAF ---
- Diagnosis Diagnosis: GIST tumor s/p resection, PE/DVT Code Status: Full Code - Medication Management Discharge Medications: Medications to Continue on Transfer Dabigatran Etexilate Mesyl [Pradaxa 150 MG (*)] 150 mg PO BID #60 cap 12/11/17 [ Last Taken Unknown] Polyethylene Glycol 3350 [Miralax 17 gm (*)] 17 gm PO DAILY PRN #30 pkt [Last Taken Unknown] Discharge Medications: Refer to the Discharge Home Medication list for PRN reason. PICC Care - Routine: N/A - Orders Services needed: Registered Nurse, Physical Therapy, Occupational Therapy Diet Recommendation: no restrictions on diet - Follow Up Care Current Providers and Referrals: Patient,NotPresent [Unknown] - As per Instructions Devin Rosen MD [Medical Doctor] - Yan Jorge MD [Medical Doctor] -
[2017-12-11 13:42] VITALS: BP 131/83; PULSE 94; RESP 15; TEMP 97.5; O2SAT 98
--- NOTE | 2017-12-11 17:10 | ASDISCHSUM ---
Discharge Information Plan Status:SNF Medically Cleared to Leave: Discharge Date:12/11/2017 01:54 PM CM D/C Disposition:Half-Way Facility ADT D/C Disposition:Half-Way Facility Projected Discharge Date:12/11/2017 11:00 AM Transportation at D/C: Discharge Delay Reason: Follow-Up Date:12/11/2017 11:00 AM Discharge Slot: Final Diagnosis:Small bowel mass, perf; PE, Anemia, Malnutrition, UTI Placement Information Referral Type:*Longterm/SNF Referral ID:[id number] Provider Name:Kia Whitaker [place] Address 1[address] Phone Number: Address 2: Fax Number: City:[place] Selection Factors: State:[place] Patient Contact Information Contact Name:GENAROGARY Relationship: Address:[address] [address] Work Phone: [facility]:[place] Alternate Phone: State/Zip Code:[place] [address] Email: Financial Information Financial Class:[employer] Primary Plan Desc:[facility] Primary Plan Number:[id number] Secondary Plan Desc: Secondary Plan Number: Assessment Information [facility] Initial CM Assessment Living Arrangements What is your living Answers: With Spouse arrangement? Who do you live with? Type Of Residence What kind of residence do Answers: House you live in? Discharge Plan Comments Coordination Status Comments Notes: Pt is a 62 y/o female admitted for vertigo. Pt will most likely d/c independent when medically stable. No therapies ordered at this time. CM available for changes. Plan: Independent Date Signed: 11/23/2017 12:11 PM Electronically Signed By:LEIGH Das [facility] CM Progress Note CM Note CM Note Notes: Per ICU rounds, pt s/p enteroscopy and colonoscopy, large mass seen, biopsies obtained. Surgery and oncology to consult. Pt may require additional surgery. NG tube in place. Discharge plan/needs remain to be determined at this time as they await pathology reports. CM will cont to follow. Current Discharge Plan: To be determined Date Signed: 11/25/2017 06:11 PM Electronically Signed By:Mary Kay Joseph RN [facility] CM Progress Note CM Note CM Note Notes: Therapies recommending SNF at this time. Still very sick, up with walker. Date Signed: 11/28/2017 04:22 PM Electronically Signed By:Marialuisa Nowak LCSW [facility] CM Progress Note CM Note CM Note Notes: Pt now on 1N. Pt's outpt treatment plan for her likely GIST tumor not clear yet. RN discussed with possible inpt rehab referral. CM will follow for DC plan and support. Date Signed: 11/30/2017 04:12 PM Electronically Signed By:Joan Gaytan LCSW [facility] CM Progress Note CM Note CM Note Notes: Pt to have IVC filter placed. She will be on IV ertapenem until at least 12/04. Pt should have an inpt rehabe eval on Monday. Date Signed: 12/01/2017 05:07 PM Electronically Signed By:Joan Gaytan LCSW [facility] CM Progress Note CM Note CM Note Notes: Spoke with patient about discharge planning. Current PT/OT recommendations are SNF. Patient feels that she cannot return home - she is very weak, has little endurance, and her works and is not readily available. I explained differences between SNF and home care and private duty caregivers. She wondered what her insurance would cover, and I explained that we would have to call them ([facility]) and see who they are in network with. We will follow up with [employer] tomorrow and also continue to assess patient's discharge needs. Date Signed: 12/03/2017 01:33 PM Electronically Signed By:Whit Busch RN [facility] CM Progress Note CM Note CM Note Notes: Spoke with pt re SNF options. She is agreeable to sending referrals to SNFs in [place] and [facility] as her works in [place].PASRR done. Referrals sent to [facility] (accepted), [facility] (pending cost of TPN, if needed), [facility] (no), [facility] (no), [facility] (yes), [facility] (no answer yet). [facility] stated pt has a $5,500 deductible and 30% copay - [employer] is closed today so we are unable to determine if she has met her deductible. Pt currently on TPN - unsure if she will need it at d/c. Date Signed: 12/04/2017 03:06 PM Electronically Signed By:DIANE Hugo [facility] Progress Note CM Note CM Note Notes: Leila from [facility] in to see pt and answer any questions she might have had. Leif from [facility] also here today. Both SNFs able to accept pt. Pt's TPN is paid for by her insurance. Pt leaning toward [facility] as it will be more convienent for her . Pt somewhat tearful today as she doesn't want to be a burden to her . We discussed the advantages of her having SNF rehab stay before going home. [facility] to follow up with CM tomorrow re possible d/c date and hopefully start insurance authorization before the weekend. Date Signed: 12/05/2017 03:58 PM Electronically Signed By:DIANE Hugo [facility] ANNMARIE Progress Note CM Note CM Note Notes: Spoke with pt today about SNF choice. Pt's had just called pt after visiting [facility] and wanted to visit [facility] and [facility] before making his choice. Discussed pt's new cancer dx with her. Pt wanted to process her feelings. 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 She talked a lot about western vs eastern medicine and how issues with her ins. co prevented her from getting a dx sooner. Pt would also benefit from a visit from Onc. Trevor Fierro. Left her a message. Cm will continue to follow pt and provide support and resources. Date Signed: 12/06/2017 05:00 PM Electronically Signed By:Joan Gaytan LCSW [facility] CM Progress Note CM Note CM Note Notes: Met with pt today who stated that [facility] is their first choice. Becki at has started the insurance process. faxed updated JAN. DC unknown. CM to follow. Date Signed: 12/07/2017 03:54 PM Electronically Signed By:Joan Gaytan LCSW [facility] CM Progress Note CM Note ANNMARIE Note Notes: Becki from [facility] called to say that they had obtained insurance auth and it is good from 7 days from 12/07. DC unclear. CM to follow. Date Signed: 12/08/2017 03:43 PM Electronically Signed By:Joan Gaytan LCSW [facility] CM Progress Note CM Note CM Note Notes: Pt's TPN dc'ed. Currently on heparin drip. D/C plan has been SNF ([facility]) however PT now recommending home vs. home care. OT still recommending SNF as of 12/08/17. Date Signed: 12/09/2017 04:22 PM Electronically Signed By:DIANE Hugo [facility] CM Progress Note CM Note CM Note Notes: 12/10/2017 Case Management Note Met w/pt to discuss need for home care services. Pt expressed concerns re: being a burden to and wanting to be independent in ADL's. Pt is fearful stamina will impede ability to be completely independent at home. Discussed resources home care provides including RN PT and [employer]UPATIONAL THER[employer]Y [employer]ST. If possible pt would like daily PT for 5 days and then decrease to 3 x /week. C[employer] OCCUPATIONAL THERAPY [employer]ST will be necessary for housekeeping and meal prep. Pt wanted time to discuss with . Case management to meet w/pt tomorrow. Case Management d/c poc: Home Care after pt discusses with and choses agency. Likely [facility]. Case Management to follow. Date Signed: 12/10/2017 11:58 AM Electronically Signed By:Vandana Jaramillo RN Case Management Discharge Plan Note Case Management Discharge Discharge Order Complete? Answers: Yes Patient to Obtain Answers: Other Notes: at [facility] Medications Transportation Arranged Answers: Other Notes: [facility] Faxed Final Orders Answers: Yes Agency/Facility Transfer Answers: Yes Report Printed & Faxed to Receiving Agency Family Notified Answers: Yes Notes: on-site Discharge Comments Notes: Pt was re-evaluated by PT this AM and they are now recommending SNF; pt in agreement w/this and feels she could really use some rehab. Spoke to Medina from [facility] which is where pt would like to go and they are able to accept today, insurance auth from last week still good for today per Becki. Met w/pt and to discuss. Also, discussed w/MD and RN who will call report to [facility]. Date Signed: 12/11/2017 11:41 AM Electronically Signed By:Shannon Stephens RN Intervention Information Intervention Type:*Incorrect Registration Date of Service:11/22/2017 04:56 PM Patient Type:Observation Staff Member:CARLITOS Sheehan, Radha Hours: Discipline: Severity: Comment:
--- NOTE | 2017-12-12 09:16 | GDS ---
[f rep st] DISCHARGE SUMMARY DISCHARGE DIAGNOSES: 1. Gastrointestinal stromal tumor, status post surgical resection. 2. Contained bowel perforation with abscess, status post 10 days of Invanz. 3. Pulmonary embolism and deep venous thrombosis, status post inferior vena cava filter, discharging on Pradaxa. 4. Acute blood loss anemia, status post 5 units packed red blood cells. 5. Severe protein calorie malnutrition, required TPN. 6. History of reported Lyme disease, antibody negative. 7. Pulmonary nodule which will require outpatient followup. HISTORY: For details please see the dictated history and physical dated November 22, 2017. In brief, the patient is a 62-year-old female who presented to the emergency department with vertigo. Initial workup revealed an abdominal neoplasm and she was admitted to the hospital for further management. CONSULTANTS: 1. Dr. Yvette Garcia, Oncology. 2. Dr. Toñito Turner, Gastroenterology. 3. Dr. Hector Gorman, Infectious Disease. 4. Dr. Leif Rosen, General Surgery. 5. Dr. Laron Kelley, Pulmonology. 6. HOSPITAL COURSE: The patient was admitted to the med/surg unit. 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 A head CT was performed given her presenting sympto m of vertigo, which was negative for metastatic disease. CT pulmonary angiogram revealed bilateral s egmental and subsegmental pulmonary emboli involving both lower lobes and lingula as well as a 4 x 5 mm pulmonary nodule in the left lower lobe which will require outpatient followup imaging in 6-12 mon ths. She was started on IV heparin for her PE and DVT. She underwent an enteroscopy and EGD and a l arge exophytic ulcerated mass in the mid jejunum was seen along with a significant defect consistent with a contained perforation. Biopsy was performed at that time, which was consistent with a GIST tu mor. Due to the contained perforation, a surgical evaluation was requested and the patient was taken to the operating room where she underwent laparotomy with resection of the mesenteric GIST tumor wit h small bowel and partial left sigmoid colectomy as well as partial right colectomy on November 24. Infectious disease consult was also obtained due to the perforation and associated abscess. She comp leted 10 days of IV Invanz. Her blood cultures were negative. Abdominal cultures grew strep anginos us and anaerobic gram-positive jessica. In addition, she had a stool PCR positive for shiga like toxin p roducing E coli but in the absence of preceding diarrhea or bloody diarrhea, it is thought this may h ave been a false positive and was of doubtful clinical significance. With respect to her reported hi story of Lyme disease, a Lyme antibody was checked and was negative, discounting her prior diagnosis. She did undergo IVC filter placement due to her significant risk of bleeding on anticoagulation and ultimately received a total of 6 units of packed red blood cells due to GI bleeding, likely from her anastomosis. Her anticoagulation was held for several days and once seemed that her bleeding stoppe d, she was resumed on a heparin drip and tolerated this with no further bleeding episode. This was t hen transitioned to oral Pradaxa. She continued to have a stable hemoglobin, which was 9.5 on the da y of discharge. She did require TPN for poor nutritional status during this prolonged hospitalizatio n. Her bowel function returned. She had bowel movements, was able to begin tolerating p.o. and TPN was stopped prior to discharge. On the day of discharge, she is hemodynamically stable. Given her weight loss and deconditioning, cameron vigil warrants ongoing rehab. DISPOSITION: Patient was discharged to alf facility for a course of rehab. FOLLOWUP: 1. Dr. Leif Rosen. 2. Dr. Yan Jorge. DISCHARGE MEDICATIONS: Please see [employer] for completed outpatient medication list. New medications at discharge include Pradaxa 150 mg p.o. twice daily #60, no refills and MiraLAX 17 g p.o. daily p.r.n., #30, no refills. /[id number]/MODL
== END 2017-12-11 13:54 | DRG 515 ==
LOC: EDUNIT# → INTOOBSV 13:56 → F2W 15:46 → OBSVTOIN 11-23 09:08 → F2N 11-24 23:09 → F1N 11-29 20:04
PROVIDERS: ADMIT Student in an Organized Health Care Education/Training Program; ATTEND Hospitalist
PROC: 30233N1 Transfusion of Nonautologous Red Blood Cells into Peripheral Vein, Percutaneous Approach (ICD-10-PCS; 2017-11-23)
PROC: 0DB98ZX Excision of Duodenum, Via Natural or Artificial Opening Endoscopic, Diagnostic (ICD-10-PCS; 2017-11-24)
PROC: 0DB88ZX Excision of Small Intestine, Via Natural or Artificial Opening Endoscopic, Diagnostic (ICD-10-PCS; 2017-11-24)
PROC: 0DBA8ZX Excision of Jejunum, Via Natural or Artificial Opening Endoscopic, Diagnostic (ICD-10-PCS; 2017-11-24)
PROC: 0DBA0ZZ Excision of Jejunum, Open Approach (ICD-10-PCS; principal; 2017-11-25)
PROC: 0DBH0ZZ Excision of Cecum, Open Approach (ICD-10-PCS; principal; 2017-11-25)
PROC: 0DBN0ZZ Excision of Sigmoid Colon, Open Approach (ICD-10-PCS; principal; 2017-11-25)
PROC: 0DBB0ZZ Excision of Ileum, Open Approach (ICD-10-PCS; principal; 2017-11-25)
PROC: B549ZZA Ultrasonography of Inferior Vena Cava, Guidance (ICD-10-PCS; 2017-12-01)
PROC: 06H03DZ Insertion of Intraluminal Device into Inferior Vena Cava, Percutaneous Approach (ICD-10-PCS; 2017-12-01)
DX: C49.A3 Gastrointestinal stromal tumor of small intestine (principal); K63.1 Perforation of intestine (nontraumatic); C79.89 Secondary malignant neoplasm of other specified sites; C78.5 Secondary malignant neoplasm of large intestine and rectum; C79.11 Secondary malignant neoplasm of bladder; K91.840 Postprocedural hemorrhage of a digestive system organ or structure following a digestive system procedure; K91.89 Other postprocedural complications and disorders of digestive system; D68.32 Hemorrhagic disorder due to extrinsic circulating anticoagulants; T45.515A Adverse effect of anticoagulants, initial encounter; N39.0 Urinary tract infection, site not specified; D62 Acute posthemorrhagic anemia; E43 Unspecified severe protein-calorie malnutrition; Z68.1 Body mass index [BMI] 19.9 or less, adult; K65.1 Peritoneal abscess; I26.99 Other pulmonary embolism without acute cor pulmonale; I82.412 Acute embolism and thrombosis of left femoral vein; I82.433 Acute embolism and thrombosis of popliteal vein, bilateral; I82.443 Acute embolism and thrombosis of tibial vein, bilateral; I82.493 Acute embolism and thrombosis of other specified deep vein of lower extremity, bilateral; K76.89 Other specified diseases of liver; D47.3 Essential (hemorrhagic) thrombocythemia; D63.0 Anemia in neoplastic disease; D50.9 Iron deficiency anemia, unspecified; R91.8 Other nonspecific abnormal finding of lung field; R00.0 Tachycardia, unspecified; Z88.0 Allergy status to penicillin; Z88.1 Allergy status to other antibiotic agents
CPT/HCPCS: 82607-90; 82784-90; 84134-90; 85520-90; 86334-90; 86618-90; 88184-90; 88185-91; 97110-GP; 97116-GP; 97161-GP; 97164-GP; 97165-GO; 97530-GO; 97530-GP; 97535-GO; A9585; C1769; G0378; J0330; J1100; J1170; J1335; J1610; J1644; J1650; J1815; J1956; J2405; J2704; J3010; J3475; P9016; P9040; P9041; Q9967

== ENCOUNTER 2017-12-13 21:54 | Inpatient (IN) | payer OTHER ==
[2017-12-13] MEDS ORDERED: NS 1,000 ML IV ONE (22:48)
--- NOTE | 2017-12-13 22:53 | EDPHY ---
H & P Stated Complaint: N/V abd pain HPI/ROS: CHIEF COMPLAINT: Vomiting and diarrhea HISTORY OF PRESENT ILLNESS: This is a 62-year-old female who was hospitalized here from November 22 through December 11 during which time she underwent surgical resection of a gastrointestinal stromal tumor. While hospitalized she was treated with 10 days of Invanz for bowel perforation with abscess. She was discharged from here 2 days ago to [facility] in [place]. This evening, 5 hr ago, she developed vomiting and diarrhea. She has had multiple bouts of emesis and profuse watery diarrhea. She has crampy abdominal pain, no distension. She has not had fever. Her also developed diarrhea tonight. REVIEW OF SYSTEMS: A ten point review of systems was performed and is negative with the exception of the items mentioned in the HPI. Past medical history: 1. Gastrointestinal stromal tumor 2. Pulmonary embolism with DVT 3. Pulmonary nodule 4. Protein calorie malnutrition Past surgical history: 1. Left sigmoid colectomy and right partial colectomy for resection of gastrointestinal stromal tumor. Bowel perforation with abscess noted at time of surgery and treated with antibiotics 2. Inferior vena cava filter placed for PE Social history: She is . 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 No tobacco use. General Appearance: Alert. Vital signs reviewed. Blood pressure 138/88, temperature 36.4degrees. Heart rate 76. Eyes: Pupils equal and round, no conjunctival injection, no discharge. Anicteric. ENT, Mouth: Mucous membranes are slightly dry, no oropharyngeal erythema or edema. Neck: No lymphadenopathy, supple. Respiratory: Lungs are clear to auscultation; no wheezes, rales, or rhonchi. Cardiovascular: Regular rate and rhythm; no murmur, rub, or gallop. Gastrointestinal: Abdomen is thin, soft and mildly diffusely tender, no guarding, no masses or organomegaly, bowel sounds decreased but present. Midline vertically oriented surgical incision with stay Steri-Strips in place-- incision is intact without drainage, surrounding erythema, or warmth. Skin: Warm and dry, normal color. Back: Nontender to palpation over the thoracolumbar spine. No CVAT. Extremities: No lower extremity edema, no calf tenderness or swelling. Neurological: Alert and oriented. Moving all four extremities easily and equally. Psychiatric: Normal affect. - Personal History Current Tetanus/Diphtheria Vaccine: No Current Tetanus Diphtheria and Acellular Pertussis (TDAP): No - Medical/Surgical History Hx Asthma: No Hx Chronic Respiratory Disease: No Hx Diabetes: No Hx Cardiac Disease: No Hx Renal Disease: No Hx Cirrhosis: No Hx Alcoholism: No Hx HIV/AIDS: No Hx Splenectomy or Spleen Trauma: No Other PMH: hernia, lyme disease, anemia, babesia (infectious disease per pt), lyphoma - Social History Smoking Status: Never smoked Constitutional: Initial Vital Signs Heart Rate 76 12/13/17 22:06 Respiratory Rate 18 12/13/17 22:06 Blood Pressure 138/88 H 12/13/17 22:06 O2 Sat (%) 98 12/13/17 22:06 O2 Delivery Mode Room Air Allergies/Adverse Reactions: Penicillins Allergy (Verified 12/13/17 22:10) Hives Sulfa (Sulfonamide Antibiotics) Allergy (Verified 12/13/17 22:10) Other-Enter Comments Home Medications: Medication Instructions Recorded Dabigatran Etexilate Mesyl 150 mg PO BID #60 cap 12/11/17 [Pradaxa 150 MG (*)] Polyethylene Glycol 3350 [Miralax 17 gm PO DAILY PRN #30 pkt 12/11/17 17 gm (*)] Tuberculin Syringe 12/13/17 Tylenol 12/13/17 Medical Decision Making ED Course/Re-evaluation: 62-year-old status post recent left sigmoid colectomy and partial right colectomy for treatment of GI ST tumor. She is currently in a rehabilitation facility where she developed profuse vomiting and watery diarrhea. Her abdomen is soft and nondistended on exam; mild diffuse tenderness without guarding. Bowel sounds are present. This would not be a typical presentation for bowel obstruction. She did have a contained bowel perforation at the time of surgery and was treated with Invanz. Persistent abscess is a possibility although this would not be the typical presentation. She does not have fever. I suspect a viral gastroenteritis. Her has a similar illness that also developed tonight. I recommend admission for continued hydration, antiemetics, and antidiarrheal agents if needed. GI pathogen panel has been ordered--she has not yet had diarrhea in the emergency department. Clostridium difficile is a concern after a prolonged hospitalization with antibiotics. I note that she had a stool sample during her hospitalization that was positive for shiga like toxin producing E coli but at that time she was not having diarrhea. The significance of this is unclear. - Data Points Laboratory Results: 12/13/17 12/13/17 22:20 22:20 WBC Pending RBC Pending Hgb Pending Hct Pending MCV Pending MCH Pending MCHC Pending RDW Pending Plt Count Pending MPV Pending Neut % (Auto) Pending Lymph % (Auto) Pending [place] % (Auto) Pending Eos % (Auto) Pending Baso % (Auto) Pending Nucleat RBC Rel Count Pending Absolute Neuts (auto) Pending Absolute Lymphs (auto) Pending Absolute Monos (auto) Pending Absolute Eos (auto) Pending Absolute Basos (auto) Pending Absolute Nucleated RBC Pending Immature Gran % Pending Immature Gran # Pending Sodium Pending Potassium Pending Chloride Pending Carbon Dioxide Pending Anion Gap Pending BUN Pending Creatinine Pending Estimated GFR Pending Glucose Pending Calcium Pending Medications Given: Discontinued Medications Sodium Chloride (Ns) 1,000 mls @ 0 mls/hr IV ONCE ONE PRN Reason: Wide Open Stop: 12/13/17 22:49 Last Admin: 12/13/17 22:51 Dose: 1,000 mls Departure - Departure Disposition: [facility] Inpatient Acute Clinical Impression: Acute gastroenteritis Condition: Good Referrals: RALEIGH PEREIRA [Other] - As per Instructions
[2017-12-13 23:22] LABS: PLATELET COUNT 343 10^3/uL (150-400)
[2017-12-13] MEDS ORDERED: ONDANSETRON 4 MG/2 ML VIAL IVP PRN (23:28)
[2017-12-13] MEDS ORDERED: ACETAMINOPHEN 325 MG TAB PO PRN (23:28)
--- NOTE | 2017-12-13 23:42 | PDGENHP ---
History and Physical - Chief Complaint Diarrhea, vomiting - History of Present Illness 62 yo F w/ recent admission for resection of GIST tumor and PE presents with vomiting and diarrhea 1 day after discharge. 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 She underwent surgical resection and received 10 days of Invanz therapy as well. Of note, she had a stool PCR at that time positive for Shiga-like toxin producing E. Coli, but this was not treated as patient was not having symptoms. She developed watery diarrhea and vomiting today. Her has similar symptoms. She denies blood in her stool. History Information - Allergies/Home Medication List Allergies/Adverse Reactions: Penicillins Allergy (Verified 12/13/17 22:10) Hives Sulfa (Sulfonamide Antibiotics) Allergy (Verified 12/13/17 22:10) Other-Enter Comments Home Medications: Tuberculin Syringe 12/13/17 [Last Taken Unknown] Tylenol 12/13/17 [Last Taken Unknown] I have personally reviewed and updated: family history, medical history - Past Medical History cancer, DVT Additional medical history: GIST tumor - Surgical History Additional surgical history: Resection of GIST tumor - Family History Positive for: cancer - Social History Smoking Status: Never smoked Review of Systems Review of Systems: ROS: 10pt was reviewed & negative except for what was stated in HPI & below Physical Exam Physical Exam: Temp Pulse Resp BP Pulse Ox 76 18 138/88 H 98 12/13/17 22:06 12/13/17 22:06 12/13/17 22:06 12/13/17 22:06 Constitutional: uncomfortable, other (Thin) Ears, Nose, Mouth, Throat: no oral mucosal ulcers, dry mucous membranes Cardiovascular: regular rate and rhythym, no murmur, rub, or gallop Respiratory: no respiratory distress, no rales or rhonchi Gastrointestinal: normoactive bowel sounds, tenderness (Lucy-umbilical), other ( Well healing mid-line surgical incision.) Skin: warm, normal color Musculoskeletal: full muscle strength, no muscle tenderness Neurologic: AAOx3, CN II-XII Intact Psychiatric: interacting appropriately, not anxious Lab Data & Imaging Review 12/13/17 22:20 12/13/17 22:20 WBC 11.95 10^3/uL (3.80-9.50) H 12/13/17 22:20 RBC 4.43 10^6/uL (4.18-5.33) 12/13/17 22:20 Hgb 13.3 g/dL (12.6-16.3) 12/13/17 22:20 Hct 41.9 % (38.0-47.0) D 12/13/17 22:20 MCV 94.6 fL (81.5-99.8) 12/13/17 22:20 MCH 30.0 pg (27.9-34.1) 12/13/17 22:20 MCHC 31.7 g/dL (32.4-36.7) L 12/13/17 22:20 RDW 16.0 % (11.5-15.2) H 12/13/17 22:20 Plt Count 343 10^3/uL (150-400) 12/13/17 22:20 MPV 9.9 fL (8.7-11.7) 12/13/17 22:20 Neut % (Auto) 93.4 % (39.3-74.2) H 12/13/17 22:20 Lymph % (Auto) 2.3 % (15.0-45.0) L 12/13/17 22:20 Dixon % (Auto) 2.4 % (4.5-13.0) L 12/13/17 22:20 Eos % (Auto) 1.1 % (0.6-7.6) 12/13/17 22:20 Baso % (Auto) 0.5 % (0.3-1.7) 12/13/17 22:20 Nucleat RBC Rel Count 0.0 % (0.0-0.2) 12/13/17 22:20 Absolute Neuts (auto) 11.15 10^3/uL (1.70-6.50) H 12/13/17 22:20 Absolute Lymphs (auto) 0.28 10^3/uL (1.00-3.00) L 12/13/17 22:20 Absolute Monos (auto) 0.29 10^3/uL (0.30-0.80) L 12/13/17 22:20 Absolute Eos (auto) 0.13 10^3/uL (0.03-0.40) 01/24/18 22:20 Absolute Basos (auto) 0.06 10^3/uL (0.02-0.10) 12/13/17 22:20 Absolute Nucleated RBC 0.00 10^3/uL (0-0.01) 12/13/17 22:20 Immature Gran % 0.3 % (0.0-1.1) 12/13/17 22:20 Immature Gran # 0.04 10^3/uL (0.00-0.10) 12/13/17 22:20 Sodium 144 mEq/L (135-145) 12/13/17 22:20 Potassium 3.5 mEq/L (3.5-5.2) 12/13/17 22:20 Chloride 107 mEq/L (97-110) 12/13/17 22:20 Carbon Dioxide 21 mEq/l (22-31) L 12/13/17 22:20 Anion Gap 16 mEq/L (8-16) 12/13/17 22:20 BUN 29 mg/dL (7-23) H 12/13/17 22:20 Creatinine 0.6 mg/dL (0.6-1.0) 12/13/17 22:20 Estimated GFR > 60 12/13/17 22:20 Glucose 155 mg/dL (70-100) H 12/13/17 22:20 Calcium 10.5 mg/dL (8.5-10.4) H 12/13/17 22:20 Assessment & Plan Assessment: 62 yo F w/ recent admission for surgical resection of GIST tumor presents with nausea and vomiting x1 day. Plan: 1. Nausea, vomiting - Likely infectious noting is having similar symptoms. Clearly at risk for C. Diff noting recent hospital stay and antibiotics. Also had a positive PCR for Shiga-like toxin producing E. coli; this was not treated at the time as she was not having symptoms. - Clear liquids, mIVF - Repeat GI PCR 2. GIST tumor s/p surgical resection - See D/C summary from 12/[address] Odonnell for additional details. She underwent surgical resection and treated for associated abscess with 10 days of Invanz. She is currently awaiting Oncology visit to determine treatment. 3. PE - Diagnosed during recent admission, on dabigatran for this. She denies any signs of bleeding or blood in stool. She does have an IVC filter in place. 4. Severe protein calorie malnutrition - BMI 15, required TPN during last admission. Diet - Clears, ADAT Code - Full Ppx - Dabigatran Dispo - Admit to observation status
[2017-12-14] MEDS: D5W 1/2 NS 1,000 ML IV SCH ×3 (00:50→22:25)
[2017-12-14] MEDS: ONDANSETRON DISINTEGRATING 4 MG TAB PO PRN ×2 (02:30→09:23)
[2017-12-14 04:43] LABS: PLATELET COUNT 331 10^3/uL (150-400)
--- NOTE | 2017-12-14 10:31 | ASMTCASEMG ---
Living Arrangements What is your living Answers: With Spouse arrangement? Who do you live with? Type Of Residence What kind of residence do Answers: House you live in? Discharge Plan Comments Coordination Status Comments Notes: Pt is a 62 y/o female admitted for gastroentertits. Pt will most likely d/c without any needs when medically stable. No therapies ordered at this time. CM available for changes. Plan: Independent Date Signed: 12/14/2017 10:31 AM Electronically Signed By:LEIGH Das
[2017-12-14] MEDS: VANCOMYCIN 125 MG/2.5 ML UDL PO SCH ×3 (13:11→22:25)
--- NOTE | 2017-12-14 14:03 | GCON ---
[f rep st] CONSULTATION INPATIENT ONCOLOGY CONSULTATION. DATE OF CONSULTATION: 12/14/2017 REFERRING PHYSICIAN: Jordy Corrigan DO REASON FOR CONSULTATION: Gastrointestinal stromal tumor. 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 She is well known to me from clinic. I initially evaluated her in July 09 when she presented with 30 pounds of weight loss, microcytic anemia, and thrombocytosis. The anem ia appeared to be both due to iron deficiency and a chronic inflammation, as it did not resolve with intravenous iron repletion. I recommended endoscopy and a CT of the abdomen at the time, but she ins tead pursued alternative treatment with an herbalist. In October, she returned seeking to complete the evaluation that I had recommended. On November 07, a CT scan showed multiple enlarged lymph no sita and an aneurysmal dilation of the small bowel, concerning for lymphoma or another malignancy. Cindy vigil was seen in the outpatient setting by Gastroenterology, but then was admitted for progressive anemi a and weakness on November 22. On November 24, Dr. Toñito Turner did an upper endoscopy, where he found a large exophytic ulcerated mass in the mid jejunum. There was a perforation measuring 2-3 cm. She was then seen by Surgery and taken for exploratory laparotomy. The mass was resected. It required m ultiple bowel anastomoses. A small amount of tumor was left behind in the dome of the bladder. The pathology showed an aggressive GI stromal tumor. The tumor measured 14 cm. Mitotic rate was 48 gabo ses per high-powered field. There were few lymph nodes in the specimen without pathologic features. The cells were positive for CD117, vimentin, CD34 and negative for S100 and SMA. Molecular studies for c-KIT mutations are pending. Her course was complicated by pulmonary embolism, and she was started on heparin. She then developed bleeding at the anastomosis, and an IVC filter was placed. Anticoagulation was resumed several days later, and she was discharged on Pradaxa. She was initially on TPN but was not discharged on that o n December 11. Unfortunately, she is now admitted for diarrhea which developed over the past 24 kylie rs. She has watery stools without fever or blood. Stool cultures were positive for C difficile, as well as for norovirus. She has been taking Invanz for an intra-abdominal infection that was also dis covered at the time of the surgery. She was just started on vancomycin. PAST MEDICAL HISTORY: Otherwise unremarkable. CURRENT MEDICATIONS: Include Pradaxa and oral vancomycin. ALLERGIES: Penicillin. FAMILY HISTORY: Noncontributory. SOCIAL HISTORY: She is nonsmoker, nondrinker. Lives with her . REVIEW OF SYSTEMS: Aside from pertinent positives in HPI, 14-point review of systems negative. EXAMINATION: VITAL SIGNS: Her temperature was 36.8, blood pressure 108/62, heart rate 75, oxygen sa turation 94% on room air. GENERAL: She was thin, though appeared well. HEENT: Sclerae anicteric. Oropharynx was clear. NECK: Supple without lymphadenopathy. LUNGS: Clear to auscultation bilaterally. CARDIAC: Regular rhythm. No murmurs, gallops, rubs. ABDOMEN: Normoactive bowel sounds. Was mildly distended without tenderness, rebound, or guarding. EXTREMITIES: Without edema. SKIN: No petechiae, purpura. NEUROLOGIC: She is alert and oriented x3. LABORATORY DATA: White count 6.54, hemoglobin 11.2, platelets of 331. Sodium 146, potassium 3.5, ch loride 109, bicarb 22, BUN is 31, creatinine 0.6, alk phos 165, albumin 3.2. IMPRESSION: This is a 62-year-old woman with a gastrointestinal stromal tumor which has been resecte d. She now presents with infectious diarrhea, which is likely a combination of norovirus and Clostri dium difficile. We discussed the diagnosis and proposed treatment. Because of the high-risk features on the biopsy, as well as the fact that there was some gross tumor left behind, I am recommending that she start on imatinib 400 mg daily for at least a period of 1-3 years. This is a highly targeted therapy for this particular malignancy. I will also discuss with Dr. Rosen whether a repeat resection is feasible, t andrea that may be quite difficult, and we may need to keep her on chronic imatinib suppressive therap y. I will order this through our outpatient pharmacy, though I would like her diarrheal illness to r terrenceolve before we begin that therapy. In the meantime, I agree with the current plan to treat her diarrhea using oral vancomycin for the Cl ostridium difficile. She should make an appointment to see me in the clinic after she is discharged. Finally, her IVC filter should be removed relatively soon, as she does not need to have it long term care pharmacist, as there is no ongoing contraindication to anticoagulation. She will need to complete 6 months of P radaxa or another similar anticoagulant. /[id number]/MODL
--- NOTE | 2017-12-14 16:05 | HOSPPROG ---
Hospitalist Progress Note Assessment/Plan: Assessment: 62 yo F w/ recent admission for surgical resection of GIST tumor presents with nausea and vomiting x1 day most likely due to norovirus but also found to be positive for C diff 1. Nausea, vomiting, and diarrhea -continue supportive care. Will start oral vancomycin to complete a 7 day course. 2. GIST tumor s/p surgical resection -recommended outpatient follow-up with Dr. Jorge with plans to start Gleevec 3. PE - Diagnosed during recent admission, on dabigatran for this. She denies any signs of bleeding or blood in stool. She does have an IVC filter in place. 4. Severe protein calorie malnutrition - BMI 15, required TPN during last admission. Diet - Clears, ADAT Code - Full Ppx - Dabigatran Dispo - change to inpatient status given persistent nausea vomiting, diarrhea Subjective: Starting to feel better today but very weak. Continues to have diarrhea. Denies any abdominal pain. Objective: Vital Signs Temp Pulse Resp BP Pulse Ox 36.8 C 75 16 108/62 94 12/14/17 11:07 12/14/17 11:07 12/14/17 11:07 12/14/17 11:07 12/14/17 11:07 Microbiology 12/14/17 01:05 Gastrointestinal Tract Panel (PCR) - Final Stool Clostridium Difficile Detected Norovirus Gi/Gii Laboratory Results 12/14/17 04:11 12/14/17 04:11 12/13/17 12/14/17 12/15/17 05:59 05:59 05:59 Intake Total 2400 1220 Output Total 500 Balance 1900 1220 - Physical Exam Constitutional: no apparent distress, appears nourished, not in pain Ears, Nose, Mouth, Throat: moist mucous membranes, hearing normal, ears appear normal, no oral mucosal ulcers Cardiovascular: regular rate and rhythym, no murmur, rub, or gallop Respiratory: no respiratory distress, no rales or rhonchi, clear to auscultation Gastrointestinal: normoactive bowel sounds, soft, non-tender abdomen, no palpable masses, No guarding, No rebound Neurologic: AAOx3, sensation intact bilaterally ICD10 Worksheet Patient Problems: Problems Problem Status Onset Vertigo Acute Anemia Acute Acute gastroenteritis Acute
--- NOTE | 2017-12-14 16:24 | PDMN ---
Medical Necessity Medical necessity: M170 gastroenteritis- persistent N/V/D in pt with norovirus and C diff, - pt. with newly Dg GIST tumor, with recent resection further monitoring needed > 2 midnights .
[2017-12-14] MEDS: DABIGATRAN ETEXILATE MESYL 150 MG CAP PO SCH (22:25)
[2017-12-15] MEDS: VANCOMYCIN 125 MG/2.5 ML UDL PO SCH ×4 (06:42→22:04)
[2017-12-15] MEDS: D5W 1/2 NS 1,000 ML IV SCH ×2 (09:10→19:55)
[2017-12-15] MEDS: DABIGATRAN ETEXILATE MESYL 150 MG CAP PO SCH ×2 (09:11→22:04)
--- NOTE | 2017-12-15 14:47 | ASMTCMCOM ---
CM Note CM Note Notes: Pt with recent dx of GISt tumor eas readmitted with CDIFF and norovirus after DC to [facility]. Spoke with pt who wishes to return home with home care rather than SNF. PT has cleared pt to go home with HC. Pt chose [facility]. She will need RN/PT/OT. DC unclear. CM will continue to follow. Date Signed: 12/15/2017 02:46 PM Electronically Signed By:Joan Gaytan LCSW
--- NOTE | 2017-12-15 15:45 | HOSPPROG ---
Hospitalist Progress Note Assessment/Plan: Assessment: 62 yo F w/ recent admission for surgical resection of GIST tumor presents with nausea and vomiting x1 day most likely due to norovirus but also found to be positive for C diff 1. Nausea, vomiting, and diarrhea (improving) -continue supportive care. Will start oral vancomycin to complete a 7 day course. 2. GIST tumor s/p surgical resection -recommended outpatient follow-up with Dr. Jorge with plans to start Gleevec 3. PE - Diagnosed during recent admission, on dabigatran for this. She denies any signs of bleeding or blood in stool. She does have an IVC filter in place. 4. Severe protein calorie malnutrition - BMI 15, required TPN during last admission. Diet - Clears, ADAT Code - Full Ppx - Dabigatran Dispo - will continue inpatient care given the fact that she is not really eating at. Possible discharge 12/16 if appetite improves to complete a 7 day course of oral vancomycin Subjective: Improving diarrhea. No vomiting. Still with little appetite and not eating. No fevers or chills. Denies abdominal pain. Objective: Vital Signs Temp Pulse Resp BP Pulse Ox 36.6 C 55 L 14 133/65 H 98 12/15/17 12:26 12/15/17 12:26 12/15/17 12:26 12/15/17 12:26 12/15/17 12:26 12/14/17 12/15/17 12/16/17 05:59 05:59 05:59 Intake Total 1950 Output Total 2 Balance 1947 - Physical Exam Constitutional: no apparent distress, appears nourished, not in pain Cardiovascular: regular rate and rhythym, no murmur, rub, or gallop Respiratory: no respiratory distress, no rales or rhonchi, clear to auscultation Gastrointestinal: normoactive bowel sounds, soft, non-tender abdomen, no palpable masses, No guarding, No rebound Skin: no rashes or abrasions, no fluctuance, no induration ICD10 Worksheet Patient Problems: Problems Problem Status Onset Vertigo Acute Anemia Acute Acute gastroenteritis Acute
[2017-12-16] MEDS ORDERED: CALCIUM CARBONATE 500 MG CHEWABLE TAB PO PRN (02:35)
[2017-12-16] MEDS: D5W 1/2 NS 1,000 ML IV SCH (04:40)
[2017-12-16] MEDS: VANCOMYCIN 125 MG/2.5 ML UDL PO SCH ×4 (05:22→20:24)
[2017-12-16] MEDS: DABIGATRAN ETEXILATE MESYL 150 MG CAP PO SCH ×2 (09:14→20:24)
[2017-12-16] MEDS: [UNRECOGNIZED DRUG - OTHER] PO PRN ×2 (17:07→23:01)
--- NOTE | 2017-12-16 17:53 | HOSPPROG ---
Hospitalist Progress Note Assessment/Plan: 62-year-old female presented with nausea vomiting x1 day was found to be positive for norovirus and for C difficile. She is recently status post surgical resection of a GIST tumor. Today the patient continues to feel weak is had 1-2 episodes of loose stool but the diarrhea is improving. Her nausea and vomiting is also improving her appetite is slowly increase. Plan today would be to increase her diet as tolerated watch for diarrhea and as her strength and volume status improved she could be discharged. Patient is new to me today. -Nausea, vomiting, and diarrhea (improving) secondary to norovirus and C difficile. No seizure her white count is declining -continue supportive care. Will start oral vancomycin to complete a 7 day course. -GIST tumor s/p surgical resection -recommended outpatient follow-up with Dr. Jorge with plans to start Gleevec -PE - Diagnosed during recent admission, on dabigatran for this. She denies any signs of bleeding or blood in stool. She does have an IVC filter in place. - Severe protein calorie malnutrition - BMI 15, required TPN during last admission. Diet - Clears, ADAT Code - Full Ppx - Dabigatran Dispo - possible discharge tomorrow. Patient's appetite is slowly improving and she is anxious to return home. Subjective: Reports she has some appetite and has had only 1 or 2 episodes of loose stool. She is feeling improved but continues to feel quite weak no complaints of chest pain or vomiting Objective: Vital Signs Temp Pulse Resp BP Pulse Ox 36.6 C 63 14 127/73 H 97 12/16/17 09:50 12/16/17 09:50 12/16/17 09:50 12/16/17 09:50 12/16/17 09:50 12/15/17 12/16/17 12/17/17 05:59 05:59 05:59 Intake Total 1950 3015 Output Total 2 800 350 Balance 1948 4618 -350 - Time Spent With Patient Time Spent with Patient: greater than 35 minutes Time Spent with Patient: Greater than 35 minutes spent on this patients care, greater than 50% of time spent counseling, educating, and coordinating care regarding the above mentioned plan. - Pending Discharge Pending Discharge Within 24 Hours: Yes Pending Discharge Date: 12/17/17 Pending Discharge Time: 11:00 - Physical Exam Constitutional: no apparent distress, chronically ill appearing Eyes: PERRL, anicteric sclera Ears, Nose, Mouth, Throat: moist mucous membranes, hearing normal Cardiovascular: regular rate and rhythym, no murmur, rub, or gallop Respiratory: no respiratory distress, no rales or rhonchi Gastrointestinal: normoactive bowel sounds, tenderness, other (No masses or guarding or rebound.) Genitourinary: no bladder fullness Skin: warm Musculoskeletal: generalized weakness Neurologic: AAOx3, CN II-XII Intact Psychiatric: interacting appropriately ICD10 Worksheet Patient Problems: Problems Problem Status Onset Vertigo Acute Anemia Acute Acute gastroenteritis Acute
[2017-12-17] MEDS: D5W 1/2 NS 1,000 ML IV SCH (01:19)
[2017-12-17] MEDS: VANCOMYCIN 125 MG/2.5 ML UDL PO SCH ×3 (05:45→16:20)
[2017-12-17] MEDS: DABIGATRAN ETEXILATE MESYL 150 MG CAP PO SCH (09:15)
[2017-12-17] MEDS: [UNRECOGNIZED DRUG - OTHER] PO PRN (09:28)
[2017-12-17 11:46] VITALS: TEMP 97.5
[2017-12-17 11:47] VITALS: PULSE 66
--- NOTE | 2017-12-17 15:21 | PDIAF ---
- Diagnosis Code Status: Full Code - Medication Management Discharge Medications: Medications to Continue on Transfer Dabigatran Etexilate Mesyl [Pradaxa 150 MG (*)] 150 mg PO BID #60 cap 12/11/17 [ Last Taken 12/13/17 09:00] Vancomycin [Vancocin Oral Liquid] 125 mg PO QID #20 udl 12/15/17 [Last Taken Unknown] Discharge Medications: Refer to the Discharge Home Medication list for PRN reason. - Orders Services needed: Home Care, Registered Nurse, Physical Therapy, Occupational Therapy Home Care Face to Face: I certify that this patient was under my care and that I had the required [id number] encounter meeting the encounter requirements on the discharge day. My findings support the fact that the patient is homebound as defined in Home Care Face to Face Continued: CMS Chapter 7 Medicare Benefits Manual 30.1.1 , The condition of the patient is such that there exists a normal inability to leave home and consequently, leaving home would require a considerable and taxing effort. Isolation Type: CDIFF Isolation, Contact Isolation, Droplet Isolation Diet Recommendation: no restrictions on diet Diet Texture: Regular Texture Diet - Follow Up Care Current Providers and Referrals: Devin Rosen MD [Medical Doctor] - follow up in 1 week RALEIGH PEREIRA [Other] - follow up in 1 week
--- NOTE | 2017-12-17 16:05 | GDS ---
[f rep st] DISCHARGE SUMMARY NEW AND ACUTE DIAGNOSES: 1. Nausea, vomiting and diarrhea secondary to norovirus and C difficile infection. 2. 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 3. Pulmonary embolus on a prior admission, currently on anticoagulation therapy of dabigatran. 4. Severe protein caloric malnutrition. Secondary to the diarrhea and gastrointestinal stromal tumo r and surgery. BMI currently 15. CONSULTATION: With Oncology. PROCEDURES: None. HOSPITAL COURSE: This is a 62-year-old female, who on a prior admission was diagnosed [facility], and followup with Dr. Jorge for Oncology. She presented with nausea, vomiting and diarrhea, and was found to have a norovirus infection along with Clostridium difficile. She was treated with I V fluids, antiemetics, and vancomycin, and slowly and progressively improved. As the patient is sign ificantly weak, she is requesting home health services. Laboratories of [place] [address], which fell to a normal range of 6000, discharge hemoglobin of 11. Her electrolytes were normal with an albumin of 3.2. GI tract PCR showed C difficile detected, along with norovirus. DISCHARGE MEDICATIONS: New medications are vancomycin 125 mg p.o. q.i.d., for 10 days. She is to co ntinue her Pradaxa 150 mg b.i.d., and she will discontinue the polyethylene glycol previously prescri bed. FOLLOW UP: Followup will be with Dr. Jorge per her previously scheduled appointment. She also jensen s follow up appointments in the next 1-[address] Devin Rosen, and her PCP, Dr. Zev Powell . Time of this dictation and discharge was 45 minutes, greater than 50% to preparole counseling aide and coordinate her c are for home care, and discuss matters with she and her . I have telephoned her and c onfirmed these arrangements. /[id number]/MODL
[2017-12-17 16:29] VITALS: BP 127/99; RESP 18; O2SAT 91
--- NOTE | 2017-12-17 17:35 | ASDISCHSUM ---
Discharge Information Plan Status:Home with Home Health Medically Cleared to Leave:12/16/2017 Discharge Date:12/17/2017 04:42 PM CM D/C Disposition:Home Health Service ADT D/C Disposition:Home Health Service Projected Discharge Date:12/17/2017 12:00 AM Transportation at D/C:Family Discharge Delay Reason: Follow-Up Date:12/17/2017 12:00 AM Discharge Slot: Final Diagnosis:Gastroenteritis Placement Information Referral Type:*Home Health Care Services Referral ID:[id number] Provider Name:[facility] [address] [address] Address 2: City:[place] Selection Factors: State:[place] Patient Contact Information Contact Name:STEVO Relationship: Address:[address] [address] Work Phone: [facility]:[employer] [employer] Alternate Phone: [facility]/Zip Code:[place] [address] Email: Financial Information Financial Class:[employer] Primary Plan Desc:[employer] Primary Plan Number:[id number] Secondary Plan Desc: Secondary Plan Number: Assessment Information [facility] Initial CM Assessment Living Arrangements What is your living Answers: With Spouse arrangement? Who do you live with? Type Of Residence What kind of residence do Answers: House you live in? Discharge Plan Comments Coordination Status Comments Notes: Pt is a 62 y/o female admitted for gastroentertits. Pt will most likely d/c without any needs when medically stable. No therapies ordered at this time. CM available for changes. Plan: Independent Date Signed: 12/14/2017 10:31 AM Electronically Signed By:LEIGH Das [facility] CM Progress Note CM Note CM Note Notes: Pt with recent dx of GISt tumor eas readmitted with CDIFF and norovirus after DC to [facility]. Spoke with pt who wishes to return home with home care rather than SNF. PT has cleared pt to go home with HC. Pt chose [facility]. She will need RN/PT/OT. DC unclear. CM will continue to follow. Date Signed: 12/15/2017 02:46 PM Electronically Signed By:Joan Gaytan LCSW Case Management Discharge Plan Note Case Management Discharge Discharge Order Complete? Answers: Yes Patient to Obtain Answers: via Family Medications Transportation Arranged Answers: Family/Friends Transport will Pick (Date 12/17/2017 12:00 AM & Time) Faxed Final Orders Answers: Yes Notes: [facility] Family Notified Answers: Yes Notes: to transport ho nd Discharge Comments Notes: Patient has been discharged home with [facility] RN, PT, OT. Date Signed: 12/17/2017 05:34 PM Electronically Signed By:Marialuisa Nowak LCSW Intervention Information
== END 2017-12-17 16:42 | disposition home health service (06) | DRG 371 ==
LOC: EDUNIT# → F2W 12-14 00:15 → OBSVTOIN 12-14 16:00 → F3E 12-16 19:19
PROVIDERS: ADMIT Student in an Organized Health Care Education/Training Program; ATTEND Internal Medicine Pulmonary Disease
DX: A04.72 Enterocolitis due to Clostridium difficile, not specified as recurrent (principal); A08.11 Acute gastroenteropathy due to Norwalk agent; C49.A3 Gastrointestinal stromal tumor of small intestine; E43 Unspecified severe protein-calorie malnutrition; Z68.1 Body mass index [BMI] 19.9 or less, adult; R91.1 Solitary pulmonary nodule; Z79.01 Long term (current) use of anticoagulants; Z79.2 Long term (current) use of antibiotics; Z86.718 Personal history of other venous thrombosis and embolism; Z86.711 Personal history of pulmonary embolism; Z86.19 Personal history of other infectious and parasitic diseases; Z95.828 Presence of other vascular implants and grafts; Z90.49 Acquired absence of other specified parts of digestive tract; Z88.0 Allergy status to penicillin; Z88.2 Allergy status to sulfonamides
CPT/HCPCS: 97161-GP; G0378

== ENCOUNTER 2018-01-10 09:16 | Day surgery (SDC) | payer OTHER ==
[2018-01-10] MEDS ORDERED: MEPERIDINE 25 MG/ML SYR IVP PRN (09:50)
[2018-01-10] MEDS ORDERED: FLUMAZENIL 0.5 MG/5 ML MDV IVP PRN (09:50)
[2018-01-10] MEDS ORDERED: MIDAZOLAM 2 MG/2 ML VIAL IVP PRN (09:50)
[2018-01-10] MEDS ORDERED: fentaNYL 100 MCG/2 ML INJ IVP PRN (09:50)
[2018-01-10] MEDS ORDERED: NALOXONE HCL 0.4 MG/ML INJ IVP PRN (09:50)
[2018-01-10] MEDS ORDERED: NS 1,000 ML IV SCH (10:00)
[2018-01-10 10:23] VITALS: TEMP 97
[2018-01-10] MEDS ORDERED: fentaNYL 100 MCG/2 ML INJ ONE (10:58)
[2018-01-10] MEDS ORDERED: NALOXONE HCL 0.4 MG/ML INJ ONE (10:58)
[2018-01-10] MEDS ORDERED: FLUMAZENIL 0.5 MG/5 ML MDV IVP ONE (10:58)
[2018-01-10] MEDS ORDERED: MIDAZOLAM 2 MG/2 ML VIAL ONE (10:58)
--- NOTE | 2018-01-10 11:31 | PDPROPOC ---
Sedation Plan of Care Sedation Plan of Care: vital signs stable, mental status noted, patient educated of risks, benefits, alternatives, patient can tolerate sedation ASA Classification: ASA 2 Planned drugs: fentanyl, midazolam Mallampati Score: Class 2 Mallampati Reference Image: Patient passed 3-3-2 rule?: Yes
--- NOTE | 2018-01-10 11:33 | PDGENHP ---
History & Physical Chief Complaint: filter placed 12/01/17. 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 Now anticoagulated. Pertinent Past, Social, Family History: GIB, now resolved. Relevant Physical Exam: stable patient. Cardiorespiratory Assessment: RRR, CTA
[2018-01-10] MEDS ORDERED: IOPAMIDOL (ISOVUE-300) 100 ML BTL ONE (11:55)
[2018-01-10] MEDS ORDERED: ACETAMINOPHEN 325 MG TAB PO PRN (12:39)
[2018-01-10] MEDS ORDERED: ONDANSETRON 4 MG/2 ML VIAL IVP PRN (12:39)
[2018-01-10 12:40] VITALS: PULSE 67
--- NOTE | 2018-01-10 12:43 | PDRADPN ---
Radiology Procedure Note Date of Procedure: 01/10/18 Radiologist: Colette Glass Anesthesia: IV Sedation Pre-op Diagnosis: DVT AND PE AND GI BLEEDING Post-op Diagnosis: SAME Indication: NOW ABLE TO ANTICOAGULATE. FILTER NEEDS REMOVAL Procedure: FILTER REMOVAL Finding(s): no IVC clot; filter removed. Inf/Abcess present in the surg proc area at time of surgery?: No Complications: none
[2018-01-10 12:46] VITALS: RESP 13
[2018-01-10 13:11] VITALS: BP 119/75; O2SAT 99
== END 2018-01-10 13:20 | disposition home or self-care (01) ==
LOC: FIMAGING 09:16
PROVIDERS: ATTEND Internal Medicine Hematology & Oncology
DX: Z45.2 Encounter for adjustment and management of vascular access device (principal); Z86.711 Personal history of pulmonary embolism; Z86.718 Personal history of other venous thrombosis and embolism; Z85.09 Personal history of malignant neoplasm of other digestive organs; Z79.01 Long term (current) use of anticoagulants; Z88.0 Allergy status to penicillin
CPT/HCPCS: C1769; C1892; J2250; J2310; J3010; Q9967

== ENCOUNTER 2018-11-21 09:16 | Outpatient (CLI) | payer OTHER ==
[~2018-11-21 09:16] MED LIST: ALTEPLASE 2 MG VIAL IVP PRN; FLUMAZENIL 0.5 MG/5 ML MDV IVP PRN; GLUCAGON HCL 1 MG VIAL IVP PRN; HEPARIN 10,000 UNIT/10 ML MDV (1,000 UNIT/ML) IVP PRN; MEPERIDINE 25 MG/ML SYR IVP PRN; MIDAZOLAM 2 MG/2 ML VIAL IVP PRN; NALOXONE HCL 0.4 MG/ML INJ IVP PRN; NS 1,000 ML IV SCH; PROTAMINE SULFATE 50 MG/5 ML VIAL IVP PRN; fentaNYL 100 MCG/2 ML INJ IVP PRN
[2018-11-21] MEDS ORDERED: LIDOCAINE 1% 300 MG/30 ML SDV ONE (10:24)
[2018-11-21] MEDS ORDERED: fentaNYL 100 MCG/2 ML INJ ONE ×2 (10:43→12:00)
[2018-11-21] MEDS ORDERED: MIDAZOLAM 2 MG/2 ML VIAL ONE ×2 (10:44→12:00)
[2018-11-21] MEDS ORDERED: oxyCODONE IR 5 MG TAB PO PRN (12:09)
[2018-11-21] MEDS ORDERED: ONDANSETRON 4 MG/2 ML VIAL IVP PRN (12:09)
--- NOTE | 2018-11-21 12:11 | PDRADPRE ---
Radiology History & Physical Indication for procedure: cancer (GIST, new liver lesions; Plan for US guided left lobe lesion) Home medications: Gleevec 100 mg (*) 300 mg PO DAILY 11/15/18 [Last Taken Unknown] Allergies/Adverse Reactions: Penicillins Allergy (Verified 11/15/18 16:22) Rash Sulfa (Sulfonamide Antibiotics) Allergy (Verified 11/15/18 16:22) Itching Mental status: A&Ox3 Heart exam: regular rate and rhythm Lungs exam: clear to auscultation Mallampati Score: Class 2
--- NOTE | 2018-11-21 12:13 | PDRADPN ---
Radiology Procedure Note Date of Procedure: 11/21/18 Radiologist: Laron Vega Anesthesia: IV Sedation Pre-op Diagnosis: GIST Post-op Diagnosis: GIST Indication: Liver lesion Procedure: US guided left lobe liver lesion Finding(s): US guided left hepatic lobe lesion; two 18 ga core biopsies obtained. Please see separately dictated radiology report for full details. Inf/Abcess present in the surg proc area at time of surgery?: No
[2018-11-21 15:39] VITALS: BP 119/96
== END 2018-11-21 15:32 | disposition home or self-care (01) ==
LOC: FIMAGING 09:16 → MERGE 09:16 → FIMAGING 15:32
PROVIDERS: ATTEND Internal Medicine Hematology & Oncology
DX: C49.A0 Gastrointestinal stromal tumor, unspecified site (principal); K76.9 Liver disease, unspecified
CPT/HCPCS: J2250; J3010